=== PATIENT | male | born 1995 | race Caucasian/White ===

== ENCOUNTER 2017-11-04 22:26 | Emergency (ER) | payer SELFPAY ==
[2017-11-04 23:31] LABS: #Basophils 0.1 thou/uL (0.0-0.2); #Eosinphils 0.1 thou/uL (0.0-0.7); #Lymphocytes 2.4 thou/uL (1.20-3.40); #Monocytes 0.6 thou/uL (0.11-0.59); #Neutrophils 6.9 thou/uL (1.40-6.50); %Basophils 0.5 % (0.0-1.0); %Eosinophils 1.1 % (0.0-10.0); %Lymphocytes 23.5 % (21.0-51.0); %Monocytes 6.1 % (0.0-10.0); Hematocrit 39.7 % (42.0-52.0); Mean Platelet Volume 7.7 fL (7.4-10.4); Red Blood Cell (RBC) Count 4.46 mill/uL (4.70-6.10)
[2017-11-04 23:54] LABS: ALT (SGPT) 20 U/L (8-55); AST (SGOT) 38 U/L (5-34); Acetaminophen Less than 6.0 mcg/mL (10.0-30.0); Alkaline Phosphatase 78 U/L (40-150); Anion Gap 13 mmol/L (10-20); BUN (Urea Nitrogen) 16 mg/dL (8.9-20.6); Bilirubin, Total 0.8 mg/dL (0.2-1.2); CK (CPK) 1643 U/L (30-200); Calc. Creatinine Clearance 0 mL/min (70-130); Calcium 10.3 mg/dL (7.8-10.44); Carbon Dioxide 29 mmol/L (22-29); Chloride 105 mmol/L (98-107); Estimated GFR-MDRD 85; Globulin 3.1 g/dL (2.4-3.5); Protein, Total 7.9 g/dL (6.0-8.3); Salicylate Less than 8.0 mg/dL (15.0-30.0)
== END 2017-11-05 02:49 | disposition home or self-care (01) ==
LOC: ERS 22:26
DX: G47.00 Insomnia, unspecified (principal); R79.89 Other specified abnormal findings of blood chemistry; F31.9 Bipolar disorder, unspecified; F17.210 Nicotine dependence, cigarettes, uncomplicated
CPT/HCPCS: 36415; 80053; 80307; 82550; 84443; 85025; 99283

== ENCOUNTER 2017-11-15 15:29 | Emergency (ER) | payer SELFPAY | END 2017-11-15 15:54 | disposition home or self-care (01) | LOC: ERS 15:29 | DX: F12.10 Cannabis abuse, uncomplicated (principal); F10.10 Alcohol abuse, uncomplicated; F17.210 Nicotine dependence, cigarettes, uncomplicated | CPT/HCPCS: 99284 ==

== ENCOUNTER 2018-04-01 19:07 | Emergency (ER) | payer SELFPAY ==
--- NOTE | 2018-04-01 19:51 | RAD ---
CHEST ONE VIEW 04/01/18 HISTORY: Chest pain. COMPARISON: Chest radiograph 2015. FINDINGS: Lungs are clear. No pneumothorax or effusion. The cardiac silhouette and mediastinal contours are wit hin normal limits. IMPRESSION: No acute intrathoracic abnormality. POS: GRICELDAH
[2018-04-01 20:14] LABS: #Basophils 0.1 thou/uL (0.0-0.2); #Eosinphils 0.3 thou/uL (0.0-0.7); #Lymphocytes 3.1 thou/uL (1.20-3.40); #Monocytes 0.5 thou/uL (0.11-0.59); #Neutrophils 7.7 thou/uL (1.40-6.50); %Basophils 0.5 % (0.0-1.0); %Eosinophils 2.6 % (0.0-10.0); %Lymphocytes 26.7 % (21.0-51.0); %Neutrophils 66.1 % (42.0-75.0); Hemoglobin 14.9 g/dL (14.0-18.0); Mean Corpuscular HGB CONC 35.2 g/dL (32.0-36.0); Platelet Count 226 thou/uL (130-400); RBC Distribution Width 11.3 % (11.5-14.5); White Blood Cell (WBC) Count 11.6 thou/uL (4.8-10.8)
[2018-04-01 20:43] LABS: Anion Gap 14 mmol/L (10-20); Carbon Dioxide 22 mmol/L (22-29); Chloride 106 mmol/L (98-107); Potassium 3.5 mmol/L (3.5-5.1); Sodium 138 mmol/L (136-145)
[2018-04-01 20:50] LABS: ALT (SGPT) 17 U/L (8-55); AST (SGOT) 25 U/L (5-34); Albumin 4.4 g/dL (3.5-5.0); Alkaline Phosphatase 64 U/L (40-150); BUN (Urea Nitrogen) 16 mg/dL (8.9-20.6); Bilirubin, Total 1.2 mg/dL (0.2-1.2); CK (CPK) 775 U/L (30-200); Calc. Creatinine Clearance 0 mL/min (70-130); Calcium 8.6 mg/dL (7.8-10.44); Estimated GFR-MDRD Greater than 90; Globulin 2.5 g/dL (2.4-3.5); Glucose 128 mg/dL (70-105); Protein, Total 6.9 g/dL (6.0-8.3)
--- NOTE | 2018-04-04 15:23 | EKG ---
Test Reason : Blood Pressure : / mmHG Vent. Rate : 084 BPM Atrial Rate : 084 BPM P-R Int : 126 ms QRS Dur : 100 ms QT Int : 376 ms P-R-T Axes : 067 021 020 degrees QTc Int : 444 ms Normal sinus rhythm Normal ECG Confirmed by TARIK GRIMES, ASHLYN Jean ([id number]), greeting card editor ROXANA AVELAR ([id number]) on 04/04/2018 3:22:57 PM Referred By: TARIK Confirmed By:ASHLYN MONTANEZ MD
== END 2018-04-01 20:23 | disposition left against medical advice (07) ==
LOC: ERS 19:07
DX: R07.9 Chest pain, unspecified (principal); F17.210 Nicotine dependence, cigarettes, uncomplicated; F31.9 Bipolar disorder, unspecified; Z79.899 Other long term (current) drug therapy
CPT/HCPCS: 36415; 71045; 80053; 82550; 83880; 85025; 93005

== ENCOUNTER 2018-04-23 21:07 | Emergency (ER) | payer SELFPAY ==
[2018-04-23 21:31] LABS: Bilirubin Negative (Negative); Blood, Urine Negative (Negative); Clarity CLEAR (Clear); Glucose, Urine (Dipstick) Negative (Negative); Leukocyte Negative (Negative); Nitrite Negative (Negative); Protein, Urine (Dipstick) Negative (Neg-Trace); Specific Gravity, Urine 1.023 (1.002-1.036)
[2018-04-23 21:41] LABS: Amphetamine Not Detected (NotDetected); Barbiturates Screen Not Detected (NotDetected); Benzodiazepine Screen Not Detected (NotDetected); Cocaine Metabolite Screen Not Detected (NotDetected); Medtox Control Line Valid? VALID (VALID); Medtox Reader # READER 1; Methadone Not Detected (NotDetected); Methamphetamine Not Detected (NotDetected); Opiate Screen Not Detected (NotDetected); Oxycodone Screen Not Detected (NotDetected); Phencyclidine (PCP) Not Detected (NotDetected); THC/Cannabinoid Screen Detected (NotDetected); Tricyclic Screen Not Detected (NotDetected)
[2018-04-23 21:48] LABS: #Basophils 0.1 thou/uL (0.0-0.2); #Eosinphils 0.3 thou/uL (0.0-0.7); #Lymphocytes 2.6 thou/uL (1.20-3.40); #Monocytes 0.6 thou/uL (0.11-0.59); #Neutrophils 7.2 thou/uL (1.40-6.50); %Basophils 0.5 % (0.0-1.0); %Eosinophils 2.4 % (0.0-10.0); %Lymphocytes 24.2 % (21.0-51.0); %Monocytes 5.3 % (0.0-10.0); %Neutrophils 67.6 % (42.0-75.0); Mean Corpuscular HGB CONC 35.6 g/dL (32.0-36.0); Mean Platelet Volume 7.6 fL (7.4-10.4); Platelet Count 202 thou/uL (130-400); RBC Distribution Width 11.7 % (11.5-14.5); Red Blood Cell (RBC) Count 4.84 mill/uL (4.70-6.10); White Blood Cell (WBC) Count 10.6 thou/uL (4.8-10.8)
[2018-04-23 21:56] LABS: INR-International Normal Ratio 0.9; PTT 27.7 SEC (22.9-36.1); Prothrombin Time 12.6 SEC (12.0-14.7)
[2018-04-23 22:07] LABS: ALT (SGPT) 119 U/L (8-55); AST (SGOT) 59 U/L (5-34); Albumin 4.4 g/dL (3.5-5.0); Alkaline Phosphatase 58 U/L (40-150); Anion Gap 15 mmol/L (10-20); BUN (Urea Nitrogen) 18 mg/dL (8.9-20.6); Bilirubin, Total 0.6 mg/dL (0.2-1.2); Calc. Creatinine Clearance 0 mL/min (70-130); Calcium 9.3 mg/dL (7.8-10.44); Carbon Dioxide 25 mmol/L (22-29); Chloride 105 mmol/L (98-107); Estimated GFR-MDRD Greater than 90; Globulin 2.6 g/dL (2.4-3.5); Glucose 91 mg/dL (70-105); Potassium 3.9 mmol/L (3.5-5.1); Sodium 141 mmol/L (136-145)
[2018-04-23 22:08] LABS: Acetaminophen Less than 6.0 mcg/mL (10.0-30.0); Alcohol Less than 10 mg/dL (Less than 10); CK (CPK) 281 U/L (30-200); Salicylate Less than 8.0 mg/dL (15.0-30.0)
[2018-04-24] MEDS ORDERED: diphenhydrAMINE 50 MG/ML VIAL ONE (10:47)
[2018-04-24] MEDS ORDERED: Haloperidol Lactate 5 MG/ML VIAL ONE (10:47)
[2018-04-24] MEDS ORDERED: Lorazepam 2 MG/ML VIAL ONE (10:48)
== END 2018-04-27 17:52 | disposition home or self-care (01) ==
LOC: ERS 21:07
DX: F43.20 Adjustment disorder, unspecified (principal); F17.210 Nicotine dependence, cigarettes, uncomplicated; F31.9 Bipolar disorder, unspecified; Z79.899 Other long term (current) drug therapy
CPT/HCPCS: 36415; 80053; 80306; 80307; 81003; 82550; 84443; 85025; 85610; 85730; 99285; J1200; J1630; J2060

== ENCOUNTER 2018-05-06 18:22 | Emergency (ER) | payer SELFPAY ==
[2018-05-06] MEDS ORDERED: Ziprasidone 20 MG VIAL ONE (18:34)
[2018-05-06 18:39] LABS: #Eosinphils 0.2 thou/uL (0.0-0.7); #Lymphocytes 2.3 thou/uL (1.20-3.40); #Monocytes 0.4 thou/uL (0.11-0.59); #Neutrophils 6.3 thou/uL (1.40-6.50); %Basophils 0.5 % (0.0-1.0); %Eosinophils 2.5 % (0.0-10.0); %Lymphocytes 24.4 % (21.0-51.0); %Monocytes 4.8 % (0.0-10.0); %Neutrophils 67.8 % (42.0-75.0); Hemoglobin 14.3 g/dL (14.0-18.0); Mean Corpuscular HGB CONC 35.9 g/dL (32.0-36.0); Mean Corpuscular Hemoglobin 31.3 pg (27.0-31.0); Mean Corpuscular Volume 87.1 fL (78.0-98.0); Mean Platelet Volume 7.5 fL (7.4-10.4); Platelet Count 229 thou/uL (130-400); RBC Distribution Width 11.7 % (11.5-14.5); Red Blood Cell (RBC) Count 4.58 mill/uL (4.70-6.10); White Blood Cell (WBC) Count 9.3 thou/uL (4.8-10.8)
[2018-05-06 18:47] LABS: Bilirubin Negative (Negative); Blood, Urine Negative (Negative); Clarity CLEAR (Clear); Glucose, Urine (Dipstick) Negative (Negative); Leukocyte Negative (Negative); Nitrite Negative (Negative); Protein, Urine (Dipstick) Negative (Neg-Trace); Specific Gravity, Urine 1.021 (1.002-1.036)
[2018-05-06 18:54] LABS: ALT (SGPT) 35 U/L (8-55); AST (SGOT) 19 U/L (5-34); Albumin 4.8 g/dL (3.5-5.0); Alkaline Phosphatase 69 U/L (40-150); Anion Gap 15 mmol/L (10-20); BUN (Urea Nitrogen) 13 mg/dL (8.9-20.6); Bilirubin, Total 0.7 mg/dL (0.2-1.2); Calc. Creatinine Clearance 0 mL/min (70-130); Calcium 9.6 mg/dL (7.8-10.44); Carbon Dioxide 24 mmol/L (22-29); Chloride 105 mmol/L (98-107); Estimated GFR-MDRD Greater than 90; Globulin 2.5 g/dL (2.4-3.5); Glucose 97 mg/dL (70-105); Protein, Total 7.3 g/dL (6.0-8.3); Sodium 140 mmol/L (136-145)
[2018-05-06 18:56] LABS: Amphetamine Not Detected (NotDetected); Barbiturates Screen Not Detected (NotDetected); Benzodiazepine Screen Not Detected (NotDetected); Cocaine Metabolite Screen Not Detected (NotDetected); Medtox Control Line Valid? VALID (VALID); Medtox Reader # READER 1; Methadone Not Detected (NotDetected); Methamphetamine Not Detected (NotDetected); Opiate Screen Not Detected (NotDetected); Oxycodone Screen Not Detected (NotDetected); Phencyclidine (PCP) Not Detected (NotDetected); THC/Cannabinoid Screen Detected (NotDetected); Tricyclic Screen Not Detected (NotDetected)
[2018-05-06 19:00] LABS: Acetaminophen Less than 6.0 mcg/mL (10.0-30.0); Alcohol Less than 10 mg/dL (Less than 10); CK (CPK) 265 U/L (30-200); Salicylate Less than 8.0 mg/dL (15.0-30.0)
--- NOTE | 2018-05-06 19:09 | CT ---
CT BRAIN 05/06/18 PROVIDED CLINICAL HISTORY: Altered mental status. COMPARISON: 11/08/12 FINDINGS: The ventricular system is unchanged in size and morphology. There is no evidence for intracranial hem orrhage or mass effect. The extracranial soft tissues and osseous structures demonstrate no acute fin dings. IMPRESSION: No evidence for intracranial hemorrhage or mass effect. POS: OFF
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
== END 2018-05-06 23:58 | disposition home or self-care (01) ==
LOC: ERS 18:22
DX: F12.10 Cannabis abuse, uncomplicated (principal); R45.1 Restlessness and agitation; F31.9 Bipolar disorder, unspecified; F17.210 Nicotine dependence, cigarettes, uncomplicated
CPT/HCPCS: 51702; 70450; 72125; 80053; 80306; 80307; 81003; 82550; 84443; 85025; 93005; 96372; J3486

== ENCOUNTER 2018-06-11 07:23 | Emergency (ER) | payer SELFPAY ==
[2018-06-11 07:46] LABS: #Basophils 0.1 thou/uL (0.0-0.2); #Eosinphils 0.2 thou/uL (0.0-0.7); #Lymphocytes 1.5 thou/uL (1.20-3.40); #Monocytes 0.3 thou/uL (0.11-0.59); #Neutrophils 6.4 thou/uL (1.40-6.50); %Basophils 0.7 % (0.0-1.0); %Eosinophils 1.8 % (0.0-10.0); %Lymphocytes 17.3 % (21.0-51.0); %Monocytes 3.8 % (0.0-10.0); %Neutrophils 76.3 % (42.0-75.0); Hemoglobin 14.8 g/dL (14.0-18.0); Mean Corpuscular HGB CONC 35.1 g/dL (32.0-36.0); Mean Corpuscular Hemoglobin 31.3 pg (27.0-31.0); Mean Corpuscular Volume 89.2 fL (78.0-98.0); Mean Platelet Volume 8.1 fL (7.4-10.4); Platelet Count 171 thou/uL (130-400); RBC Distribution Width 11.6 % (11.5-14.5); Red Blood Cell (RBC) Count 4.73 mill/uL (4.70-6.10); White Blood Cell (WBC) Count 8.4 thou/uL (4.8-10.8)
[2018-06-11 07:53] LABS: Bilirubin Negative (Negative); Blood, Urine Negative (Negative); Clarity CLEAR (Clear); Glucose, Urine (Dipstick) Negative (Negative); Leukocyte Negative (Negative); Nitrite Negative (Negative); Protein, Urine (Dipstick) Negative (Neg-Trace); Specific Gravity, Urine 1.009 (1.002-1.036); Urobilinogen 0.2 mg/dL (0.2-1.0); pH, Urine 7.5 (5.0-9.0)
[2018-06-11 08:04] LABS: Amphetamine Not Detected (NotDetected); Barbiturates Screen Not Detected (NotDetected); Benzodiazepine Screen Not Detected (NotDetected); Cocaine Metabolite Screen Not Detected (NotDetected); Medtox Control Line Valid? VALID (VALID); Medtox Reader # READER 4; Methadone Not Detected (NotDetected); Methamphetamine Not Detected (NotDetected); Opiate Screen Not Detected (NotDetected); Oxycodone Screen Not Detected (NotDetected); Phencyclidine (PCP) Not Detected (NotDetected); THC/Cannabinoid Screen Detected (NotDetected); Tricyclic Screen Not Detected (NotDetected)
[2018-06-11] MEDS ORDERED: Ibuprofen 200 MG TAB ONE (08:05)
[2018-06-11 08:08] LABS: ALT (SGPT) 19 U/L (8-55); AST (SGOT) 15 U/L (5-34); Acetaminophen Less than 6.0 mcg/mL (10.0-30.0); Albumin 4.6 g/dL (3.5-5.0); Alcohol Less than 10 mg/dL (Less than 10); Alkaline Phosphatase 60 U/L (40-150); Anion Gap 12 mmol/L (10-20); BUN (Urea Nitrogen) 11 mg/dL (8.9-20.6); Bilirubin, Total 0.7 mg/dL (0.2-1.2); Calc. Creatinine Clearance 0 mL/min (70-130); Calcium 9.2 mg/dL (7.8-10.44); Carbon Dioxide 25 mmol/L (22-29); Chloride 106 mmol/L (98-107); Estimated GFR-MDRD Greater than 90; Globulin 2.5 g/dL (2.4-3.5); Glucose 100 mg/dL (70-105); Protein, Total 7.1 g/dL (6.0-8.3); Salicylate Less than 8.0 mg/dL (15.0-30.0); Sodium 139 mmol/L (136-145)
== END 2018-06-11 12:00 | disposition home or self-care (01) ==
LOC: ERS 07:23
DX: F32.9 Major depressive disorder, single episode, unspecified (principal); F17.210 Nicotine dependence, cigarettes, uncomplicated
CPT/HCPCS: 36415; 80053; 80306; 80307; 81003; 84443; 85025; 93005

== ENCOUNTER 2018-07-06 22:37 | Emergency (ER) | payer SELFPAY ==
[2018-07-06] MEDS ORDERED: Ibuprofen 800 MG TAB ONE (22:49)
[2018-07-06] MEDS ORDERED: diphenhydrAMINE 25 MG CAP ONE (22:49)
[2018-07-06] MEDS ORDERED: Metoclopramide HCl 10 MG TAB PO SCH (23:00)
[2018-07-06 23:09] LABS: #Eosinphils 0.2 thou/uL (0.0-0.7); #Lymphocytes 2.2 thou/uL (1.20-3.40); #Monocytes 0.5 thou/uL (0.11-0.59); #Neutrophils 6.2 thou/uL (1.40-6.50); %Basophils 0.5 % (0.0-1.0); %Lymphocytes 24.1 % (21.0-51.0); %Neutrophils 68.5 % (42.0-75.0); Hemoglobin 15.3 g/dL (14.0-18.0); Mean Corpuscular HGB CONC 35.9 g/dL (32.0-36.0); Mean Corpuscular Hemoglobin 31.7 pg (27.0-31.0); Mean Corpuscular Volume 88.1 fL (78.0-98.0); Mean Platelet Volume 7.7 fL (7.4-10.4); Platelet Count 218 thou/uL (130-400); RBC Distribution Width 11.8 % (11.5-14.5); Red Blood Cell (RBC) Count 4.83 mill/uL (4.70-6.10); White Blood Cell (WBC) Count 9.1 thou/uL (4.8-10.8)
[2018-07-06 23:15] LABS: Bilirubin Small (Negative); Blood, Urine Negative (Negative); Clarity CLEAR (Clear); Glucose, Urine (Dipstick) Negative (Negative); Leukocyte Negative (Negative); Nitrite Negative (Negative); Protein, Urine (Dipstick) 30 mg/dL (Neg-Trace); Specific Gravity, Urine 1.038 (1.002-1.036)
[2018-07-06 23:17] LABS: Bacteria/HPF None Seen HPF (None Seen); Hyaline Casts/LPF 0-3 HYALINE CAST LPF (0-3 Hyaline); RBC/HPF 0-3 HPF (0-3); Squamous Epithelial None Seen HPF (0-3); WBC/HPF 0-3 HPF (0-3)
[2018-07-06 23:23] LABS: Medtox Reader # READER 1
[2018-07-06 23:24] LABS: Amphetamine Not Detected (NotDetected); Barbiturates Screen Not Detected (NotDetected); Benzodiazepine Screen Not Detected (NotDetected); Cocaine Metabolite Screen Not Detected (NotDetected); Medtox Control Line Valid? VALID (VALID); Methadone Not Detected (NotDetected); Methamphetamine Not Detected (NotDetected); Opiate Screen Not Detected (NotDetected); Oxycodone Screen Not Detected (NotDetected); Phencyclidine (PCP) Not Detected (NotDetected); THC/Cannabinoid Screen Detected (NotDetected); Tricyclic Screen Not Detected (NotDetected)
[2018-07-06 23:32] LABS: Acetaminophen Less than 6.0 mcg/mL (10.0-30.0); Alcohol Less than 10 mg/dL (Less than 10); CK (CPK) 154 U/L (30-200); Salicylate Less than 8.0 mg/dL (15.0-30.0)
[2018-07-06 23:33] LABS: ALT (SGPT) 17 U/L (8-55); AST (SGOT) 15 U/L (5-34); Albumin 4.9 g/dL (3.5-5.0); Alkaline Phosphatase 74 U/L (40-150); Anion Gap 14 mmol/L (10-20); BUN (Urea Nitrogen) 16 mg/dL (8.9-20.6); Bilirubin, Total 1.1 mg/dL (0.2-1.2); Calc. Creatinine Clearance 0 mL/min (70-130); Calcium 9.8 mg/dL (7.8-10.44); Carbon Dioxide 26 mmol/L (22-29); Chloride 104 mmol/L (98-107); Estimated GFR-MDRD Greater than 90; Glucose 116 mg/dL (70-105); Lipase 28 U/L (8-78); Potassium 3.9 mmol/L (3.5-5.1); Protein, Total 7.9 g/dL (6.0-8.3); Sodium 140 mmol/L (136-145)
[2018-07-10] MEDS ORDERED: OLANZapine 5 MG TAB PO SCH (01:00)
--- NOTE | 2018-07-11 12:17 | EKG ---
Test Reason : Blood Pressure : / mmHG Vent. Rate : 046 BPM Atrial Rate : 046 BPM P-R Int : 126 ms QRS Dur : 102 ms QT Int : 398 ms P-R-T Axes : 060 018 014 degrees QTc Int : 348 ms Sinus bradycardia Otherwise normal ECG Confirmed by LYN COSTELLO ([id number]), video effects editor YANG PRIDE ([id number]) on 07/11/2018 12:16:51 PM Referred By: Confirmed By:LYN COSTELLO
== END 2018-07-10 13:16 | disposition home or self-care (01) ==
LOC: ERS 22:37
DX: R45.851 Suicidal ideations (principal); F12.10 Cannabis abuse, uncomplicated; F17.210 Nicotine dependence, cigarettes, uncomplicated; F31.9 Bipolar disorder, unspecified
CPT/HCPCS: 36415; 80053; 80306; 80307; 81003; 81015; 82550; 83690; 84443; 85025; 93005

== ENCOUNTER 2018-08-21 14:12 | Emergency (ER) | payer SELFPAY ==
[2018-08-21 15:47] LABS: #Eosinphils 0.2 thou/uL (0.0-0.7); #Lymphocytes 1.9 thou/uL (1.20-3.40); #Monocytes 0.6 thou/uL (0.11-0.59); #Neutrophils 7.2 thou/uL (1.40-6.50); %Basophils 0.3 % (0.0-1.0); %Eosinophils 2.4 % (0.0-10.0); %Lymphocytes 19.5 % (21.0-51.0); %Monocytes 5.6 % (0.0-10.0); %Neutrophils 72.2 % (42.0-75.0); Hemoglobin 14.2 g/dL (14.0-18.0); Mean Corpuscular HGB CONC 34.8 g/dL (32.0-36.0); Mean Corpuscular Hemoglobin 30.9 pg (27.0-31.0); Mean Corpuscular Volume 88.8 fL (78.0-98.0); Mean Platelet Volume 8.6 fL (7.4-10.4); Platelet Count 213 thou/uL (130-400); RBC Distribution Width 11.8 % (11.5-14.5); Red Blood Cell (RBC) Count 4.58 mill/uL (4.70-6.10); White Blood Cell (WBC) Count 9.9 thou/uL (4.8-10.8)
[2018-08-21 16:06] LABS: ALT (SGPT) 19 U/L (8-55); AST (SGOT) 24 U/L (5-34); Acetaminophen Less than 6.0 mcg/mL (10.0-30.0); Albumin 4.3 g/dL (3.5-5.0); Alcohol Less than 10 mg/dL (Less than 10); Alkaline Phosphatase 65 U/L (40-150); Anion Gap 14 mmol/L (10-20); BUN (Urea Nitrogen) 19 mg/dL (8.9-20.6); Bilirubin, Total 0.7 mg/dL (0.2-1.2); Calc. Creatinine Clearance 0 mL/min (70-130); Calcium 9.2 mg/dL (7.8-10.44); Carbon Dioxide 23 mmol/L (22-29); Chloride 106 mmol/L (98-107); Estimated GFR-MDRD Greater than 90; Globulin 2.5 g/dL (2.4-3.5); Glucose 99 mg/dL (70-105); Potassium 3.9 mmol/L (3.5-5.1); Protein, Total 6.8 g/dL (6.0-8.3); Salicylate Less than 8.0 mg/dL (15.0-30.0); Sodium 139 mmol/L (136-145)
[2018-08-21 18:57] LABS: Bilirubin Negative (Negative); Blood, Urine Negative (Negative); Clarity CLEAR (Clear); Glucose, Urine (Dipstick) Negative (Negative); Leukocyte Negative (Negative); Nitrite Negative (Negative); Protein, Urine (Dipstick) Negative (Neg-Trace); Specific Gravity, Urine 1.019 (1.002-1.036)
[2018-08-21 19:06] LABS: Amphetamine Not Detected (NotDetected); Barbiturates Screen Not Detected (NotDetected); Benzodiazepine Screen Not Detected (NotDetected); Cocaine Metabolite Screen Not Detected (NotDetected); Medtox Control Line Valid? VALID (VALID); Medtox Reader # READER 4; Methadone Not Detected (NotDetected); Methamphetamine Not Detected (NotDetected); Opiate Screen Not Detected (NotDetected); Oxycodone Screen Not Detected (NotDetected); Phencyclidine (PCP) Not Detected (NotDetected); THC/Cannabinoid Screen Detected (NotDetected); Tricyclic Screen Not Detected (NotDetected)
== END 2018-08-22 13:15 | disposition home or self-care (01) ==
LOC: ERS 14:12
DX: R45.851 Suicidal ideations (principal); F17.210 Nicotine dependence, cigarettes, uncomplicated; F31.9 Bipolar disorder, unspecified; Z79.899 Other long term (current) drug therapy
CPT/HCPCS: 36415; 80053; 80306; 80307; 81003; 84443; 85025; 99285

== ENCOUNTER 2018-08-27 19:13 | Emergency (ER) | payer SELFPAY ==
[2018-08-27 19:58] LABS: #Basophils 0.1 thou/uL (0.0-0.2); #Eosinphils 0.2 thou/uL (0.0-0.7); #Lymphocytes 2.5 thou/uL (1.20-3.40); #Monocytes 0.6 thou/uL (0.11-0.59); %Basophils 0.6 % (0.0-1.0); %Eosinophils 2.5 % (0.0-10.0); %Monocytes 6.1 % (0.0-10.0); %Neutrophils 63.8 % (42.0-75.0); Hemoglobin 14.8 g/dL (14.0-18.0); Mean Corpuscular HGB CONC 34.7 g/dL (32.0-36.0); Mean Corpuscular Hemoglobin 31.1 pg (27.0-31.0); Mean Corpuscular Volume 89.4 fL (78.0-98.0); Mean Platelet Volume 8.5 fL (7.4-10.4); Platelet Count 215 thou/uL (130-400); Red Blood Cell (RBC) Count 4.77 mill/uL (4.70-6.10); White Blood Cell (WBC) Count 9.4 thou/uL (4.8-10.8)
[2018-08-27 20:07] LABS: Amphetamine Not Detected (NotDetected); Barbiturates Screen Not Detected (NotDetected); Benzodiazepine Screen Not Detected (NotDetected); Cocaine Metabolite Screen Not Detected (NotDetected); Medtox Control Line Valid? VALID (VALID); Medtox Reader # READER 1; Methadone Not Detected (NotDetected); Methamphetamine Not Detected (NotDetected); Opiate Screen Not Detected (NotDetected); Oxycodone Screen Not Detected (NotDetected); Phencyclidine (PCP) Not Detected (NotDetected); THC/Cannabinoid Screen Not Detected (NotDetected); Tricyclic Screen Not Detected (NotDetected)
[2018-08-27 20:17] LABS: ALT (SGPT) 19 U/L (8-55); AST (SGOT) 17 U/L (5-34); Acetaminophen Less than 6.0 mcg/mL (10.0-30.0); Albumin 4.5 g/dL (3.5-5.0); Alcohol Less than 10 mg/dL (Less than 10); Alkaline Phosphatase 70 U/L (40-150); Anion Gap 13 mmol/L (10-20); BUN (Urea Nitrogen) 16 mg/dL (8.9-20.6); Bilirubin, Total 0.5 mg/dL (0.2-1.2); Calc. Creatinine Clearance 0 mL/min (70-130); Calcium 9.8 mg/dL (7.8-10.44); Carbon Dioxide 23 mmol/L (22-29); Chloride 107 mmol/L (98-107); Estimated GFR-MDRD Greater than 90; Globulin 2.9 g/dL (2.4-3.5); Glucose 100 mg/dL (70-105); Potassium 3.9 mmol/L (3.5-5.1); Protein, Total 7.4 g/dL (6.0-8.3); Salicylate Less than 8.0 mg/dL (15.0-30.0); Sodium 139 mmol/L (136-145)
[2018-08-27 21:38] LABS: Bilirubin Negative (Negative); Blood, Urine Negative (Negative); Clarity CLEAR (Clear); Glucose, Urine (Dipstick) Negative (Negative); Leukocyte Negative (Negative); Nitrite Negative (Negative); Protein, Urine (Dipstick) Negative (Neg-Trace); Specific Gravity, Urine 1.019 (1.002-1.036)
== END 2018-09-05 15:38 | disposition home or self-care (01) ==
LOC: ERS 19:13
DX: F32.9 Major depressive disorder, single episode, unspecified (principal); F60.89 Other specific personality disorders; R45.851 Suicidal ideations; Z79.899 Other long term (current) drug therapy
CPT/HCPCS: 36415; 80053; 80306; 80307; 81003; 84443; 85025; 99285

== ENCOUNTER 2018-09-12 01:46 | Emergency (ER) | payer SELFPAY ==
[2018-09-12 02:33] LABS: Bilirubin Negative (Negative); Blood, Urine Negative (Negative); Clarity CLEAR (Clear); Glucose, Urine (Dipstick) Negative (Negative); Leukocyte Negative (Negative); Nitrite Negative (Negative); Protein, Urine (Dipstick) Negative (Neg-Trace); Specific Gravity, Urine 1.014 (1.002-1.036); Urobilinogen 0.2 mg/dL (0.2-1.0)
[2018-09-12 03:03] LABS: #Basophils 0.1 thou/uL (0.0-0.2); #Lymphocytes 2.5 thou/uL (1.20-3.40); #Monocytes 0.7 thou/uL (0.11-0.59); #Neutrophils 11.9 thou/uL (1.40-6.50); %Basophils 0.4 % (0.0-1.0); %Eosinophils 0.3 % (0.0-10.0); %Lymphocytes 16.4 % (21.0-51.0); %Monocytes 4.3 % (0.0-10.0); %Neutrophils 78.6 % (42.0-75.0); Mean Corpuscular HGB CONC 35.9 g/dL (32.0-36.0); Mean Corpuscular Hemoglobin 31.7 pg (27.0-31.0); Mean Corpuscular Volume 88.3 fL (78.0-98.0); Platelet Count 239 thou/uL (130-400); RBC Distribution Width 11.7 % (11.5-14.5); Red Blood Cell (RBC) Count 5.04 mill/uL (4.70-6.10); White Blood Cell (WBC) Count 15.2 thou/uL (4.8-10.8)
[2018-09-12 03:22] LABS: ALT (SGPT) 29 U/L (8-55); AST (SGOT) 26 U/L (5-34); Albumin 4.8 g/dL (3.5-5.0); Alcohol 14 mg/dL (Less than 10); Alkaline Phosphatase 65 U/L (40-150); Anion Gap 15 mmol/L (10-20); BUN (Urea Nitrogen) 14 mg/dL (8.9-20.6); Bilirubin, Total 0.8 mg/dL (0.2-1.2); Calc. Creatinine Clearance 0 mL/min (70-130); Calcium 9.9 mg/dL (7.8-10.44); Carbon Dioxide 23 mmol/L (22-29); Chloride 105 mmol/L (98-107); Estimated GFR-MDRD Greater than 90; Globulin 2.8 g/dL (2.4-3.5); Glucose 103 mg/dL (70-105); Potassium 3.7 mmol/L (3.5-5.1); Protein, Total 7.6 g/dL (6.0-8.3); Sodium 139 mmol/L (136-145)
[2018-09-12 03:26] LABS: Amphetamine Not Detected (NotDetected); Barbiturates Screen Not Detected (NotDetected); Benzodiazepine Screen Not Detected (NotDetected); Cocaine Metabolite Screen Not Detected (NotDetected); Medtox Control Line Valid? VALID (VALID); Medtox Reader # READER 4; Methadone Not Detected (NotDetected); Methamphetamine Not Detected (NotDetected); Opiate Screen Not Detected (NotDetected); Oxycodone Screen Not Detected (NotDetected); Phencyclidine (PCP) Not Detected (NotDetected); THC/Cannabinoid Screen Detected (NotDetected); Tricyclic Screen Not Detected (NotDetected)
[2018-09-12 04:29] LABS: Acetaminophen Less than 6.0 mcg/mL (10.0-30.0); Salicylate Less than 8.0 mg/dL (15.0-30.0)
--- NOTE | 2018-09-12 10:00 | RAD ---
LUMBAR SPINE 3 VIEWS: Date: 09/12/18 HISTORY: Back pain. FINDINGS: Lumbar vertebra maintain normal height and alignment. Disc spaces are normally maintained. S1 is mild ly transitional. IMPRESSION: Unremarkable lumbar spine. POS: DEACON
== END 2018-09-12 14:49 | disposition home or self-care (01) ==
LOC: ERS 01:46
DX: F43.0 Acute stress reaction (principal); F19.10 Other psychoactive substance abuse, uncomplicated; F31.9 Bipolar disorder, unspecified; F32.9 Major depressive disorder, single episode, unspecified; Z79.899 Other long term (current) drug therapy
CPT/HCPCS: 36416; 72100; 80053; 80306; 80307; 81003; 82550; 84443; 85025

== ENCOUNTER 2018-09-16 20:49 | Emergency (ER) | payer SELFPAY ==
[2018-09-16 22:04] LABS: Bilirubin Negative (Negative); Blood, Urine Negative (Negative); Clarity CLEAR (Clear); Glucose, Urine (Dipstick) Negative (Negative); Leukocyte Negative (Negative); Nitrite Negative (Negative); Protein, Urine (Dipstick) Negative (Neg-Trace); Specific Gravity, Urine 1.013 (1.002-1.036); pH, Urine 7.5 (5.0-9.0)
[2018-09-16 22:12] LABS: Amphetamine Not Detected (NotDetected); Benzodiazepine Screen Not Detected (NotDetected); Cocaine Metabolite Screen Not Detected (NotDetected); Medtox Reader # READER 1; Methadone Not Detected (NotDetected); Methamphetamine Not Detected (NotDetected); Opiate Screen Not Detected (NotDetected); Phencyclidine (PCP) Not Detected (NotDetected); THC/Cannabinoid Screen Detected (NotDetected); Tricyclic Screen Not Detected (NotDetected)
[2018-09-16 22:13] LABS: #Basophils 0.1 thou/uL (0.0-0.2); #Eosinphils 0.3 thou/uL (0.0-0.7); #Lymphocytes 2.7 thou/uL (1.20-3.40); #Monocytes 0.4 thou/uL (0.11-0.59); #Neutrophils 6.9 thou/uL (1.40-6.50); %Basophils 0.6 % (0.0-1.0); %Eosinophils 2.9 % (0.0-10.0); %Lymphocytes 25.9 % (21.0-51.0); %Monocytes 3.8 % (0.0-10.0); %Neutrophils 66.9 % (42.0-75.0); Hemoglobin 14.5 g/dL (14.0-18.0); Mean Corpuscular Hemoglobin 31.6 pg (27.0-31.0); Mean Corpuscular Volume 90.1 fL (78.0-98.0); Platelet Count 223 thou/uL (130-400); RBC Distribution Width 11.8 % (11.5-14.5); Red Blood Cell (RBC) Count 4.59 mill/uL (4.70-6.10); White Blood Cell (WBC) Count 10.2 thou/uL (4.8-10.8)
[2018-09-16 22:13] LABS: Barbiturates Screen Not Detected (NotDetected); Medtox Control Line Valid? VALID (VALID); Oxycodone Screen Not Detected (NotDetected)
[2018-09-16 22:33] LABS: Acetaminophen Less than 6.0 mcg/mL (10.0-30.0); Alcohol Less than 10 mg/dL (Less than 10); Salicylate Less than 8.0 mg/dL (15.0-30.0)
[2018-09-16 22:41] LABS: ALT (SGPT) 24 U/L (8-55); AST (SGOT) 19 U/L (5-34); Albumin 4.3 g/dL (3.5-5.0); Alkaline Phosphatase 61 U/L (40-150); Anion Gap 11 mmol/L (10-20); BUN (Urea Nitrogen) 14 mg/dL (8.9-20.6); Bilirubin, Total 0.5 mg/dL (0.2-1.2); Calc. Creatinine Clearance 0 mL/min (70-130); Calcium 9.3 mg/dL (7.8-10.44); Carbon Dioxide 28 mmol/L (22-29); Chloride 106 mmol/L (98-107); Estimated GFR-MDRD Greater than 90; Globulin 2.8 g/dL (2.4-3.5); Glucose 84 mg/dL (70-105); Potassium 3.8 mmol/L (3.5-5.1); Protein, Total 7.1 g/dL (6.0-8.3); Sodium 141 mmol/L (136-145)
[2018-09-18] MEDS ORDERED: Divalproex Sodium 250 MG (DR) TAB PO PRN (00:07)
--- NOTE | 2018-09-28 16:41 | EKG ---
Test Reason : PSYCH Blood Pressure : / mmHG Vent. Rate : 064 BPM Atrial Rate : 064 BPM P-R Int : 134 ms QRS Dur : 102 ms QT Int : 380 ms P-R-T Axes : 038 010 007 degrees QTc Int : 392 ms Sinus rhythm with marked sinus arrhythmia Minimal voltage criteria for LVH, may be normal variant Borderline ECG Confirmed by LULY MCCARTNEY DO ([id number]), newspaper or periodical editor YANG PRIDE ([id number]) on 09/28/2018 4:40:40 PM Referred By: Confirmed By:LULY MCCARTNEY DO
== END 2018-09-18 00:24 | disposition home or self-care (01) ==
LOC: ERS 20:49
DX: M25.512 Pain in left shoulder (principal); R45.851 Suicidal ideations; F31.9 Bipolar disorder, unspecified; Z79.899 Other long term (current) drug therapy
CPT/HCPCS: 36415; 80053; 80306; 80307; 81003; 84443; 85025; 93005

== ENCOUNTER 2018-11-09 06:07 | Emergency (ER) | payer SELFPAY ==
[2018-11-09] MEDS ORDERED: Ketorolac Tromethamine 60 MG/2 ML VIAL ONE (06:35)
== END 2018-11-09 07:14 | disposition home or self-care (01) ==
LOC: ERS 06:07
DX: K08.89 Other specified disorders of teeth and supporting structures (principal); G89.29 Other chronic pain; M54.6 Pain in thoracic spine; F31.9 Bipolar disorder, unspecified
CPT/HCPCS: 96372; J1885

== ENCOUNTER → 2019-07-21 | Emergency (ER) | payer SELFPAY ==
[~2019-07-21] MED LIST: Divalproex Sodium 250 MG (DR) TAB ONE; Divalproex Sodium 250 MG (DR) TAB PO SCH; OLANZapine 5 MG TAB PO SCH; busPIRone HCl 10 MG TAB PO SCH
[2019-07-21 20:54] LABS: Medtox Reader # READER 4
[2019-07-21 20:55] LABS: Amphetamine Not Detected (NotDetected); Barbiturates Screen Not Detected (NotDetected); Benzodiazepine Screen Not Detected (NotDetected); Cocaine Metabolite Screen Not Detected (NotDetected); Medtox Control Line Valid? VALID (VALID); Methadone Not Detected (NotDetected); Methamphetamine Not Detected (NotDetected); Opiate Screen Not Detected (NotDetected); Oxycodone Screen Not Detected (NotDetected); Phencyclidine (PCP) Not Detected (NotDetected); THC/Cannabinoid Screen Not Detected (NotDetected); Tricyclic Screen Not Detected (NotDetected)
[2019-07-21 21:00] LABS: #Basophils 0.1 thou/uL (0.0-0.2); #Eosinphils 0.2 thou/uL (0.0-0.7); #Lymphocytes 2.4 thou/uL (1.20-3.40); #Monocytes 0.5 thou/uL (0.11-0.59); #Neutrophils 4.6 thou/uL (1.40-6.50); %Basophils 0.9 % (0.0-1.0); %Eosinophils 2.9 % (0.0-10.0); %Lymphocytes 30.9 % (21.0-51.0); %Monocytes 6.5 % (0.0-10.0); %Neutrophils 58.9 % (42.0-75.0); Hemoglobin 13.6 g/dL (14.0-18.0); Mean Corpuscular HGB CONC 35.2 g/dL (32.0-36.0); Mean Corpuscular Hemoglobin 31.7 pg (27.0-31.0); Mean Corpuscular Volume 90.1 fL (78.0-98.0); Mean Platelet Volume 8.2 fL (7.4-10.4); Platelet Count 202 thou/uL (130-400); RBC Distribution Width 12.2 % (11.5-14.5); Red Blood Cell (RBC) Count 4.29 mill/uL (4.70-6.10); White Blood Cell (WBC) Count 7.8 thou/uL (4.8-10.8)
[2019-07-21 21:23] LABS: ALT (SGPT) 46 U/L (8-55); AST (SGOT) 19 U/L (5-34); Acetaminophen Less than 6.0 mcg/mL (10.0-30.0); Albumin 4.4 g/dL (3.5-5.0); Alcohol Less than 10 mg/dL (Less than 10); Alkaline Phosphatase 61 U/L (40-150); Anion Gap 14 mmol/L (10-20); BUN (Urea Nitrogen) 14 mg/dL (8.9-20.6); Bilirubin, Total 0.9 mg/dL (0.2-1.2); CK (CPK) 263 U/L (30-200); Calc. Creatinine Clearance 0 mL/min (70-130); Calcium 8.7 mg/dL (7.8-10.44); Carbon Dioxide 24 mmol/L (22-29); Chloride 106 mmol/L (98-107); Estimated GFR-MDRD Greater than 90; Globulin 2.3 g/dL (2.4-3.5); Glucose 103 mg/dL (70-105); Potassium 3.7 mmol/L (3.5-5.1); Protein, Total 6.7 g/dL (6.0-8.3); Salicylate Less than 8.0 mg/dL (15.0-30.0); Sodium 140 mmol/L (136-145)
[2019-07-21 21:44] LABS: Bilirubin Negative (Negative); Blood, Urine Negative (Negative); Clarity Clear (Clear); Glucose, Urine (Dipstick) Normal (Negative); Leukocyte Negative Leu/uL (Negative); Nitrite Negative (Negative); Protein, Urine (Dipstick) 10 mg/dL (Neg-Trace); Urobilinogen Normal mg/dL (Less than 2)
== END ==
LOC: ERS 19:59
DX: R45.851 Suicidal ideations (principal); F31.9 Bipolar disorder, unspecified; F17.210 Nicotine dependence, cigarettes, uncomplicated; Z79.899 Other long term (current) drug therapy
CPT/HCPCS: 36415; 80053; 80306; 80307; 81003; 82550; 84443; 85025; 93005

== ENCOUNTER 2019-07-28 19:35 | Emergency (ER) | payer SELFPAY ==
[2019-07-28 20:13] LABS: #Eosinphils 0.2 thou/uL (0.0-0.7); #Lymphocytes 1.8 thou/uL (1.20-3.40); #Monocytes 0.4 thou/uL (0.11-0.59); #Neutrophils 7.3 thou/uL (1.40-6.50); %Basophils 0.2 % (0.0-1.0); %Eosinophils 2.2 % (0.0-10.0); %Lymphocytes 18.3 % (21.0-51.0); %Monocytes 4.4 % (0.0-10.0); %Neutrophils 74.9 % (42.0-75.0); Hemoglobin 14.8 g/dL (14.0-18.0); Mean Corpuscular HGB CONC 35.4 g/dL (32.0-36.0); Mean Corpuscular Hemoglobin 31.4 pg (27.0-31.0); Mean Corpuscular Volume 88.7 fL (78.0-98.0); Mean Platelet Volume 8.6 fL (7.4-10.4); Platelet Count 219 thou/uL (130-400); RBC Distribution Width 12.4 % (11.5-14.5); White Blood Cell (WBC) Count 9.7 thou/uL (4.8-10.8)
[2019-07-28 20:21] LABS: Bilirubin Negative (Negative); Blood, Urine Negative (Negative); Clarity Clear (Clear); Glucose, Urine (Dipstick) Normal (Negative); Leukocyte Negative Leu/uL (Negative); Nitrite Negative (Negative); Protein, Urine (Dipstick) 10 mg/dL (Neg-Trace); Urobilinogen Normal mg/dL (Less than 2)
[2019-07-28 20:32] LABS: Amphetamine Not Detected (NotDetected); Barbiturates Screen Not Detected (NotDetected); Benzodiazepine Screen Not Detected (NotDetected); Cocaine Metabolite Screen Not Detected (NotDetected); Medtox Control Line Valid? VALID (VALID); Medtox Reader # READER 4; Methadone Not Detected (NotDetected); Methamphetamine Not Detected (NotDetected); Opiate Screen Not Detected (NotDetected); Oxycodone Screen Not Detected (NotDetected); Phencyclidine (PCP) Not Detected (NotDetected); THC/Cannabinoid Screen Not Detected (NotDetected); Tricyclic Screen Not Detected (NotDetected)
[2019-07-28 20:35] LABS: ALT (SGPT) 90 U/L (8-55); AST (SGOT) 47 U/L (5-34); Albumin 4.9 g/dL (3.5-5.0); Alkaline Phosphatase 64 U/L (40-150); Anion Gap 17 mmol/L (10-20); BUN (Urea Nitrogen) 11 mg/dL (8.9-20.6); Bilirubin, Total 0.6 mg/dL (0.2-1.2); CK (CPK) 211 U/L (30-200); Calc. Creatinine Clearance 0 mL/min (70-130); Calcium 9.8 mg/dL (7.8-10.44); Carbon Dioxide 23 mmol/L (22-29); Chloride 102 mmol/L (98-107); Estimated GFR-MDRD Greater than 90; Globulin 2.7 g/dL (2.4-3.5); Glucose 148 mg/dL (70-105); Potassium 3.8 mmol/L (3.5-5.1); Protein, Total 7.6 g/dL (6.0-8.3); Sodium 138 mmol/L (136-145)
[2019-07-28 20:36] LABS: Acetaminophen Less than 6.0 mcg/mL (10.0-30.0); Alcohol 33 mg/dL (Less than 10); Salicylate Less than 8.0 mg/dL (15.0-30.0)
[2019-07-29] MEDS ORDERED: busPIRone HCl 10 MG TAB PO SCH (09:00)
[2019-07-29] MEDS ORDERED: Divalproex Sodium 250 MG (DR) TAB ONE ×2 (10:08→20:57)
[2019-07-29] MEDS ORDERED: OLANZapine 5 MG TAB ONE (20:57)
[2019-07-30] MEDS ORDERED: Divalproex Sodium 250 MG (DR) TAB PO SCH (10:00)
[2019-07-31] MEDS ORDERED: Divalproex Sodium 250 MG (DR) TAB PO SCH (08:30)
[2019-07-31] MEDS ORDERED: busPIRone HCl 10 MG TAB PO SCH ×2 (08:30→21:00)
[2019-08-01] MEDS ORDERED: Divalproex Sodium 250 MG (DR) TAB PO SCH (21:00)
[2019-08-02] MEDS ORDERED: busPIRone HCl 10 MG TAB PO SCH (07:30)
[2019-08-02] MEDS ORDERED: Divalproex Sodium 250 MG (DR) TAB PO SCH (07:30)
== END 2019-08-02 13:40 | disposition home or self-care (01) ==
LOC: ERS 19:35
DX: F32.9 Major depressive disorder, single episode, unspecified (principal); F19.10 Other psychoactive substance abuse, uncomplicated; F17.210 Nicotine dependence, cigarettes, uncomplicated; Z79.899 Other long term (current) drug therapy
CPT/HCPCS: 36415; 80053; 80164; 80306; 80307; 81003; 82550; 84443; 85025; 93005

== ENCOUNTER 2019-08-04 20:41 | Emergency (ER) | payer SELFPAY ==
[~2019-08-04 20:41] MED LIST changes: -Divalproex Sodium 250 MG (DR) TAB PO SCH; -OLANZapine 5 MG TAB PO SCH; -busPIRone HCl 10 MG TAB PO SCH; +hydrOXYzine 25 MG TAB ONE
[2019-08-04 21:32] LABS: #Basophils 0.1 thou/uL (0.0-0.2); #Eosinphils 0.3 thou/uL (0.0-0.7); #Lymphocytes 2.5 thou/uL (1.20-3.40); #Monocytes 0.6 thou/uL (0.11-0.59); #Neutrophils 8.6 thou/uL (1.40-6.50); %Basophils 0.7 % (0.0-1.0); %Eosinophils 2.3 % (0.0-10.0); %Lymphocytes 20.9 % (21.0-51.0); %Monocytes 4.6 % (0.0-10.0); %Neutrophils 71.6 % (42.0-75.0); Hemoglobin 14.2 g/dL (14.0-18.0); Mean Corpuscular HGB CONC 36.1 g/dL (32.0-36.0); Mean Corpuscular Hemoglobin 32.3 pg (27.0-31.0); Mean Corpuscular Volume 89.3 fL (78.0-98.0); Mean Platelet Volume 8.3 fL (7.4-10.4); Platelet Count 202 thou/uL (130-400); RBC Distribution Width 12.2 % (11.5-14.5); Red Blood Cell (RBC) Count 4.39 mill/uL (4.70-6.10)
[2019-08-04 21:54] LABS: Acetaminophen Less than 6.0 mcg/mL (10.0-30.0); Alcohol Less than 10 mg/dL (Less than 10); Salicylate Less than 8.0 mg/dL (15.0-30.0)
[2019-08-04 21:55] LABS: ALT (SGPT) 147 U/L (8-55); AST (SGOT) 61 U/L (5-34); Albumin 4.8 g/dL (3.5-5.0); Alkaline Phosphatase 68 U/L (40-150); Anion Gap 14 mmol/L (10-20); BUN (Urea Nitrogen) 17 mg/dL (8.9-20.6); Bilirubin, Total 0.9 mg/dL (0.2-1.2); CK (CPK) 874 U/L (30-200); Calc. Creatinine Clearance 0 mL/min (70-130); Calcium 9.3 mg/dL (7.8-10.44); Carbon Dioxide 25 mmol/L (22-29); Chloride 103 mmol/L (98-107); Estimated GFR-MDRD Greater than 90; Globulin 2.7 g/dL (2.4-3.5); Glucose 89 mg/dL (70-105); Potassium 3.9 mmol/L (3.5-5.1); Protein, Total 7.5 g/dL (6.0-8.3); Sodium 138 mmol/L (136-145)
[2019-08-04 21:56] LABS: Amphetamine Not Detected (NotDetected); Barbiturates Screen Not Detected (NotDetected); Benzodiazepine Screen Not Detected (NotDetected); Cocaine Metabolite Screen Not Detected (NotDetected); Medtox Control Line Valid? VALID (VALID); Medtox Reader # READER 4; Methadone Not Detected (NotDetected); Methamphetamine Not Detected (NotDetected); Opiate Screen Not Detected (NotDetected); Oxycodone Screen Not Detected (NotDetected); Phencyclidine (PCP) Not Detected (NotDetected); THC/Cannabinoid Screen Detected (NotDetected); Tricyclic Screen Not Detected (NotDetected)
[2019-08-05] MEDS ORDERED: Divalproex Sodium 250 MG (DR) TAB PO SCH (09:00)
[2019-08-05] MEDS ORDERED: busPIRone HCl 10 MG TAB PO SCH ×2 (09:00)
[2019-08-05] MEDS ORDERED: Divalproex Sodium 250 MG (DR) TAB ONE (09:54)
[2019-08-05] MEDS ORDERED: OLANZapine 5 MG TAB PO SCH (21:00)
== END 2019-08-09 11:47 | disposition home or self-care (01) ==
LOC: ERS 20:41
DX: F25.9 Schizoaffective disorder, unspecified (principal); F12.10 Cannabis abuse, uncomplicated; F31.9 Bipolar disorder, unspecified; F17.210 Nicotine dependence, cigarettes, uncomplicated; Z79.899 Other long term (current) drug therapy
CPT/HCPCS: 36415; 80053; 80306; 80307; 82550; 84443; 85025; 99285

== ENCOUNTER 2019-09-27 19:32 | Emergency (ER) | payer SELFPAY ==
[2019-09-27 20:10] LABS: #Eosinphils 0.1 thou/uL (0.0-0.7); #Lymphocytes 2.2 thou/uL (1.20-3.40); #Monocytes 0.4 thou/uL (0.11-0.59); #Neutrophils 9.3 thou/uL (1.40-6.50); %Basophils 0.4 % (0.0-1.0); %Monocytes 3.3 % (0.0-10.0); %Neutrophils 77.4 % (42.0-75.0); Mean Corpuscular HGB CONC 34.4 g/dL (32.0-36.0); Mean Corpuscular Hemoglobin 30.7 pg (27.0-31.0); Mean Corpuscular Volume 89.2 fL (78.0-98.0); Mean Platelet Volume 8.6 fL (7.4-10.4); Platelet Count 194 thou/uL (130-400); RBC Distribution Width 11.4 % (11.5-14.5); Red Blood Cell (RBC) Count 4.88 mill/uL (4.70-6.10)
[2019-09-27 20:19] LABS: Bilirubin Negative (Negative); Blood, Urine Negative (Negative); Clarity Clear (Clear); Glucose, Urine (Dipstick) Normal (Negative); Leukocyte Negative Leu/uL (Negative); Nitrite Negative (Negative); Protein, Urine (Dipstick) Negative (Neg-Trace); Urobilinogen Normal mg/dL (Less than 2)
[2019-09-27 20:31] LABS: Amphetamine Not Detected (NotDetected); Barbiturates Screen Not Detected (NotDetected); Benzodiazepine Screen Not Detected (NotDetected); Cocaine Metabolite Screen Not Detected (NotDetected); Medtox Control Line Valid? VALID (VALID); Medtox Reader # READER 4; Methadone Not Detected (NotDetected); Methamphetamine Not Detected (NotDetected); Opiate Screen Not Detected (NotDetected); Oxycodone Screen Not Detected (NotDetected); Phencyclidine (PCP) Not Detected (NotDetected); THC/Cannabinoid Screen Detected (NotDetected); Tricyclic Screen Not Detected (NotDetected)
[2019-09-27 20:31] LABS: Acetaminophen Less than 6.0 mcg/mL (10.0-30.0); Alcohol Less than 10 mg/dL (Less than 10); Salicylate Less than 8.0 mg/dL (15.0-30.0)
[2019-09-27 20:37] LABS: ALT (SGPT) 17 U/L (8-55); AST (SGOT) 17 U/L (5-34); Alkaline Phosphatase 71 U/L (40-110); Anion Gap 13 mmol/L (10-20); BUN (Urea Nitrogen) 17 mg/dL (8.9-20.6); Bilirubin, Total 0.8 mg/dL (0.2-1.2); Calc. Creatinine Clearance 0 mL/min (70-130); Calcium 9.3 mg/dL (7.8-10.44); Carbon Dioxide 28 mmol/L (22-29); Chloride 103 mmol/L (98-107); Estimated GFR-MDRD Greater than 90; Globulin 2.6 g/dL (2.4-3.5); Glucose 87 mg/dL (70-105); Potassium 3.6 mmol/L (3.5-5.1); Protein, Total 7.6 g/dL (6.0-8.3); Sodium 140 mmol/L (136-145)
[2019-09-27] MEDS ORDERED: OLANZapine 5 MG TAB PO SCH (21:30)
[2019-09-27] MEDS ORDERED: busPIRone HCl 10 MG TAB PO SCH (21:30)
[2019-09-28] MEDS ORDERED: busPIRone HCl 10 MG TAB PO SCH (08:00)
[2019-09-28] MEDS ORDERED: OLANZapine 5 MG TAB PO SCH (21:00)
[2019-09-28] MEDS ORDERED: Ziprasidone 20 MG CAP ONE (21:44)
[2019-09-29] MEDS ORDERED: guaiFENesin ER 600 MG TAB PO SCH (09:45)
[2019-09-29] MEDS ORDERED: traZODone HCl 50 MG TAB PO PRN (21:34)
[2019-09-29] MEDS ORDERED: Nicotine 14 MG PATCH TOP SCH (22:00)
== END 2019-10-01 16:05 | disposition home or self-care (01) ==
LOC: ERS 19:32
DX: F32.9 Major depressive disorder, single episode, unspecified (principal); F17.210 Nicotine dependence, cigarettes, uncomplicated
CPT/HCPCS: 36415; 80053; 80306; 80307; 81003; 84443; 85025; 99285

== ENCOUNTER 2019-10-03 21:27 | Emergency (ER) | payer SELFPAY ==
[2019-10-03 22:10] LABS: #Basophils 0.1 thou/uL (0.0-0.2); #Eosinphils 0.2 thou/uL (0.0-0.7); #Monocytes 0.8 thou/uL (0.11-0.59); %Basophils 0.6 % (0.0-1.0); %Eosinophils 2.2 % (0.0-10.0); %Lymphocytes 26.8 % (21.0-51.0); %Neutrophils 63.4 % (42.0-75.0); Hemoglobin 15.6 g/dL (14.0-18.0); Mean Corpuscular HGB CONC 34.5 g/dL (32.0-36.0); Mean Corpuscular Volume 89.9 fL (78.0-98.0); Mean Platelet Volume 8.8 fL (7.4-10.4); Platelet Count 218 thou/uL (130-400); RBC Distribution Width 11.5 % (11.5-14.5); Red Blood Cell (RBC) Count 5.04 mill/uL (4.70-6.10); White Blood Cell (WBC) Count 11.1 thou/uL (4.8-10.8)
[2019-10-03 22:35] LABS: ALT (SGPT) 18 U/L (8-55); AST (SGOT) 16 U/L (5-34); Alkaline Phosphatase 75 U/L (40-110); Anion Gap 16 mmol/L (10-20); BUN (Urea Nitrogen) 12 mg/dL (8.9-20.6); Bilirubin, Total 0.7 mg/dL (0.2-1.2); CK (CPK) 262 U/L (30-200); Calc. Creatinine Clearance 0 mL/min (70-130); Calcium 9.4 mg/dL (7.8-10.44); Carbon Dioxide 23 mmol/L (22-29); Chloride 104 mmol/L (98-107); Estimated GFR-MDRD Greater than 90; Globulin 2.6 g/dL (2.4-3.5); Glucose 93 mg/dL (70-105); Potassium 3.7 mmol/L (3.5-5.1); Protein, Total 7.6 g/dL (6.0-8.3); Sodium 139 mmol/L (136-145)
[2019-10-03 22:41] LABS: Alcohol Less than 10 mg/dL (Less than 10)
[2019-10-03 22:44] LABS: Acetaminophen Less than 6.0 mcg/mL (10.0-30.0); Salicylate Less than 8.0 mg/dL (15.0-30.0)
[2019-10-03 22:48] LABS: Bilirubin Negative (Negative); Blood, Urine Negative (Negative); Clarity Clear (Clear); Glucose, Urine (Dipstick) Normal (Negative); Leukocyte Negative Leu/uL (Negative); Nitrite Negative (Negative); Protein, Urine (Dipstick) Negative (Neg-Trace); Urobilinogen Normal mg/dL (Less than 2)
[2019-10-03 22:57] LABS: Cocaine Metabolite Screen Not Detected (NotDetected); Medtox Reader # READER 4; Phencyclidine (PCP) Not Detected (NotDetected); THC/Cannabinoid Screen Detected (NotDetected)
[2019-10-03 22:58] LABS: Amphetamine Not Detected (NotDetected); Barbiturates Screen Not Detected (NotDetected); Benzodiazepine Screen Not Detected (NotDetected); Medtox Control Line Valid? VALID (VALID); Methadone Not Detected (NotDetected); Methamphetamine Not Detected (NotDetected); Opiate Screen Not Detected (NotDetected); Oxycodone Screen Not Detected (NotDetected); Tricyclic Screen Not Detected (NotDetected)
[2019-10-04] MEDS ORDERED: busPIRone HCl 10 MG TAB PO SCH (09:00)
[2019-10-04] MEDS ORDERED: Divalproex Sodium 250 MG (DR) TAB ONE ×2 (09:45→20:22)
[2019-10-04] MEDS ORDERED: OLANZapine 5 MG TAB ONE (20:23)
[2019-10-05] MEDS ORDERED: OLANZapine 5 MG TAB PO SCH (20:15)
[2019-10-05] MEDS ORDERED: Divalproex Sodium 250 MG (DR) TAB PO SCH (20:15)
[2019-10-07] MEDS ORDERED: OLANZapine 5 MG TAB PO SCH (20:15)
[2019-10-07] MEDS ORDERED: hydrOXYzine Pamoate 25 mg Capsule PO SCH (20:15)
== END 2019-10-10 14:26 | disposition home or self-care (01) ==
LOC: ERS 21:27
DX: F33.9 Major depressive disorder, recurrent, unspecified (principal); F17.210 Nicotine dependence, cigarettes, uncomplicated; Z79.899 Other long term (current) drug therapy
CPT/HCPCS: 36415; 80053; 80306; 80307; 81003; 82550; 84443; 85025; 99284

== ENCOUNTER 2019-10-12 20:50 | Emergency (ER) | payer SELFPAY ==
[~2019-10-12 20:50] MED LIST changes: +Acetaminophen 325 MG TAB ONE; +Ketamine 50 MG/ML (10ML VIAL) ONE; +Lorazepam 2 MG/ML VIAL ONE; +OLANZapine 5 MG TAB ONE; +Rocuronium Bromide 10 MG/ML (10ML VIAL) ONE; +hydrALAZINE 25 MG TAB ONE; +hydrOXYzine Pamoate 25 mg Capsule ONE
[2019-10-12 21:31] LABS: Bilirubin Negative (Negative); Blood, Urine Negative (Negative); Clarity Clear (Clear); Glucose, Urine (Dipstick) Normal (Negative); Leukocyte Negative Leu/uL (Negative); Nitrite Negative (Negative); Protein, Urine (Dipstick) Negative (Neg-Trace)
[2019-10-12 21:35] LABS: #Eosinphils 0.2 thou/uL (0.0-0.7); #Lymphocytes 2.4 thou/uL (1.20-3.40); #Monocytes 0.4 thou/uL (0.11-0.59); #Neutrophils 7.5 thou/uL (1.40-6.50); %Basophils 0.3 % (0.0-1.0); %Eosinophils 2.1 % (0.0-10.0); %Lymphocytes 22.3 % (21.0-51.0); %Neutrophils 71.3 % (42.0-75.0); Mean Corpuscular HGB CONC 35.3 g/dL (32.0-36.0); Mean Corpuscular Hemoglobin 31.1 pg (27.0-31.0); Mean Corpuscular Volume 88.2 fL (78.0-98.0); Mean Platelet Volume 8.4 fL (7.4-10.4); Platelet Count 191 thou/uL (130-400); RBC Distribution Width 11.2 % (11.5-14.5); Red Blood Cell (RBC) Count 4.81 mill/uL (4.70-6.10); White Blood Cell (WBC) Count 10.5 thou/uL (4.8-10.8)
[2019-10-12 21:50] LABS: Amphetamine Not Detected (NotDetected); Barbiturates Screen Not Detected (NotDetected); Benzodiazepine Screen Not Detected (NotDetected); Cocaine Metabolite Screen Detected (NotDetected); Medtox Control Line Valid? VALID (VALID); Medtox Reader # READER 4; Methadone Not Detected (NotDetected); Methamphetamine Not Detected (NotDetected); Opiate Screen Not Detected (NotDetected); Oxycodone Screen Not Detected (NotDetected); Phencyclidine (PCP) Not Detected (NotDetected); THC/Cannabinoid Screen Detected (NotDetected); Tricyclic Screen Not Detected (NotDetected)
[2019-10-12 21:55] LABS: Acetaminophen Less than 6.0 mcg/mL (10.0-30.0); Alcohol Less than 10 mg/dL (Less than 10); Salicylate Less than 8.0 mg/dL (15.0-30.0)
[2019-10-12 21:56] LABS: ALT (SGPT) 23 U/L (8-55); AST (SGOT) 22 U/L (5-34); Albumin 4.5 g/dL (3.5-5.0); Alkaline Phosphatase 66 U/L (40-110); Anion Gap 14 mmol/L (10-20); BUN (Urea Nitrogen) 15 mg/dL (8.9-20.6); Bilirubin, Total 0.9 mg/dL (0.2-1.2); CK (CPK) 453 U/L (30-200); Calc. Creatinine Clearance 0 mL/min (70-130); Calcium 8.8 mg/dL (7.8-10.44); Carbon Dioxide 23 mmol/L (22-29); Chloride 107 mmol/L (98-107); Estimated GFR-MDRD Greater than 90; Globulin 2.5 g/dL (2.4-3.5); Glucose 111 mg/dL (70-105); Potassium 3.8 mmol/L (3.5-5.1); Sodium 140 mmol/L (136-145)
[2019-10-13] MEDS ORDERED: busPIRone HCl 10 MG TAB PO SCH ×2 (08:30→20:00)
[2019-10-13] MEDS ORDERED: Divalproex Sodium 250 MG (DR) TAB PO SCH ×2 (08:30→20:00)
[2019-10-13] MEDS ORDERED: OLANZapine 5 MG TAB PO SCH (20:00)
[2019-10-14] MEDS ORDERED: busPIRone HCl 10 MG TAB PO SCH ×2 (08:00→22:30)
[2019-10-14] MEDS ORDERED: OLANZapine 5 MG TAB PO SCH (22:30)
[2019-10-15] MEDS ORDERED: busPIRone HCl 10 MG TAB PO SCH ×2 (06:30→20:00)
[2019-10-16] MEDS ORDERED: busPIRone HCl 10 MG TAB PO SCH ×2 (07:45→20:30)
[2019-10-16] MEDS ORDERED: Sulfameth/Trimethoprim DS 800-160mg TAB PO SCH ×2 (15:45→21:00)
[2019-10-16] MEDS ORDERED: OLANZapine 5 MG TAB PO SCH (20:30)
[2019-10-17] MEDS ORDERED: busPIRone HCl 10 MG TAB PO SCH (09:00)
== END 2019-10-17 19:16 | disposition home or self-care (01) ==
LOC: ERS 20:50
DX: F31.9 Bipolar disorder, unspecified (principal); F17.210 Nicotine dependence, cigarettes, uncomplicated; Z79.899 Other long term (current) drug therapy
CPT/HCPCS: 10060; 36415; 80053; 80306; 80307; 81003; 82550; 84443; 85025; J2060; Q0177

== ENCOUNTER 2019-10-18 19:34 | Emergency (ER) | payer SELFPAY ==
[~2019-10-18 19:34] MED LIST changes: -Acetaminophen 325 MG TAB ONE; -Ketamine 50 MG/ML (10ML VIAL) ONE; +Lidocaine 1% (PF) 30 ML VIAL ONE; -Lorazepam 2 MG/ML VIAL ONE; -Rocuronium Bromide 10 MG/ML (10ML VIAL) ONE; -hydrALAZINE 25 MG TAB ONE; -hydrOXYzine 25 MG TAB ONE; -hydrOXYzine Pamoate 25 mg Capsule ONE
[2019-10-18] MEDS ORDERED: OLANZapine 5 MG TAB PO SCH (21:00)
[2019-10-19] MEDS ORDERED: Divalproex Sodium 250 MG (DR) TAB ONE (17:19)
[2019-10-19] MEDS ORDERED: busPIRone HCl 10 MG TAB PO SCH (17:45)
[2019-10-19] MEDS ORDERED: OLANZapine 5 MG TAB ONE (17:58)
[2019-10-19] MEDS ORDERED: diphenhydrAMINE 25 MG CAP ONE (21:42)
== END 2019-10-20 02:37 ==
LOC: ERS 19:34
DX: F31.9 Bipolar disorder, unspecified (principal); F17.210 Nicotine dependence, cigarettes, uncomplicated; Z79.899 Other long term (current) drug therapy
CPT/HCPCS: 99285; J2001; Q0163

== ENCOUNTER 2019-12-10 19:14 | Emergency (ER) | payer SELFPAY ==
[2019-12-10 19:52] LABS: #Basophils 0.1 thou/uL (0.0-0.2); #Eosinphils 0.2 thou/uL (0.0-0.7); #Lymphocytes 2.9 thou/uL (1.20-3.40); #Monocytes 0.5 thou/uL (0.11-0.59); #Neutrophils 6.4 thou/uL (1.40-6.50); %Basophils 0.8 % (0.0-1.0); %Eosinophils 1.5 % (0.0-10.0); %Lymphocytes 28.8 % (21.0-51.0); %Monocytes 5.3 % (0.0-10.0); %Neutrophils 63.6 % (42.0-75.0); Hemoglobin 15.6 g/dL (14.0-18.0); Mean Corpuscular HGB CONC 34.4 g/dL (32.0-36.0); Mean Corpuscular Hemoglobin 30.2 pg (27.0-31.0); Mean Corpuscular Volume 87.9 fL (78.0-98.0); Mean Platelet Volume 8.4 fL (7.4-10.4); Platelet Count 220 thou/uL (130-400); RBC Distribution Width 11.8 % (11.5-14.5); Red Blood Cell (RBC) Count 5.16 mill/uL (4.70-6.10)
[2019-12-10 20:06] LABS: Bacteria/HPF None Seen HPF (None Seen); Bilirubin Negative (Negative); Blood, Urine Negative (Negative); Clarity Clear (Clear); Glucose, Urine (Dipstick) Normal (Negative); Leukocyte Negative Leu/uL (Negative); Nitrite Negative (Negative); Protein, Urine (Dipstick) 30 mg/dL (Neg-Trace); RBC/HPF 0-3 HPF (0-3); Squamous Epithelial None Seen HPF (0-3); Urobilinogen 3 mg/dL (Less than 2); WBC/HPF 0-3 HPF (0-3)
[2019-12-10 20:13] LABS: ALT (SGPT) 15 U/L (8-55); AST (SGOT) 16 U/L (5-34); Albumin 4.7 g/dL (3.5-5.0); Alkaline Phosphatase 65 U/L (40-110); Anion Gap 15 mmol/L (10-20); BUN (Urea Nitrogen) 13 mg/dL (8.9-20.6); Bilirubin, Total 0.9 mg/dL (0.2-1.2); CK (CPK) 372 U/L (30-200); Calc. Creatinine Clearance 0 mL/min (70-130); Calcium 9.3 mg/dL (7.8-10.44); Carbon Dioxide 26 mmol/L (22-29); Chloride 104 mmol/L (98-107); Estimated GFR-MDRD Greater than 90; Globulin 2.5 g/dL (2.4-3.5); Glucose 128 mg/dL (70-105); Potassium 3.8 mmol/L (3.5-5.1); Protein, Total 7.2 g/dL (6.0-8.3); Sodium 141 mmol/L (136-145)
[2019-12-10 20:14] LABS: Acetaminophen Less than 6.0 mcg/mL (10.0-30.0); Alcohol Less than 10 mg/dL (Less than 10); Salicylate Less than 8.0 mg/dL (15.0-30.0)
[2019-12-10 20:15] LABS: Amphetamine Not Detected (NotDetected); Barbiturates Screen Not Detected (NotDetected); Benzodiazepine Screen Not Detected (NotDetected); Cocaine Metabolite Screen Not Detected (NotDetected); Medtox Control Line Valid? VALID (VALID); Medtox Reader # READER 1; Methadone Not Detected (NotDetected); Methamphetamine Not Detected (NotDetected); Opiate Screen Not Detected (NotDetected); Oxycodone Screen Not Detected (NotDetected); Phencyclidine (PCP) Not Detected (NotDetected); THC/Cannabinoid Screen Detected (NotDetected); Tricyclic Screen Not Detected (NotDetected)
[2019-12-11] MEDS ORDERED: Escitalopram Oxalate 10 mg Tablet PO SCH (09:00)
[2019-12-11] MEDS ORDERED: hydrOXYzine 25 MG TAB ONE ×2 (10:00→10:03)
[2019-12-11] MEDS ORDERED: Divalproex Sodium 250 MG (DR) TAB ONE ×2 (10:00→22:09)
[2019-12-12] MEDS ORDERED: hydrOXYzine Pamoate 25 mg Capsule PO SCH (09:00)
[2019-12-12] MEDS ORDERED: Divalproex Sodium 250 MG (DR) TAB ONE (09:11)
[2019-12-13] MEDS ORDERED: Divalproex Sodium 250 MG (DR) TAB ONE ×3 (07:59→21:33)
[2019-12-14] MEDS ORDERED: hydrOXYzine Pamoate 25 mg Capsule ONE (10:01)
[2019-12-14] MEDS ORDERED: Divalproex Sodium 250 MG (DR) TAB ONE ×2 (10:01→19:16)
== END 2019-12-15 08:59 ==
LOC: ERS 19:14
DX: R45.851 Suicidal ideations (principal); F17.210 Nicotine dependence, cigarettes, uncomplicated; F31.9 Bipolar disorder, unspecified; Z79.01 Long term (current) use of anticoagulants; Z79.899 Other long term (current) drug therapy
CPT/HCPCS: 36415; 80053; 80306; 80307; 81003; 81015; 82550; 84443; 85025; 93005

== ENCOUNTER 2019-12-19 18:18 | Emergency (ER) | payer SELFPAY | END 2019-12-19 18:50 | disposition home or self-care (01) | LOC: ERS 18:18 | DX: Z76.5 Malingerer [conscious simulation] (principal); F31.9 Bipolar disorder, unspecified; F17.210 Nicotine dependence, cigarettes, uncomplicated; Z79.01 Long term (current) use of anticoagulants; Z79.899 Other long term (current) drug therapy | CPT/HCPCS: 99281 ==

== ENCOUNTER 2019-12-28 00:46 | Emergency (ER) | payer SELFPAY | END 2019-12-28 03:34 | disposition home or self-care (01) | LOC: ERS 00:46 | DX: F31.9 Bipolar disorder, unspecified (principal); F17.210 Nicotine dependence, cigarettes, uncomplicated; Z76.0 Encounter for issue of repeat prescription; Z79.899 Other long term (current) drug therapy | CPT/HCPCS: 99281 ==

== ENCOUNTER 2019-12-28 20:18 | Emergency (ER) | payer SELFPAY ==
[2019-12-28] MEDS ORDERED: Promethazine HCl 25 MG/ML VIAL ONE (20:56)
[2019-12-28] MEDS ORDERED: Ketorolac Tromethamine 30 MG/ML VIAL ONE (20:56)
[2019-12-28 20:57] LABS: #Eosinphils 0.1 thou/uL (0.0-0.7); #Lymphocytes 1.8 thou/uL (1.20-3.40); #Monocytes 0.4 thou/uL (0.11-0.59); #Neutrophils 11.9 thou/uL (1.40-6.50); %Basophils 0.3 % (0.0-1.0); %Eosinophils 0.6 % (0.0-10.0); %Lymphocytes 12.4 % (21.0-51.0); %Neutrophils 83.7 % (42.0-75.0); Hemoglobin 15.6 g/dL (14.0-18.0); Mean Corpuscular HGB CONC 34.3 g/dL (32.0-36.0); Mean Corpuscular Hemoglobin 30.4 pg (27.0-31.0); Mean Corpuscular Volume 88.7 fL (78.0-98.0); Mean Platelet Volume 8.4 fL (7.4-10.4); Platelet Count 227 thou/uL (130-400); Red Blood Cell (RBC) Count 5.13 mill/uL (4.70-6.10); White Blood Cell (WBC) Count 14.2 thou/uL (4.8-10.8)
[2019-12-28 21:22] LABS: ALT (SGPT) 23 U/L (8-55); AST (SGOT) 21 U/L (5-34); Acetaminophen Less than 6.0 mcg/mL (10.0-30.0); Albumin 5.1 g/dL (3.5-5.0); Alcohol Less than 10 mg/dL (Less than 10); Alkaline Phosphatase 69 U/L (40-110); Anion Gap 16 mmol/L (10-20); BUN (Urea Nitrogen) 16 mg/dL (8.9-20.6); Bilirubin, Total 1.4 mg/dL (0.2-1.2); Calc. Creatinine Clearance 0 mL/min (70-130); Calcium 10.2 mg/dL (7.8-10.44); Carbon Dioxide 27 mmol/L (22-29); Chloride 103 mmol/L (98-107); Estimated GFR-MDRD Greater than 90; Globulin 2.8 g/dL (2.4-3.5); Glucose 120 mg/dL (70-105); Protein, Total 7.9 g/dL (6.0-8.3); Salicylate Less than 8.0 mg/dL (15.0-30.0); Sodium 142 mmol/L (136-145)
[2019-12-28 21:26] LABS: Bacteria/HPF None Seen HPF (None Seen); Bilirubin Negative (Negative); Blood, Urine Negative (Negative); Clarity Clear (Clear); Glucose, Urine (Dipstick) Normal (Negative); Leukocyte Negative Leu/uL (Negative); Mucous/LPF 1+ LPF (<2+); Nitrite Negative (Negative); Protein, Urine (Dipstick) 100 mg/dL (Neg-Trace); RBC/HPF 0-3 HPF (0-3); Squamous Epithelial 0-3 HPF (0-3); Urobilinogen 3 mg/dL (Less than 2); WBC/HPF 0-3 HPF (0-3)
[2019-12-28 21:34] LABS: Amphetamine Not Detected (NotDetected); Barbiturates Screen Not Detected (NotDetected); Benzodiazepine Screen Detected (NotDetected); Cocaine Metabolite Screen Not Detected (NotDetected); Medtox Control Line Valid? VALID (VALID); Medtox Reader # READER 4; Methadone Not Detected (NotDetected); Methamphetamine Not Detected (NotDetected); Opiate Screen Not Detected (NotDetected); Oxycodone Screen Not Detected (NotDetected); Phencyclidine (PCP) Not Detected (NotDetected); THC/Cannabinoid Screen Not Detected (NotDetected); Tricyclic Screen Not Detected (NotDetected)
[2019-12-28] MEDS ORDERED: hydrOXYzine Pamoate 25 mg Capsule PO PRN (22:28)
[2019-12-28] MEDS ORDERED: hydrOXYzine Pamoate 25 mg Capsule PO SCH (22:30)
[2019-12-28] MEDS ORDERED: Escitalopram Oxalate 10 mg Tablet PO SCH (22:30)
[2019-12-29] MEDS ORDERED: Escitalopram Oxalate 10 mg Tablet PO SCH (09:00)
== END 2019-12-31 08:25 ==
LOC: ERS 20:18
DX: R45.851 Suicidal ideations (principal); F13.10 Sedative, hypnotic or anxiolytic abuse, uncomplicated; R11.2 Nausea with vomiting, unspecified; R10.9 Unspecified abdominal pain; F17.210 Nicotine dependence, cigarettes, uncomplicated; Z79.899 Other long term (current) drug therapy
CPT/HCPCS: 36416; 80053; 80306; 80307; 81003; 81015; 85025; 96372; 99285; J1885; J2550

== ENCOUNTER 2020-01-06 15:57 | Emergency (ER) | payer SELFPAY ==
[2020-01-06 17:25] LABS: #Basophils 0.1 thou/uL (0.0-0.2); #Eosinphils 0.2 thou/uL (0.0-0.7); #Lymphocytes 3.5 thou/uL (1.20-3.40); #Monocytes 0.6 thou/uL (0.11-0.59); #Neutrophils 6.6 thou/uL (1.40-6.50); %Basophils 0.8 % (0.0-1.0); %Eosinophils 1.7 % (0.0-10.0); %Lymphocytes 31.9 % (21.0-51.0); %Monocytes 5.7 % (0.0-10.0); Hemoglobin 15.8 g/dL (14.0-18.0); Mean Corpuscular HGB CONC 34.7 g/dL (32.0-36.0); Mean Corpuscular Hemoglobin 30.4 pg (27.0-31.0); Mean Corpuscular Volume 87.7 fL (78.0-98.0); Mean Platelet Volume 8.7 fL (7.4-10.4); Platelet Count 256 thou/uL (130-400); RBC Distribution Width 11.7 % (11.5-14.5); Red Blood Cell (RBC) Count 5.18 mill/uL (4.70-6.10)
[2020-01-06 17:36] LABS: Bilirubin Negative (Negative); Blood, Urine Negative (Negative); Clarity Clear (Clear); Glucose, Urine (Dipstick) Normal (Negative); Leukocyte Negative Leu/uL (Negative); Nitrite Negative (Negative); Protein, Urine (Dipstick) Negative (Neg-Trace)
[2020-01-06 17:46] LABS: ALT (SGPT) 20 U/L (8-55); AST (SGOT) 28 U/L (5-34); Albumin 5.1 g/dL (3.5-5.0); Alkaline Phosphatase 66 U/L (40-110); Anion Gap 14 mmol/L (10-20); BUN (Urea Nitrogen) 13 mg/dL (8.9-20.6); Bilirubin, Total 2.1 mg/dL (0.2-1.2); CK (CPK) 671 U/L (30-200); Calc. Creatinine Clearance 0 mL/min (70-130); Calcium 9.9 mg/dL (7.8-10.44); Carbon Dioxide 26 mmol/L (22-29); Chloride 103 mmol/L (98-107); Estimated GFR-MDRD Greater than 90; Globulin 2.9 g/dL (2.4-3.5); Glucose 84 mg/dL (70-105); Potassium 3.8 mmol/L (3.5-5.1); Sodium 139 mmol/L (136-145)
[2020-01-06 17:46] LABS: Medtox Reader # READER 1; THC/Cannabinoid Screen Detected (NotDetected)
[2020-01-06 17:47] LABS: Amphetamine Detected (NotDetected); Barbiturates Screen Not Detected (NotDetected); Benzodiazepine Screen Not Detected (NotDetected); Cocaine Metabolite Screen Not Detected (NotDetected); Medtox Control Line Valid? VALID (VALID); Methadone Not Detected (NotDetected); Methamphetamine Detected (NotDetected); Opiate Screen Not Detected (NotDetected); Oxycodone Screen Not Detected (NotDetected); Phencyclidine (PCP) Not Detected (NotDetected); Tricyclic Screen Not Detected (NotDetected)
[2020-01-06 17:59] LABS: Acetaminophen Less than 6.0 mcg/mL (10.0-30.0); Alcohol Less than 10 mg/dL (Less than 10); Salicylate Less than 8.0 mg/dL (15.0-30.0)
[2020-01-06] MEDS ORDERED: Divalproex Sodium 250 MG (DR) TAB ONE (19:49)
[2020-01-07] MEDS ORDERED: Escitalopram Oxalate 10 mg Tablet PO SCH (09:00)
[2020-01-07] MEDS ORDERED: Divalproex Sodium 250 MG (DR) TAB ONE (20:26)
[2020-01-08] MEDS ORDERED: hydrOXYzine Pamoate 25 mg Capsule PO PRN (21:48)
[2020-01-08] MEDS ORDERED: Acetaminophen 325 MG TAB PO PRN (21:50)
== END 2020-01-11 10:38 | disposition home or self-care (01) ==
LOC: ERS 15:57
DX: F31.9 Bipolar disorder, unspecified (principal); F15.10 Other stimulant abuse, uncomplicated; F17.210 Nicotine dependence, cigarettes, uncomplicated; Z79.01 Long term (current) use of anticoagulants; Z79.899 Other long term (current) drug therapy
CPT/HCPCS: 36415; 80053; 80306; 80307; 81003; 82550; 84443; 85025; 99285; Q0177

== ENCOUNTER 2020-02-04 03:02 | Emergency (ER) | payer SELFPAY | END 2020-02-04 03:18 | disposition home or self-care (01) | LOC: ERS 03:02 | DX: J06.9 Acute upper respiratory infection, unspecified (principal); F31.9 Bipolar disorder, unspecified; F17.210 Nicotine dependence, cigarettes, uncomplicated; Z79.899 Other long term (current) drug therapy | CPT/HCPCS: 99281 ==

== ENCOUNTER 2020-02-07 06:54 | Emergency (ER) | payer SELFPAY ==
[2020-02-07] MEDS ORDERED: Ibuprofen 200 MG TAB ONE (07:27)
--- NOTE | 2020-02-07 07:57 | RAD ---
XR Chest Pa Lat STANDARD HISTORY: Chest pain COMPARISON: 04/01/2018 FINDINGS: The heart size is normal. The lungs are well expanded without focal areas of consolidation, pneumothorax or pleural effusions. IMPRESSION: No radiographic evidence of acute cardiopulmonary process.
== END 2020-02-07 08:11 | disposition home or self-care (01) ==
LOC: ERS 06:54
DX: R07.89 Other chest pain (principal); F31.9 Bipolar disorder, unspecified; F17.210 Nicotine dependence, cigarettes, uncomplicated
CPT/HCPCS: 71046

== ENCOUNTER 2020-02-13 03:55 | Emergency (ER) | payer SELFPAY ==
[2020-02-13 04:30] LABS: #Basophils 0.1 thou/uL (0.0-0.2); #Eosinphils 0.3 thou/uL (0.0-0.7); #Monocytes 0.4 thou/uL (0.11-0.59); #Neutrophils 5.2 thou/uL (1.40-6.50); %Basophils 0.7 % (0.0-1.0); %Eosinophils 3.3 % (0.0-10.0); %Lymphocytes 33.8 % (21.0-51.0); %Monocytes 4.5 % (0.0-10.0); %Neutrophils 57.8 % (42.0-75.0); Hemoglobin 15.9 g/dL (14.0-18.0); Mean Corpuscular HGB CONC 34.7 g/dL (32.0-36.0); Mean Corpuscular Hemoglobin 30.6 pg (27.0-31.0); Mean Corpuscular Volume 88.2 fL (78.0-98.0); Mean Platelet Volume 8.8 fL (7.4-10.4); Platelet Count 247 thou/uL (130-400); RBC Distribution Width 11.9 % (11.5-14.5); Red Blood Cell (RBC) Count 5.18 mill/uL (4.70-6.10); White Blood Cell (WBC) Count 8.9 thou/uL (4.8-10.8)
[2020-02-13 04:48] LABS: ALT (SGPT) 16 U/L (8-55); AST (SGOT) 19 U/L (5-34); Albumin 5.1 g/dL (3.5-5.0); Alkaline Phosphatase 65 U/L (40-110); Anion Gap 16 mmol/L (10-20); BUN (Urea Nitrogen) 6 mg/dL (8.9-20.6); Bilirubin, Total 0.9 mg/dL (0.2-1.2); CK (CPK) 372 U/L (30-200); Calc. Creatinine Clearance 0 mL/min (70-130); Calcium 9.7 mg/dL (7.8-10.44); Carbon Dioxide 26 mmol/L (22-29); Chloride 107 mmol/L (98-107); Estimated GFR-MDRD Greater than 90; Globulin 2.7 g/dL (2.4-3.5); Glucose 86 mg/dL (70-105); Potassium 3.9 mmol/L (3.5-5.1); Protein, Total 7.8 g/dL (6.0-8.3); Sodium 145 mmol/L (136-145)
[2020-02-13 04:49] LABS: Acetaminophen Less than 6.0 mcg/mL (10.0-30.0); Alcohol 53 mg/dL (Less than 10); Salicylate Less than 8.0 mg/dL (15.0-30.0)
[2020-02-13 04:57] LABS: Bilirubin Negative (Negative); Blood, Urine Negative (Negative); Clarity Clear (Clear); Glucose, Urine (Dipstick) Normal (Negative); Leukocyte Negative Leu/uL (Negative); Nitrite Negative (Negative); Protein, Urine (Dipstick) 10 mg/dL (Neg-Trace)
[2020-02-13 05:13] LABS: Amphetamine Not Detected (NotDetected); Barbiturates Screen Not Detected (NotDetected); Benzodiazepine Screen Not Detected (NotDetected); Cocaine Metabolite Screen Not Detected (NotDetected); Medtox Control Line Valid? VALID (VALID); Medtox Reader # READER 4; Methadone Not Detected (NotDetected); Methamphetamine Not Detected (NotDetected); Opiate Screen Not Detected (NotDetected); Oxycodone Screen Not Detected (NotDetected); Phencyclidine (PCP) Not Detected (NotDetected); THC/Cannabinoid Screen Not Detected (NotDetected); Tricyclic Screen Not Detected (NotDetected)
== END 2020-02-13 17:22 | disposition home or self-care (01) ==
LOC: ERS 03:55
DX: F15.10 Other stimulant abuse, uncomplicated (principal); Z59.0 Homelessness; Z76.5 Malingerer [conscious simulation]; F31.9 Bipolar disorder, unspecified; F17.210 Nicotine dependence, cigarettes, uncomplicated; Z79.899 Other long term (current) drug therapy
CPT/HCPCS: 36415; 80053; 80306; 80307; 81003; 82550; 84443; 85025; 99285

== ENCOUNTER 2020-03-05 21:18 | Emergency (ER) | payer SELFPAY ==
[2020-03-05 22:06] LABS: Amphetamine Not Detected (NotDetected); Barbiturates Screen Not Detected (NotDetected); Benzodiazepine Screen Not Detected (NotDetected); Cocaine Metabolite Screen Not Detected (NotDetected); Medtox Control Line Valid? VALID (VALID); Medtox Reader # READER 4; Methadone Not Detected (NotDetected); Methamphetamine Not Detected (NotDetected); Opiate Screen Not Detected (NotDetected); Oxycodone Screen Not Detected (NotDetected); Phencyclidine (PCP) Not Detected (NotDetected); THC/Cannabinoid Screen Not Detected (NotDetected); Tricyclic Screen Not Detected (NotDetected)
[2020-03-05 22:10] LABS: #Basophils 0.1 thou/uL (0.0-0.2); #Eosinphils 0.3 thou/uL (0.0-0.7); #Lymphocytes 3.3 thou/uL (1.20-3.40); #Monocytes 0.6 thou/uL (0.11-0.59); #Neutrophils 7.5 thou/uL (1.40-6.50); %Basophils 0.6 % (0.0-1.0); %Eosinophils 2.6 % (0.0-10.0); %Lymphocytes 27.8 % (21.0-51.0); %Monocytes 4.8 % (0.0-10.0); %Neutrophils 64.2 % (42.0-75.0); Hemoglobin 15.2 g/dL (14.0-18.0); Mean Corpuscular HGB CONC 33.9 g/dL (32.0-36.0); Mean Corpuscular Hemoglobin 30.5 pg (27.0-31.0); Mean Platelet Volume 8.6 fL (7.4-10.4); Platelet Count 228 thou/uL (130-400); RBC Distribution Width 11.8 % (11.5-14.5); Red Blood Cell (RBC) Count 4.97 mill/uL (4.70-6.10); White Blood Cell (WBC) Count 11.7 thou/uL (4.8-10.8)
[2020-03-05 22:19] LABS: Acetaminophen Less than 6.0 mcg/mL (10.0-30.0); Alcohol Less than 10 mg/dL (Less than 10); CK (CPK) 242 U/L (30-200); Salicylate Less than 8.0 mg/dL (15.0-30.0)
[2020-03-05 22:21] LABS: ALT (SGPT) 23 U/L (8-55); AST (SGOT) 20 U/L (5-34); Albumin 4.6 g/dL (3.5-5.0); Alkaline Phosphatase 58 U/L (40-110); Anion Gap 15 mmol/L (10-20); BUN (Urea Nitrogen) 18 mg/dL (8.9-20.6); Bilirubin, Total 0.6 mg/dL (0.2-1.2); Calc. Creatinine Clearance 0 mL/min (70-130); Calcium 9.7 mg/dL (7.8-10.44); Carbon Dioxide 26 mmol/L (22-29); Chloride 104 mmol/L (98-107); Estimated GFR-MDRD Greater than 90; Globulin 2.7 g/dL (2.4-3.5); Glucose 78 mg/dL (70-105); Potassium 3.6 mmol/L (3.5-5.1); Protein, Total 7.3 g/dL (6.0-8.3); Sodium 141 mmol/L (136-145)
== END 2020-03-06 01:09 | disposition home or self-care (01) ==
LOC: ERS 21:18
DX: Z76.5 Malingerer [conscious simulation] (principal); F31.9 Bipolar disorder, unspecified; F17.210 Nicotine dependence, cigarettes, uncomplicated; Z79.899 Other long term (current) drug therapy
CPT/HCPCS: 36415; 80053; 80306; 80307; 82550; 84443; 85025; 93005

== ENCOUNTER 2020-03-14 21:16 | Emergency (ER) | payer SELFPAY ==
[2020-03-14 22:10] LABS: #Basophils 0.1 thou/uL (0.0-0.2); #Eosinphils 0.3 thou/uL (0.0-0.7); #Lymphocytes 3.1 thou/uL (1.20-3.40); #Monocytes 0.5 thou/uL (0.11-0.59); #Neutrophils 5.3 thou/uL (1.40-6.50); %Basophils 0.7 % (0.0-1.0); %Eosinophils 3.1 % (0.0-10.0); %Lymphocytes 33.4 % (21.0-51.0); %Monocytes 4.9 % (0.0-10.0); %Neutrophils 57.9 % (42.0-75.0); Hemoglobin 13.7 g/dL (14.0-18.0); Mean Corpuscular HGB CONC 34.3 g/dL (32.0-36.0); Mean Corpuscular Hemoglobin 31.1 pg (27.0-31.0); Mean Corpuscular Volume 90.7 fL (78.0-98.0); Mean Platelet Volume 8.6 fL (7.4-10.4); Platelet Count 208 thou/uL (130-400); RBC Distribution Width 11.7 % (11.5-14.5); Red Blood Cell (RBC) Count 4.39 mill/uL (4.70-6.10); White Blood Cell (WBC) Count 9.2 thou/uL (4.8-10.8)
[2020-03-14 22:13] LABS: Bilirubin Negative (Negative); Blood, Urine Negative (Negative); Clarity Clear (Clear); Glucose, Urine (Dipstick) Normal (Negative); Leukocyte Negative Leu/uL (Negative); Nitrite Negative (Negative); Protein, Urine (Dipstick) Negative (Neg-Trace)
[2020-03-14 22:29] LABS: Amphetamine Not Detected (NotDetected); Barbiturates Screen Not Detected (NotDetected); Benzodiazepine Screen Not Detected (NotDetected); Cocaine Metabolite Screen Detected (NotDetected); Medtox Reader # READER 1; Methadone Not Detected (NotDetected); Methamphetamine Not Detected (NotDetected); Opiate Screen Not Detected (NotDetected); Oxycodone Screen Not Detected (NotDetected); Phencyclidine (PCP) Not Detected (NotDetected); THC/Cannabinoid Screen Detected (NotDetected); Tricyclic Screen Not Detected (NotDetected)
[2020-03-14 22:29] LABS: ALT (SGPT) 16 U/L (8-55); AST (SGOT) 13 U/L (5-34); Acetaminophen Less than 6.0 mcg/mL (10.0-30.0); Albumin 4.3 g/dL (3.5-5.0); Alcohol Less than 10 mg/dL (Less than 10); Alkaline Phosphatase 66 U/L (40-110); Anion Gap 15 mmol/L (10-20); BUN (Urea Nitrogen) 18 mg/dL (8.9-20.6); Bilirubin, Total 0.7 mg/dL (0.2-1.2); CK (CPK) 208 U/L (30-200); Calc. Creatinine Clearance 0 mL/min (70-130); Calcium 9.2 mg/dL (7.8-10.44); Carbon Dioxide 23 mmol/L (22-29); Chloride 108 mmol/L (98-107); Estimated GFR-MDRD Greater than 90; Globulin 2.2 g/dL (2.4-3.5); Glucose 98 mg/dL (70-105); Potassium 3.9 mmol/L (3.5-5.1); Protein, Total 6.5 g/dL (6.0-8.3); Salicylate Less than 8.0 mg/dL (15.0-30.0); Sodium 142 mmol/L (136-145)
[2020-03-14 22:30] LABS: Medtox Control Line Valid? VALID (VALID)
--- NOTE | 2020-03-15 15:05 | EKG ---
Test Reason : Blood Pressure : / mmHG Vent. Rate : 061 BPM Atrial Rate : 061 BPM P-R Int : 126 ms QRS Dur : 098 ms QT Int : 390 ms P-R-T Axes : 067 022 010 degrees QTc Int : 392 ms Normal sinus rhythm Normal ECG Confirmed by STEVE WOOD DO ([id number]), script editor YANG PRIDE ([id number]) on 03/15/2020 3:04:31 PM Referred By: Confirmed By:STEVE WOOD DO
== END 2020-03-14 23:55 | disposition home or self-care (01) ==
LOC: ERS 21:16
DX: Z76.5 Malingerer [conscious simulation] (principal); F31.9 Bipolar disorder, unspecified; F17.210 Nicotine dependence, cigarettes, uncomplicated; Z79.899 Other long term (current) drug therapy
CPT/HCPCS: 36415; 80053; 80306; 80307; 81003; 82550; 85025; 93005

== ENCOUNTER 2020-04-07 03:53 | Emergency (ER) | payer SELFPAY | END 2020-04-07 04:17 | disposition home or self-care (01) | LOC: ERS 03:53 | DX: R11.10 Vomiting, unspecified (principal); F31.9 Bipolar disorder, unspecified; F17.210 Nicotine dependence, cigarettes, uncomplicated; Z79.899 Other long term (current) drug therapy | CPT/HCPCS: 99281 ==

== ENCOUNTER 2020-04-16 23:23 | Emergency (ER) | payer SELFPAY ==
[2020-04-17 00:13] LABS: Bacteria/HPF None Seen HPF (None Seen); Bilirubin Negative (Negative); Blood, Urine Negative (Negative); Clarity Clear (Clear); Glucose, Urine (Dipstick) Normal (Negative); Leukocyte Negative Leu/uL (Negative); Nitrite Negative (Negative); Protein, Urine (Dipstick) 50 mg/dL (Neg-Trace); Squamous Epithelial 0-3 HPF (0-3); Urobilinogen Greater than 12 mg/dL (Less than 2); WBC/HPF 0-3 HPF (0-3)
[2020-04-17 01:15] LABS: #Basophils 0.1 thou/uL (0.0-0.2); #Eosinphils 0.4 thou/uL (0.0-0.7); #Lymphocytes 3.4 thou/uL (1.20-3.40); #Monocytes 0.7 thou/uL (0.11-0.59); #Neutrophils 6.7 thou/uL (1.40-6.50); %Basophils 0.6 % (0.0-1.0); %Eosinophils 3.6 % (0.0-10.0); %Lymphocytes 30.3 % (21.0-51.0); %Monocytes 5.9 % (0.0-10.0); %Neutrophils 59.5 % (42.0-75.0); Mean Corpuscular HGB CONC 34.3 g/dL (32.0-36.0); Mean Corpuscular Hemoglobin 31.4 pg (27.0-31.0); Mean Corpuscular Volume 91.7 fL (78.0-98.0); Mean Platelet Volume 8.7 fL (7.4-10.4); Platelet Count 231 thou/uL (130-400); RBC Distribution Width 11.9 % (11.5-14.5); Red Blood Cell (RBC) Count 4.76 mill/uL (4.70-6.10); White Blood Cell (WBC) Count 11.2 thou/uL (4.8-10.8)
[2020-04-17 01:36] LABS: Acetaminophen Less than 6.0 mcg/mL (10.0-30.0); Alcohol Less than 10 mg/dL (Less than 10); Anion Gap 13 mmol/L (10-20); BUN (Urea Nitrogen) 14 mg/dL (8.9-20.6); CK (CPK) 247 U/L (30-200); Calc. Creatinine Clearance 0 mL/min (70-130); Calcium 8.8 mg/dL (7.8-10.44); Carbon Dioxide 25 mmol/L (22-29); Chloride 105 mmol/L (98-107); Estimated GFR-MDRD Greater than 90; Glucose 104 mg/dL (70-105); Potassium 3.6 mmol/L (3.5-5.1); Salicylate Less than 8.0 mg/dL (15.0-30.0); Sodium 139 mmol/L (136-145)
[2020-04-17 02:16] LABS: Amphetamine Not Detected (NotDetected); Barbiturates Screen Not Detected (NotDetected); Benzodiazepine Screen Not Detected (NotDetected); Cocaine Metabolite Screen Not Detected (NotDetected); Medtox Control Line Valid? VALID (VALID); Medtox Reader # READER 1; Methadone Not Detected (NotDetected); Methamphetamine Not Detected (NotDetected); Opiate Screen Not Detected (NotDetected); Oxycodone Screen Not Detected (NotDetected); Phencyclidine (PCP) Not Detected (NotDetected); THC/Cannabinoid Screen Detected (NotDetected); Tricyclic Screen Not Detected (NotDetected)
== END 2020-04-17 03:11 | disposition home or self-care (01) ==
LOC: ERS 23:23
DX: Z76.5 Malingerer [conscious simulation] (principal); F31.9 Bipolar disorder, unspecified; F17.210 Nicotine dependence, cigarettes, uncomplicated
CPT/HCPCS: 36415; 80048; 80306; 80307; 81003; 81015; 82550; 84443; 85025; 93005

== ENCOUNTER 2020-06-14 15:05 | Emergency (ER) | payer SELFPAY ==
[2020-06-14 16:11] LABS: #Eosinphils 0.2 thou/uL (0.0-0.7); #Lymphocytes 1.9 thou/uL (1.20-3.40); #Monocytes 0.7 thou/uL (0.11-0.59); #Neutrophils 5.8 thou/uL (1.40-6.50); %Basophils 0.4 % (0.0-1.0); %Eosinophils 2.3 % (0.0-10.0); %Lymphocytes 21.5 % (21.0-51.0); %Monocytes 8.6 % (0.0-10.0); %Neutrophils 67.3 % (42.0-75.0); Hemoglobin 13.5 g/dL (14.0-18.0); Mean Corpuscular HGB CONC 34.9 g/dL (32.0-36.0); Mean Corpuscular Hemoglobin 30.9 pg (27.0-31.0); Mean Corpuscular Volume 88.6 fL (78.0-98.0); Mean Platelet Volume 8.8 fL (7.4-10.4); Platelet Count 202 thou/uL (130-400); RBC Distribution Width 11.3 % (11.5-14.5); Red Blood Cell (RBC) Count 4.36 mill/uL (4.70-6.10); White Blood Cell (WBC) Count 8.6 thou/uL (4.8-10.8)
[2020-06-14 16:13] LABS: Bacteria/HPF None Seen HPF (None Seen); Bilirubin Negative (Negative); Blood, Urine Negative (Negative); Clarity Clear (Clear); Glucose, Urine (Dipstick) Normal (Negative); Ketone, Urine Trace mg/dL (Negative); Leukocyte Negative Leu/uL (Negative); Mucous/LPF 2+ LPF (<2+); Nitrite Negative (Negative); Protein, Urine (Dipstick) 50 mg/dL (Neg-Trace); RBC/HPF 0-3 HPF (0-3); Specific Gravity, Urine 1.032 (1.002-1.036); Squamous Epithelial 0-3 HPF (0-3); Urobilinogen 3 mg/dL (Less than 2); WBC/HPF 0-3 HPF (0-3); pH, Urine 5.5 (5.0-9.0)
[2020-06-14 16:15] LABS: Acetaminophen Less than 6.0 mcg/mL (10.0-30.0); Alcohol Less than 10 mg/dL (Less than 10); Salicylate Less than 8.0 mg/dL (15.0-30.0)
[2020-06-14 16:16] LABS: ALT (SGPT) 17 U/L (8-55); AST (SGOT) 16 U/L (5-34); Albumin 4.5 g/dL (3.5-5.0); Alkaline Phosphatase 62 U/L (40-110); Anion Gap 16 mmol/L (10-20); BUN (Urea Nitrogen) 12 mg/dL (8.9-20.6); Bilirubin, Total 0.6 mg/dL (0.2-1.2); CK (CPK) 382 U/L (30-200); Calc. Creatinine Clearance 0 mL/min (70-130); Calcium 9.4 mg/dL (7.8-10.44); Carbon Dioxide 22 mmol/L (22-29); Chloride 107 mmol/L (98-107); Estimated GFR-MDRD Greater than 90; Globulin 2.4 g/dL (2.4-3.5); Glucose 120 mg/dL (70-105); Potassium 3.5 mmol/L (3.5-5.1); Protein, Total 6.9 g/dL (6.0-8.3); Sodium 141 mmol/L (136-145)
[2020-06-14 16:20] LABS: Amphetamine Not Detected (NotDetected); Barbiturates Screen Not Detected (NotDetected); Benzodiazepine Screen Not Detected (NotDetected); Cocaine Metabolite Screen Not Detected (NotDetected); Medtox Reader # READER 4; Methadone Not Detected (NotDetected); Methamphetamine Not Detected (NotDetected); Opiate Screen Not Detected (NotDetected); Phencyclidine (PCP) Not Detected (NotDetected); THC/Cannabinoid Screen Not Detected (NotDetected); Tricyclic Screen Not Detected (NotDetected)
[2020-06-14 16:21] LABS: Medtox Control Line Valid? VALID (VALID); Oxycodone Screen Not Detected (NotDetected)
== END 2020-06-14 18:53 | disposition home or self-care (01) ==
LOC: ERS 15:05
DX: F32.9 Major depressive disorder, single episode, unspecified (principal); F41.9 Anxiety disorder, unspecified; F17.210 Nicotine dependence, cigarettes, uncomplicated
CPT/HCPCS: 36415; 80053; 80306; 80307; 81003; 81015; 82550; 84443; 85025; 93005

== ENCOUNTER 2020-06-19 20:54 | Emergency (ER) | payer SELFPAY ==
[2020-06-19] MEDS ORDERED: Lidocaine 1% w/Epinephrine 1:100K 20 ML VIAL ONE (20:57)
== END 2020-06-19 21:13 ==
LOC: ERS 20:54
DX: S06.0X9A Concussion with loss of consciousness of unspecified duration, initial encounter (principal); S01.111A Laceration without foreign body of right eyelid and periocular area, initial encounter; F10.129 Alcohol abuse with intoxication, unspecified; F31.9 Bipolar disorder, unspecified; F17.210 Nicotine dependence, cigarettes, uncomplicated; Y04.0XXA Assault by unarmed brawl or fight, initial encounter
CPT/HCPCS: 12013

== ENCOUNTER 2020-06-20 19:49 | Emergency (ER) | payer SELFPAY ==
[2020-06-20] MEDS ORDERED: Acetaminophen 500 MG TAB ONE (19:58)
== END 2020-06-20 20:05 | disposition home or self-care (01) ==
LOC: ERS 19:49
DX: R51 Headache (principal); F17.210 Nicotine dependence, cigarettes, uncomplicated; F31.9 Bipolar disorder, unspecified
CPT/HCPCS: 99284

== ENCOUNTER 2020-07-27 22:15 | Emergency (ER) | payer SELFPAY ==
[2020-07-27 23:24] LABS: #Basophils 0.1 thou/uL (0.0-0.2); #Eosinphils 0.2 thou/uL (0.0-0.7); #Lymphocytes 2.9 thou/uL (1.20-3.40); #Monocytes 0.6 thou/uL (0.11-0.59); #Neutrophils 7.6 thou/uL (1.40-6.50); %Basophils 0.6 % (0.0-1.0); %Eosinophils 1.4 % (0.0-10.0); %Lymphocytes 25.2 % (21.0-51.0); %Monocytes 5.6 % (0.0-10.0); %Neutrophils 67.2 % (42.0-75.0); Mean Corpuscular Hemoglobin 31.5 pg (27.0-31.0); Mean Corpuscular Volume 90.1 fL (78.0-98.0); Mean Platelet Volume 8.1 fL (7.4-10.4); Platelet Count 235 thou/uL (130-400); RBC Distribution Width 11.8 % (11.5-14.5); Red Blood Cell (RBC) Count 4.76 mill/uL (4.70-6.10); White Blood Cell (WBC) Count 11.3 thou/uL (4.8-10.8)
[2020-07-27 23:38] LABS: ALT (SGPT) 17 U/L (8-55); AST (SGOT) 19 U/L (5-34); Acetaminophen Less than 6.0 mcg/mL (10.0-30.0); Albumin 4.5 g/dL (3.5-5.0); Alcohol Less than 10 mg/dL (Less than 10); Alkaline Phosphatase 65 U/L (40-110); Anion Gap 15 mmol/L (10-20); BUN (Urea Nitrogen) 22 mg/dL (8.9-20.6); Bilirubin, Total 1.2 mg/dL (0.2-1.2); CK (CPK) 454 U/L (30-200); Calc. Creatinine Clearance 0 mL/min (70-130); Carbon Dioxide 23 mmol/L (22-29); Chloride 104 mmol/L (98-107); Estimated GFR-MDRD Greater than 90; Globulin 2.6 g/dL (2.4-3.5); Glucose 93 mg/dL (70-105); Potassium 3.6 mmol/L (3.5-5.1); Protein, Total 7.1 g/dL (6.0-8.3); Salicylate Less than 8.0 mg/dL (15.0-30.0); Sodium 138 mmol/L (136-145)
[2020-07-27 23:57] LABS: Bacteria/HPF None Seen HPF (None Seen); Bilirubin Negative (Negative); Blood, Urine Trace (Negative); Clarity Clear (Clear); Glucose, Urine (Dipstick) Normal (Negative); Ketone, Urine 20 mg/dL (Negative); Leukocyte Negative Leu/uL (Negative); Nitrite Negative (Negative); Protein, Urine (Dipstick) 20 mg/dL (Neg-Trace); RBC/HPF 0-3 HPF (0-3); Specific Gravity, Urine 1.038 (1.002-1.036); Squamous Epithelial 0-3 HPF (0-3); Urobilinogen 3 mg/dL (Less than 2); WBC/HPF 0-3 HPF (0-3); pH, Urine 5.5 (5.0-9.0)
[2020-07-28 00:06] LABS: Amphetamine Detected (NotDetected); Barbiturates Screen Not Detected (NotDetected); Benzodiazepine Screen Not Detected (NotDetected); Cocaine Metabolite Screen Not Detected (NotDetected); Medtox Control Line Valid? VALID (VALID); Medtox Reader # READER 4; Methadone Not Detected (NotDetected); Methamphetamine Detected (NotDetected); Opiate Screen Not Detected (NotDetected); Oxycodone Screen Not Detected (NotDetected); Phencyclidine (PCP) Not Detected (NotDetected); THC/Cannabinoid Screen Detected (NotDetected); Tricyclic Screen Not Detected (NotDetected)
== END 2020-07-28 02:12 | disposition home or self-care (01) ==
LOC: ERS 22:15
DX: F41.9 Anxiety disorder, unspecified (principal); F32.9 Major depressive disorder, single episode, unspecified; F12.90 Cannabis use, unspecified, uncomplicated; F15.90 Other stimulant use, unspecified, uncomplicated; F17.210 Nicotine dependence, cigarettes, uncomplicated
CPT/HCPCS: 36415; 80053; 80306; 80307; 81003; 81015; 82550; 84443; 85025; 99285

== ENCOUNTER 2020-08-15 04:59 | Emergency (ER) | payer SELFPAY | END 2020-08-15 05:25 | disposition home or self-care (01) | LOC: ERS 04:59 | DX: T73.0XXA Starvation, initial encounter (principal); R63.8 Other symptoms and signs concerning food and fluid intake; F31.9 Bipolar disorder, unspecified; F17.210 Nicotine dependence, cigarettes, uncomplicated | CPT/HCPCS: 99284 ==

== ENCOUNTER 2020-08-15 20:16 | Emergency (ER) | payer SELFPAY | END 2020-08-15 21:30 | disposition home or self-care (01) | LOC: ERS 20:16 | DX: T73.0XXA Starvation, initial encounter (principal); Z59.0 Homelessness; F31.9 Bipolar disorder, unspecified; Z79.899 Other long term (current) drug therapy | CPT/HCPCS: 99282 ==

== ENCOUNTER 2020-08-16 21:59 | Emergency (ER) | payer SELFPAY ==
[2020-08-16 22:58] LABS: Amphetamine Not Detected (NotDetected); Barbiturates Screen Not Detected (NotDetected); Benzodiazepine Screen Not Detected (NotDetected); Cocaine Metabolite Screen Not Detected (NotDetected); Medtox Control Line Valid? VALID (VALID); Medtox Reader # READER 4; Methadone Not Detected (NotDetected); Methamphetamine Not Detected (NotDetected); Opiate Screen Not Detected (NotDetected); Oxycodone Screen Not Detected (NotDetected); Phencyclidine (PCP) Not Detected (NotDetected); THC/Cannabinoid Screen Detected (NotDetected); Tricyclic Screen Not Detected (NotDetected)
== END 2020-08-16 23:05 | disposition home or self-care (01) ==
LOC: ERS 21:59
DX: Z76.5 Malingerer [conscious simulation] (principal); F31.9 Bipolar disorder, unspecified; F17.210 Nicotine dependence, cigarettes, uncomplicated; Z79.899 Other long term (current) drug therapy
CPT/HCPCS: 80306; 99281

== ENCOUNTER 2020-08-17 06:13 | Emergency (ER) | payer SELFPAY | END 2020-08-17 06:23 | disposition home or self-care (01) | LOC: ERS 06:13 | DX: Z76.5 Malingerer [conscious simulation] (principal); F31.9 Bipolar disorder, unspecified; F17.210 Nicotine dependence, cigarettes, uncomplicated; Z79.899 Other long term (current) drug therapy | CPT/HCPCS: 99281 ==

== ENCOUNTER 2020-08-17 17:46 | Emergency (ER) | payer SELFPAY ==
[2020-08-17 19:28] LABS: #Basophils 0.1 thou/uL (0.0-0.2); #Eosinphils 0.2 thou/uL (0.0-0.7); #Lymphocytes 3.1 thou/uL (1.20-3.40); #Monocytes 0.5 thou/uL (0.11-0.59); #Neutrophils 5.6 thou/uL (1.40-6.50); %Basophils 0.9 % (0.0-1.0); %Eosinophils 2.3 % (0.0-10.0); %Lymphocytes 32.9 % (21.0-51.0); %Monocytes 5.1 % (0.0-10.0); %Neutrophils 58.8 % (42.0-75.0); Hemoglobin 15.1 g/dL (14.0-18.0); Mean Corpuscular HGB CONC 34.7 g/dL (32.0-36.0); Mean Corpuscular Hemoglobin 31.5 pg (27.0-31.0); Mean Corpuscular Volume 90.9 fL (78.0-98.0); Mean Platelet Volume 8.9 fL (7.4-10.4); Platelet Count 217 thou/uL (130-400); RBC Distribution Width 11.5 % (11.5-14.5); Red Blood Cell (RBC) Count 4.79 mill/uL (4.70-6.10); White Blood Cell (WBC) Count 9.5 thou/uL (4.8-10.8)
[2020-08-17 19:49] LABS: Acetaminophen Less than 6.0 mcg/mL (10.0-30.0); Alcohol Less than 10 mg/dL (Less than 10); Salicylate Less than 8.0 mg/dL (15.0-30.0)
[2020-08-17 19:51] LABS: ALT (SGPT) 15 U/L (8-55); AST (SGOT) 15 U/L (5-34); Albumin 4.7 g/dL (3.5-5.0); Alkaline Phosphatase 63 U/L (40-110); Anion Gap 13 mmol/L (10-20); BUN (Urea Nitrogen) 16 mg/dL (8.9-20.6); Bilirubin, Total 0.5 mg/dL (0.2-1.2); CK (CPK) 197 U/L (30-200); Calc. Creatinine Clearance 0 mL/min (70-130); Calcium 9.2 mg/dL (7.8-10.44); Carbon Dioxide 26 mmol/L (22-29); Chloride 105 mmol/L (98-107); Estimated GFR-MDRD Greater than 90; Globulin 2.5 g/dL (2.4-3.5); Glucose 97 mg/dL (70-105); Potassium 4.1 mmol/L (3.5-5.1); Protein, Total 7.2 g/dL (6.0-8.3); Sodium 140 mmol/L (136-145)
[2020-08-17 20:11] LABS: Amphetamine Not Detected (NotDetected); Barbiturates Screen Not Detected (NotDetected); Benzodiazepine Screen Not Detected (NotDetected); Cocaine Metabolite Screen Not Detected (NotDetected); Medtox Control Line Valid? VALID (VALID); Medtox Reader # READER 4; Methadone Not Detected (NotDetected); Methamphetamine Not Detected (NotDetected); Opiate Screen Not Detected (NotDetected); Oxycodone Screen Not Detected (NotDetected); Phencyclidine (PCP) Not Detected (NotDetected); THC/Cannabinoid Screen Detected (NotDetected); Tricyclic Screen Not Detected (NotDetected)
== END 2020-08-17 21:49 | disposition home or self-care (01) ==
LOC: ERS 17:46
DX: F41.9 Anxiety disorder, unspecified (principal); R45.851 Suicidal ideations; F31.9 Bipolar disorder, unspecified; F17.210 Nicotine dependence, cigarettes, uncomplicated
CPT/HCPCS: 36415; 80053; 80306; 80307; 82550; 84443; 85025; 99285

== ENCOUNTER 2020-08-20 13:31 | Emergency (ER) | payer SELFPAY ==
[2020-08-20 14:00] LABS: #Basophils 0.1 thou/uL (0.0-0.2); #Eosinphils 0.1 thou/uL (0.0-0.7); #Lymphocytes 1.8 thou/uL (1.20-3.40); #Monocytes 0.5 thou/uL (0.11-0.59); #Neutrophils 8.4 thou/uL (1.40-6.50); %Basophils 0.5 % (0.0-1.0); %Eosinophils 1.2 % (0.0-10.0); %Lymphocytes 16.6 % (21.0-51.0); %Monocytes 4.9 % (0.0-10.0); %Neutrophils 76.8 % (42.0-75.0); Hemoglobin 15.4 g/dL (14.0-18.0); Mean Corpuscular HGB CONC 34.6 g/dL (32.0-36.0); Mean Corpuscular Hemoglobin 31.3 pg (27.0-31.0); Mean Corpuscular Volume 90.5 fL (78.0-98.0); Mean Platelet Volume 8.7 fL (7.4-10.4); Platelet Count 215 thou/uL (130-400); RBC Distribution Width 11.6 % (11.5-14.5); Red Blood Cell (RBC) Count 4.91 mill/uL (4.70-6.10); White Blood Cell (WBC) Count 10.9 thou/uL (4.8-10.8)
[2020-08-20 14:13] LABS: Bilirubin Negative (Negative); Blood, Urine Negative (Negative); Clarity Clear (Clear); Glucose, Urine (Dipstick) Normal (Negative); Ketone, Urine Negative (Negative); Leukocyte Negative Leu/uL (Negative); Nitrite Negative (Negative); Protein, Urine (Dipstick) 20 mg/dL (Neg-Trace); Urobilinogen 3 mg/dL (Less than 2); pH, Urine 7.5 (5.0-9.0)
[2020-08-20 14:19] LABS: ALT (SGPT) 14 U/L (8-55); AST (SGOT) 17 U/L (5-34); Acetaminophen Less than 6.0 mcg/mL (10.0-30.0); Albumin 4.5 g/dL (3.5-5.0); Alcohol Less than 10 mg/dL (Less than 10); Alkaline Phosphatase 61 U/L (40-110); Anion Gap 13 mmol/L (10-20); BUN (Urea Nitrogen) 20 mg/dL (8.9-20.6); Bilirubin, Total 1.2 mg/dL (0.2-1.2); Calc. Creatinine Clearance 0 mL/min (70-130); Carbon Dioxide 24 mmol/L (22-29); Chloride 103 mmol/L (98-107); Estimated GFR-MDRD Greater than 90; Globulin 2.3 g/dL (2.4-3.5); Glucose 92 mg/dL (70-105); Potassium 3.9 mmol/L (3.5-5.1); Protein, Total 6.8 g/dL (6.0-8.3); Salicylate Less than 8.0 mg/dL (15.0-30.0); Sodium 136 mmol/L (136-145)
[2020-08-20 14:23] LABS: Amphetamine Not Detected (NotDetected); Barbiturates Screen Not Detected (NotDetected); Benzodiazepine Screen Not Detected (NotDetected); Cocaine Metabolite Screen Not Detected (NotDetected); Medtox Control Line Valid? VALID (VALID); Medtox Reader # READER 4; Methadone Not Detected (NotDetected); Methamphetamine Not Detected (NotDetected); Opiate Screen Not Detected (NotDetected); Oxycodone Screen Not Detected (NotDetected); Phencyclidine (PCP) Not Detected (NotDetected); THC/Cannabinoid Screen Detected (NotDetected); Tricyclic Screen Not Detected (NotDetected)
[2020-08-21] MEDS ORDERED: risperiDONE 1 MG TAB PO SCH (17:30)
[2020-08-21] MEDS ORDERED: risperiDONE 1 MG TAB ONE (18:16)
== END 2020-08-21 18:21 | disposition home or self-care (01) ==
LOC: ERS 13:31
DX: S60.811A Abrasion of right wrist, initial encounter (principal); F43.10 Post-traumatic stress disorder, unspecified; F31.9 Bipolar disorder, unspecified; F17.210 Nicotine dependence, cigarettes, uncomplicated; F12.90 Cannabis use, unspecified, uncomplicated; W26.9XXA Contact with unspecified sharp object(s), initial encounter
CPT/HCPCS: 36415; 80053; 80306; 80307; 81003; 85025; 99285

== ENCOUNTER 2020-08-24 06:56 | Inpatient (IN) | payer OTHER, SELFPAY ==
[2020-08-24] MEDS ORDERED: Fentanyl 100 MCG/2 ML VIAL ONE ×3 (07:09→10:42)
[2020-08-24] MEDS ORDERED: Boostrix 0.5 ML (Tdap) VIAL ONE ×2 (07:09→07:51)
[2020-08-24 07:29] LABS: Mean Corpuscular HGB CONC 34.2 g/dL (32.0-36.0); Mean Corpuscular Hemoglobin 31.4 pg (27.0-31.0); Mean Corpuscular Volume 91.7 fL (78.0-98.0); Mean Platelet Volume 9.4 fL (7.4-10.4); Platelet Count 209 thou/uL (130-400); RBC Distribution Width 11.5 % (11.5-14.5); Red Blood Cell (RBC) Count 4.78 mill/uL (4.70-6.10); White Blood Cell (WBC) Count 26.9 thou/uL (4.8-10.8)
[2020-08-24 07:52] LABS: ALT (SGPT) 182 U/L (8-55); AST (SGOT) 190 U/L (5-34); Albumin 4.3 g/dL (3.5-5.0); Alkaline Phosphatase 73 U/L (40-110); Anion Gap 19 mmol/L (10-20); BUN (Urea Nitrogen) 22 mg/dL (8.9-20.6); Bilirubin, Total 1.5 mg/dL (0.2-1.2); Calc. Creatinine Clearance 0 mL/min (70-130); Calcium 8.4 mg/dL (7.8-10.44); Carbon Dioxide 22 mmol/L (22-29); Chloride 101 mmol/L (98-107); Estimated GFR-MDRD 67; Globulin 2.7 g/dL (2.4-3.5); Glucose 168 mg/dL (70-105); Potassium 4.3 mmol/L (3.5-5.1); Sodium 138 mmol/L (136-145)
[2020-08-24] MEDS ORDERED: Dextrose 50% Abboject 50 ML SYRINGE SLOW IVP PRN (07:52)
[2020-08-24] MEDS ORDERED: Morphine 4 MG/ML VIAL SLOW IVP PRN (07:52)
[2020-08-24] MEDS ORDERED: Dextrose 5% in Water 1,000 ML IV PRN (07:52)
[2020-08-24 07:55] LABS: Band 16 % (5-11); Lymphocytes 10 % (21-51); MDiff Complete? YES; Metamyelocyte 1 % (0-0); Monocytes 4 % (0-10); Neutrophil 69 % (42-75); Platelet Morphology Comment Appears Adequate; RBC Morphology Normal
[2020-08-24] MEDS ORDERED: Sodium Chloride 0.9% 1,000 ML IV SCH (08:00)
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
[2020-08-24 08:18] LABS: Bilirubin Negative (Negative); Blood, Urine 3+ (Negative); Clarity Turbid (Clear); Glucose, Urine (Dipstick) 30 mg/dL (Negative); Ketone, Urine 10 mg/dL (Negative); Leukocyte Negative Leu/uL (Negative); Nitrite Negative (Negative); Protein, Urine (Dipstick) 200 mg/dL (Neg-Trace); Specific Gravity, Urine 1.031 (1.002-1.036); Urobilinogen Normal mg/dL (Less than 2)
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
--- NOTE | 2020-08-24 08:18 | RAD ---
XR Wrist 3 Rt View STANDARD: 08/24/2020 7:11 AM CLINICAL INDICATION: Wrist deformity COMPARISON: Prior right wrist radiograph dated October 15, 2010. FINDINGS: Bones: No acute osseous abnormality. Joints: There is widening of the scapholunate interval suspicious for scapholunate ligamentous insuff iciency.. Soft Tissue: Normal.. IMPRESSION: Widening of the scapholunate interval suspicious for scapholunate ligamentous insufficiency.
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
[2020-08-24 08:26] LABS: Amphetamine Not Detected (NotDetected); Barbiturates Screen Not Detected (NotDetected); Benzodiazepine Screen Not Detected (NotDetected); Cocaine Metabolite Screen Not Detected (NotDetected); Medtox Control Line Valid? VALID (VALID); Medtox Reader # READER 4; Methadone Not Detected (NotDetected); Methamphetamine Not Detected (NotDetected); Opiate Screen Not Detected (NotDetected); Oxycodone Screen Not Detected (NotDetected); Phencyclidine (PCP) Not Detected (NotDetected); THC/Cannabinoid Screen Not Detected (NotDetected); Tricyclic Screen Not Detected (NotDetected)
[2020-08-24 08:29] LABS: Bacteria/HPF Rare-Few HPF (None Seen)
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
--- NOTE | 2020-08-24 08:31 | RAD ---
RIGHT FEMUR 2 VIEWS: Date: 08/24/2020 HISTORY: Injury. FINDINGS: Extensively comminuted predominantly oblique fracture of the mid femoral shaft is present with comple te shaft width posterior displacement of the major distal fragment and apex anterior angulation. Inte rnal rotation estimated at 90 degrees. Adjacent soft tissue gas. Catheter and contrast material apparent within the urinary bladder. IMPRESSION: Comminuted right femoral fracture with soft tissue gas. POS: BST
--- NOTE | 2020-08-24 08:32 | RAD ---
LEFT HAND 3 VIEWS: Date: 08/24/2020 HISTORY: Injury. FINDINGS: Joint spaces are preserved. No acute fracture, dislocation, or aggressive osseous erosions apparent. No radiopaque foreign body is visible. Ulna minus variant noted. IMPRESSION: No acute osseous abnormalities are demonstrated. POS: BST
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
[2020-08-24 08:34] LABS: Phosphorus 4.9 mg/dL (2.3-4.7)
[2020-08-24] MEDS ORDERED: Iopamidol 370 76% 50 ML VIAL FS ONE (08:34)
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
[2020-08-24] MEDS ORDERED: Lidocaine 1% (PF) 30 ML VIAL ONE (08:43)
[2020-08-24] MEDS ORDERED: Famotidine 20 MG TAB PO SCH (09:00)
[2020-08-24] MEDS ORDERED: Midazolam HCl 2 mg/2 ml Vial ONE ×2 (09:16→15:03)
[2020-08-24 09:18] LABS: INR-International Normal Ratio 1.3; PTT 31.9 sec (22.9-36.1); Prothrombin Time 16.6 sec (12.0-14.7)
[2020-08-24] MEDS ORDERED: Ondansetron PF 4 MG/2 ML Vial ONE (09:28)
[2020-08-24] MEDS ORDERED: Dexamethasone 10 MG in Sodium Chloride 0.9% 50 ML IVPB SCH (09:45)
[2020-08-24] MEDS ORDERED: Magnesium 2 GM/50 ML 2 GM in Premix Bag 1 BAG IVPB SCH (10:00)
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
[2020-08-24] MEDS ORDERED: EPHEDRINE 25 MG/5 ML SYRINGE ONE (10:28)
[2020-08-24] MEDS ORDERED: PROPOFOL 200 MG/20 ML VIAL ONE (10:28)
[2020-08-24] MEDS ORDERED: Rocuronium Bromide 10 MG/ML (10ML VIAL) ONE (10:28)
[2020-08-24] MEDS ORDERED: Lidocaine 1% PF 5 ML VIAL ONE (10:28)
[2020-08-24] MEDS ORDERED: PHENYLEPHRINE-NS 100 MCG/ML 10 ML SYRINGE ONE (10:28)
[2020-08-24] MEDS ORDERED: Vecuronium 10 MG VIAL ONE (10:28)
[2020-08-24] MEDS ORDERED: Succinylcholine Chloride 20 MG/ML 10 ml SYRINGE FS ONE (10:28)
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
--- NOTE | 2020-08-24 11:12 | RAD ---
XR Wrist 3 Lt View STANDARD: 08/24/2020 7:11 AM CLINICAL INDICATION: Wrist deformity COMPARISON: Prior right wrist radiograph dated October 15, 2010. FINDINGS: Bones: No acute osseous abnormality. Joints: There is widening of the scapholunate interval suspicious for scapholunate ligamentous insuff iciency.. Soft Tissue: Normal.. IMPRESSION: Widening of the scapholunate interval suspicious for scapholunate ligamentous insufficiency. POS: GRICELDA
[2020-08-24 11:30] VITALS: BMI 25.9
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
[2020-08-24] MEDS: Sodium Chloride 0.9% 1,000 ML IV SCH ×2 (11:55→14:45)
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
[2020-08-24 12:29] LABS: Hemoglobin 11.4 g/dL (14.0-18.0); Mean Corpuscular HGB CONC 34.4 g/dL (32.0-36.0); Mean Corpuscular Volume 90.3 fL (78.0-98.0); Mean Platelet Volume 8.6 fL (7.4-10.4); Platelet Count 163 thou/uL (130-400); RBC Distribution Width 11.7 % (11.5-14.5); Red Blood Cell (RBC) Count 3.68 mill/uL (4.70-6.10); White Blood Cell (WBC) Count 15.6 thou/uL (4.8-10.8)
[2020-08-24 12:32] LABS: Lactic Acid 2.4 mmol/L (0.5-2.2)
[2020-08-24 12:34] LABS: Anion Gap 14 mmol/L (10-20); BUN (Urea Nitrogen) 22 mg/dL (8.9-20.6); Calc. Creatinine Clearance 118 mL/min (70-130); Calcium 7.3 mg/dL (7.8-10.44); Carbon Dioxide 19 mmol/L (22-29); Chloride 107 mmol/L (98-107); Estimated GFR-MDRD 86; Glucose 160 mg/dL (70-105); Potassium 4.5 mmol/L (3.5-5.1); Sodium 135 mmol/L (136-145)
[2020-08-24 12:46] LABS: Band 46 % (5-11); Lymphocytes 2 % (21-51); MDiff Complete? YES; Monocytes 5 % (0-10); Neutrophil 44 % (42-75); Platelet Morphology Comment Appears Adequate; Polychromasia SLIGHT = 2-3 cells (100X) (0-2/hpf); Reactive Lymphocytes 3 % (0-10)
[2020-08-24] MEDS ORDERED: Iopamidol-370 76% 500 ML 1 ML ONE (12:50)
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
[2020-08-24] MEDS ORDERED: Thrombin 5000 UNITS/5 ML VIAL ONE (14:42)
[2020-08-24] MEDS ORDERED: Bupivacaine HCl 0.5%/Epinephrine 1:200,000/PF 30 ml Vial ONE (14:42)
[2020-08-24] MEDS ORDERED: Sodium Chloride 0.9% 10 ML ONE ×2 (14:42→22:31)
[2020-08-24] MEDS ORDERED: Dexamethasone 4 MG in Sodium Chloride 0.9% 50 ML IVPB SCH (15:00)
[2020-08-24] MEDS ORDERED: CEFAZOLIN 1 GM VIAL SLOW IVP ONE (15:00)
[2020-08-24] MEDS ORDERED: Fentanyl 250 MCG/5 ML VIAL ONE (15:03)
[2020-08-24] MEDS ORDERED: Albumin 5% 500 ML ONE (15:03)
[2020-08-24] MEDS ORDERED: Phenylephrine 10 MG/ML VIAL ONE (15:03)
[2020-08-24] MEDS ORDERED: Ketamine 50 MG/ML (10ML VIAL) ONE (15:09)
[2020-08-24] MEDS ORDERED: CEFAZOLIN 2 GM in Premix Bag 1 BAG IVPB SCH (15:15)
[2020-08-24 16:34] LABS: SARS-CoV-2 NAA Rapid Test DETECTED (NotDetected)
[2020-08-24] MEDS ORDERED: Sodium Chloride 0.9% 20 ML ONE (16:42)
--- NOTE | 2020-08-24 20:29 | RAD ---
Exam:Intraoperative fluoroscopy HISTORY: ORIF left femur COMPARISON: None FINDINGS: 6 views demonstrate internal fixation of a right femur fracture. Intramedullary heron. Proxim al and distal interlocking screws Exposure: 92.3 seconds, 9.3 mg IMPRESSION: Fracture as above
[2020-08-24] MEDS ORDERED: Bacitracin Zinc Ointment 30 gm TUBE ONE (22:31)
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
[2020-08-25] MEDS ORDERED: Propofol 1,000 MG/100 ML VIAL IV ONE (00:32)
[2020-08-25 01:05] LABS: Actual Bicarbonate (HCO3a) 18.1 mEq/L (22-28); CO2 Tension 39.4 mmHg (35.0-45.0); Calcium, Ionized (arterial) 0.94 mmol/L (1.12-1.30); Carboxyhemoglobin (COHb) 0.1 gm% (0.0-3.0); Hemoglobin (Hb) 8.1 g/dL (14.0-18.0); O2 Tension (PaO2), arterial 296.3 mmHg (80.0-100.0); Potassium - ABG Lab 6.05 mmol/L (3.70-5.30); pH, Arterial 7.28 (7.35-7.45)
[2020-08-25] MEDS ORDERED: Ventilator Sedation Protocol 1 EACH FS SCH (01:05)
[2020-08-25 01:07] LABS: Puncture Site LINE
[2020-08-25] MEDS: Dexamethasone 4 MG in Sodium Chloride 0.9% 50 ML IVPB SCH ×5 (01:09→17:48)
[2020-08-25] MEDS: Sodium Chloride 0.9% 1,000 ML IV SCH ×5 (01:09→17:48)
[2020-08-25] MEDS ORDERED: Fentanyl BOLUS 250 ML IVPB PRN (01:15)
[2020-08-25] MEDS ORDERED: fentaNYL Citrate/PF 2,000 MCG in Sodium Chloride 0.9% 60 ML IV SCH (01:15)
[2020-08-25] MEDS ORDERED: Propofol BOLUS 1,000 MG/100 ML VIAL IV PRN (01:15)
[2020-08-25] MEDS ORDERED: Lorazepam 2 MG/ML VIAL SLOW IVP PRN (01:15)
[2020-08-25] MEDS ORDERED: DISCONTINUE PREVIOUS NARCOTIC PAIN MEDICATIONS AND BENZODIAZEPINES FS SCH (01:15)
[2020-08-25] MEDS ORDERED: Morphine 2 MG/ML VIAL SLOW IVP PRN (01:15)
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
[2020-08-25] MEDS ORDERED: CALCIUM CHLORIDE IVPB SCH (02:00)
[2020-08-25] MEDS ORDERED: SODIUM CHLORIDE 0.9% IVPB SCH (02:00)
[2020-08-25] MEDS: CEFAZOLIN 2 GM in Premix Bag 1 BAG IVPB SCH ×3 (05:14→21:55)
[2020-08-25 05:33] LABS: Lactic Acid 4.1 mmol/L (0.5-2.2)
[2020-08-25 05:42] LABS: Anion Gap 11 mmol/L (10-20); BUN (Urea Nitrogen) 26 mg/dL (8.9-20.6); Calc. Creatinine Clearance 95 mL/min (70-130); Calcium 9.9 mg/dL (7.8-10.44); Carbon Dioxide 22 mmol/L (22-29); Chloride 110 mmol/L (98-107); Estimated GFR-MDRD 68; Glucose 133 mg/dL (70-105); Magnesium 2.4 mg/dL (1.6-2.6); Phosphorus 4.9 mg/dL (2.3-4.7); Potassium 4.7 mmol/L (3.5-5.1); Sodium 138 mmol/L (136-145)
[2020-08-25 05:56] LABS: CK (CPK) 9902 U/L (30-200)
[2020-08-25 06:08] LABS: Band 37 % (5-11); Hemoglobin 10.1 g/dL (14.0-18.0); Lymphocytes 8 % (21-51); MDiff Complete? YES; Mean Corpuscular HGB CONC 34.2 g/dL (32.0-36.0); Mean Corpuscular Hemoglobin 31.1 pg (27.0-31.0); Mean Corpuscular Volume 90.9 fL (78.0-98.0); Mean Platelet Volume 9.1 fL (7.4-10.4); Metamyelocyte 1 % (0-0); Monocytes 11 % (0-10); Neutrophil 43 % (42-75); Platelet Count 80 thou/uL (130-400); Platelet Morphology Comment Appears Decreased; RBC Distribution Width 12.1 % (11.5-14.5); Red Blood Cell (RBC) Count 3.25 mill/uL (4.70-6.10); White Blood Cell (WBC) Count 9.8 thou/uL (4.8-10.8)
[2020-08-25] MEDS: Propofol 1,000 MG/100 ML VIAL IV PRN ×2 (06:16→08:55)
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
--- NOTE | 2020-08-25 07:04 | PRG ---
DATE OF SERVICE: I stopped by the room of Mr. Younger. He is on full COVID precautions now as his test came back positive and just before surgery. He underwent rodding of his femur fracture yesterday as well as pedicle screw and heron instrumentation for his burst fracture. We chose 2 levels above and 2 levels below because he is insensate from the area of the fracture down and this poses a slightly higher risk for an unknown loosening of hardware without the pain that is normally generated from that. No complications involved in surgery. A drain has been left in place. His hemoglobin is down from his admission. Hemoglobins as high as 15.4 were noted and as low as 8.4 during the operation. Transfusion has been administered. I do not expect any regain of neurological function. The drain can be removed when it is output is less than 5 cc an hour on an average over at least 6 to 8 hours. He should remain on antibiotic therapy at least until that drain is out if not longer for other reasons. Inpatient rehabilitation, to get used to wheelchair life is a necessity in new paraplegic patients. Our Neurosurgery Team will follow up with him in the office at the completion of rehabilitation. We will get AP and lateral x-rays of the thoracolumbar junction at that time. Job ID: [id number]
--- NOTE | 2020-08-25 07:06 | PRG ---
DATE OF SERVICE: 08/25/2020 SUBJECTIVE: The patient was seen in the critical care unit after returning from the OR this evening. The patient is currently intubated and sedated. The patient had an extensive OR time of approximately 5 hours repairing his thoracic and lumbar spine fractures. The patient also had repair of his right femur. The humerus was not repaired due to the extended time for the other procedures. The patient remains stable on the operating room. The patient did test positive for COVID-19. The patient's urinary output is adequate for patient's age and weight. The patient was given 1 unit packed red blood cells by Dr. Mas with Neurosurgery for hemoglobin of 8.1. OBJECTIVE: VITAL SIGNS: The patient is vital signs are stable and he remains afebrile. GENERAL: Young male, on full mechanical ventilatory support. RESPIRATORY: Good inspiratory and expiratory effort. Bilateral breath sounds clear. Blood gas, metabolic acidosis and low ionized calcium. PLAN: Continue full ventilatory support. Repeat ABG in the morning. Chest x-ray and full labs in the morning. We will continue to resuscitate. Continue to monitor blood pressure and urinary output. We will replace calcium with 3 g of calcium chloride. Orthopedic Surgery plans to take the patient to the OR today for repair of his left humerus. Job ID: [id number]
[2020-08-25] MEDS ORDERED: Sodium Chloride 0.9% 1,000 ML IV SCH (07:30)
[2020-08-25 08:07] LABS: Actual Bicarbonate (HCO3a) 19.4 mEq/L (22-28); Base Excess (BEa) -4.5 mEq/L (-2.0 to +3.0); CO2 Tension 31.6 mmHg (35.0-45.0); Carboxyhemoglobin (COHb) 0.3 gm% (0.0-3.0); Hemoglobin (Hb) 10.7 g/dL (14.0-18.0); O2 Tension (PaO2), arterial 238.4 mmHg (80.0-100.0); pH, Arterial 7.41 (7.35-7.45)
[2020-08-25 08:11] LABS: Puncture Site ART LINE
--- NOTE | 2020-08-25 08:18 | RAD ---
EXAM: XR Chest 1 View Portable PROVIDED CLINICAL HISTORY: Trauma COMPARISON: 08/24/2020 FINDINGS: Interval intubation, with tip of ET tube projecting in the region of the thoracic inlet. Interval catarina cement of right subclavian central line, tip of which projects over expected location of right atrium. Interval postoperative changes involving the spine. No focal consolidation, pleural fluid or pneumothorax apparent. IMPRESSION: Interval support apparatus as above.
[2020-08-25] MEDS: Acetaminophen 500 MG TAB PO SCH ×3 (08:55→19:42)
[2020-08-25] MEDS: Gabapentin 300 MG CAP PO SCH ×3 (08:56→20:29)
[2020-08-25] MEDS: Pantoprazole 40 MG VIAL IVP SCH (08:56)
[2020-08-25] MEDS ORDERED: FLU VACC QS2020-21(6MOS UP)/PF 60 MCG/0.5 ML SYRINGE IM ONE (09:00)
--- NOTE | 2020-08-25 10:22 | RAD ---
CHEST 1 VIEW: Date: 08/25/2020 HISTORY: 24-year-old male with history of right-sided pneumothorax. COMPARISON: Prior study dated 08/25/2020 at 0110 hours. FINDINGS: There is instrumentation involving the thoracolumbar spine. There is a gastric catheter projecting in the region of the fundus. ET tube tip is seen at the thoracic inlet. Right subclavian central venous catheter is stable. The lungs are clear. The heart size is normal. No pleural effusion or pneumothor ax is evident. IMPRESSION: 1. Stable tubes and lines. No pneumothorax identified. 2. No acute cardiopulmonary abnormality. 3. Postoperative change of thoracolumbar spine. POS: [facility]
[2020-08-25] MEDS: traMADol HCl 50 MG TAB PO SCH ×2 (12:09→17:46)
--- NOTE | 2020-08-25 12:10 | RAD ---
Radiograph abdomen one view: 08/25/2020 12:02 PM HISTORY: 24-year-old male status post Dobbhoff feeding tube placement FINDINGS: Dobbhoff feeding tube distal tip is at the medial aspect of the left upper quadrant. Pedicle screws and vertical interlocking rods at lower thoracic spine down to mid lumbar spine. Adama edian vertically oriented array of skin ashley overlying abdomen. Nonobstructive bowel gas pattern. Drainage catheter overlies lumbar spine. IMPRESSION: Dobbhoff feeding tube in proximal stomach.
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
[2020-08-25] MEDS ORDERED: RISPERIDONE MICROSPHERES 25 MG/2 ML IM SCH (17:00)
[2020-08-25] MEDS: Senokot S 8.6-50 MG TAB PO SCH (20:29)
--- NOTE | 2020-08-25 21:01 | RAD ---
XR Abdomen 1 View/KUB History: Dobbhoff tube placement Comparison: Radiograph same day Findings: A weighted feeding tube tip projects over the gastric antrum. Patient is rotated to the lef t. Impression: Radiopaque feeding tube tip projects over the gastric antrum.
[2020-08-25] MEDS: Ondansetron PF 4 MG/2 ML Vial IVP PRN (22:20)
[2020-08-26] MEDS: traMADol HCl 50 MG TAB PO SCH ×5 (00:02→23:21)
[2020-08-26] MEDS: Sodium Chloride 0.9% 1,000 ML IV SCH ×5 (00:04→20:14)
[2020-08-26] MEDS: Dexamethasone 4 MG in Sodium Chloride 0.9% 50 ML IVPB SCH ×5 (00:04→23:29)
[2020-08-26] MEDS: Acetaminophen 500 MG TAB PO SCH ×4 (01:30→20:11)
--- NOTE | 2020-08-26 02:49 | PRG ---
DATE OF SERVICE: 08/25/2020 SUBJECTIVE: The patient was seen during evening rounds, awake, alert, in no distress. The patient yelling out that he wants his Dobhoff removed as he is having pain, and he states that he is not going to stop yelling until it is removed. The patient also repeatedly states that he needs to have a bowel movement, but his legs are together, although they are not. The patient does not move lower extremities. Patient unable to feel lower extremities. The patient does state he can feel but there is no movement noted. Patient was extubated earlier today with no issues. Patient's Praveen Coma scale is 14, -1 for confusion. Urinary output is adequate for patient's age and weight. Vital signs are stable. He remains afebrile. Patient's posterior back LOLLY drain put out 110 mL per dayshift. PLAN: Continue to monitor urinary output. Physical and occupational therapy. If patient remains stable, he will go to the OR tomorrow for repair of his humerus fracture. We will repeat labs in the morning. Job ID: [id number]
[2020-08-26 05:38] LABS: #Lymphocytes 0.8 thou/uL (1.20-3.40); #Monocytes 0.6 thou/uL (0.11-0.59); #Neutrophils 9.1 thou/uL (1.40-6.50); %Basophils 0.1 % (0.0-1.0); %Eosinophils 0.1 % (0.0-10.0); %Lymphocytes 7.5 % (21.0-51.0); %Monocytes 5.3 % (0.0-10.0); Hemoglobin 7.6 g/dL (14.0-18.0); Mean Corpuscular HGB CONC 34.2 g/dL (32.0-36.0); Mean Corpuscular Hemoglobin 30.7 pg (27.0-31.0); Mean Corpuscular Volume 89.8 fL (78.0-98.0); Mean Platelet Volume 9.6 fL (7.4-10.4); Platelet Count 81 thou/uL (130-400); RBC Distribution Width 12.4 % (11.5-14.5); Red Blood Cell (RBC) Count 2.49 mill/uL (4.70-6.10); White Blood Cell (WBC) Count 10.5 thou/uL (4.8-10.8)
[2020-08-26 05:45] LABS: Lactic Acid 0.9 mmol/L (0.5-2.2)
[2020-08-26] MEDS: CEFAZOLIN 2 GM in Premix Bag 1 BAG IVPB SCH ×3 (05:49→22:18)
[2020-08-26 05:56] LABS: Anion Gap 12 mmol/L (10-20); BUN (Urea Nitrogen) 17 mg/dL (8.9-20.6); Calc. Creatinine Clearance 188 mL/min (70-130); Calcium 7.7 mg/dL (7.8-10.44); Carbon Dioxide 22 mmol/L (22-29); Chloride 109 mmol/L (98-107); Estimated GFR-MDRD Greater than 90; Glucose 133 mg/dL (70-105); Phosphorus 1.8 mg/dL (2.3-4.7); Potassium 4.2 mmol/L (3.5-5.1); Sodium 139 mmol/L (136-145)
[2020-08-26] MEDS ORDERED: Sodium Phosphate 30 MMOL in Sodium Chloride 0.9% 250 ML 250 ML IVPB SCH (06:15)
[2020-08-26 06:18] LABS: CK (CPK) 9878 U/L (30-200)
[2020-08-26] MEDS ORDERED: Fentanyl 100 MCG/2 ML VIAL ONE ×3 (07:27→11:26)
[2020-08-26] MEDS ORDERED: Midazolam HCl 2 mg/2 ml Vial ONE (07:27)
[2020-08-26] MEDS: Gabapentin 300 MG CAP PO SCH ×3 (07:54→20:10)
[2020-08-26] MEDS: Senokot S 8.6-50 MG TAB PO SCH ×2 (07:54→20:11)
[2020-08-26] MEDS: Polyethylene Glycol 3350 17 GM Packet PO SCH (07:54)
[2020-08-26] MEDS ORDERED: Lidocaine 1% PF 5 ML VIAL ONE (09:49)
[2020-08-26] MEDS ORDERED: PROPOFOL 200 MG/20 ML VIAL ONE (09:49)
[2020-08-26] MEDS ORDERED: Rocuronium Bromide 10 MG/ML (10ML VIAL) ONE (09:49)
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
[2020-08-26] MEDS: Pantoprazole 40 MG VIAL IVP SCH (11:13)
[2020-08-26] MEDS ORDERED: PROPOFOL 20 ML ONE (11:20)
[2020-08-26] MEDS: Morphine 4 MG/ML VIAL SLOW IVP PRN ×3 (12:09→18:39)
--- NOTE | 2020-08-26 12:24 | OP ---
DATE OF PROCEDURE: 08/26/2020 PROCEDURE PERFORMED: Open reduction and internal fixation of left distal humerus intra-articular fracture. PREOPERATIVE DIAGNOSIS: Left distal humerus intra-articular fracture. POSTOPERATIVE DIAGNOSIS: Left distal humerus intra-articular fracture. COMPLICATIONS: None. ESTIMATED BLOOD LOSS: Minimal. CLOTH SPREADER: Jason Linares MD IMPLANTS: Synthes medial and posterior lateral distal humeral plates were utilized with multiple locking and nonlocking screws. DESCRIPTION OF PROCEDURE: Mr. Younger was identified in the preoperative holding area. His correct extremity was marked. He was carried to the operating room. He was positioned supine. General anesthesia was induced. He was converted to lateral decubitus position. All bony prominences were well padded. At this point, we proceeded to prep and drape the left upper extremity. We then made a posterior approach to the distal humerus. We dissected down through subcutaneous tissues to the triceps fascia. We incised the fascia and exposed the medial and lateral border of the triceps. We developed a plane over the lateral triceps working down to the bony level. We then developed a plane over the medial triceps working down to the ulnar nerve. The ulnar nerve was isolated, and a vessel loop was placed around it. It was protected and fully released. At this point, we worked more deeply down to the bony level on the medial aspect. The joint surface was highly comminuted in multiple fragments. At this point, we decided to perform an olecranon osteotomy. We proceeded with this performing a chevron osteotomy after we placed our guidewire and tapped for a 7.3 mm screw. At this point, we reflected the triceps proximally. We then had good exposure of the distal humerus. We began piecing back together the distal humerus. We started with a medial fragment and held this with reduction forceps and a K-wire. We then placed an interfragmentary screw. We then followed this by reducing our joint surface. The 2 medial and lateral fragments were connected with K-wires and reduction clamps. We used screws as well. We then built this block back onto the distal humerus. We reduced the bone and placed a medial plate followed by a posterior lateral plate. Multiple screws were placed proximally and distally locking the plates to the bone and holding our reduction well. There were several small fragments, which were morselized and placed in the cavity near the olecranon fossa. We checked x-ray images throughout the procedure, confirming that we had an adequate reduction, and there was no articular displacement. The hardware was appropriate. At this point, we completed our instrumentation of the distal humerus. We thoroughly irrigated with copious lavage. We then brought our triceps tendon and osteotomy back down to the olecranon. This was held with a reduction clamp. We then placed our guidewire followed by 7.3 mm screw. The screw was seated appropriately. At this point, we used intraoperative x-ray to evaluate our osteotomy as well as distal humerus, all was acceptable. We thoroughly irrigated once more and closed in layers. The ulnar nerve was transposed to the anterior aspect of the distal humerus. Once we had closure, we provided a well-padded posterior splint and a sling. The patient was taken to the recovery room in good condition. The professional nursing assistant surgeon was responsible for positioning the patient, preparing the injured extremity, applying the tourniquet, and assisting in preparation for surgery. The professional nursing assistant was instrumental in reducing the injured limb by applying traction and reduction maneuvers as well as holding retractors and reduction tools. The professional nursing assistant also was instrumental in assisting in exposure throughout the operation using appropriate retractors. The professional nursing assistant participated in closure of the operative site as well as dressing application and splint application. Job ID: [id number]
[2020-08-26] MEDS: Cyclobenzaprine 10 MG TAB PO PRN (13:16)
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
--- NOTE | 2020-08-27 00:08 | PRG ---
DATE OF SERVICE: 08/26/2020 SUBJECTIVE: Patient was seen in the critical care unit, awake, alert, in no distress. Patient was much more pleasant this evening than he was last night. Patient is postop day zero, status post open reduction internal fixation of the left humerus fracture. Patient voices no complaints or concerns at this time. Patient is tolerating a regular diet. Patient's GCS is 15. Urinary output is adequate for patient's age and weight. OBJECTIVE: VITAL SIGNS: Stable, afebrile. GENERAL: Well-appearing young male, sitting up in bed, in no acute distress. PULMONARY: Equal chest rise and fall, bilateral breath sounds clear, no respiratory distress. CARDIAC: Regular rate regular rhythm. GI: Abdomen is soft, nontender, and nondistended. EXTREMITIES: 2+ pulses in all extremities. Gross motor and sensation intact in bilateral upper extremities. Patient has a splint that is clean, dry, and intact to the right upper extremity. There is no motor or sensation to bilateral lower extremities. PLAN: Unchanged. Continue regular diet as tolerated. Continue normal saline 150 mL an hour for rhabdomyolysis. If patient's chloride continues to increase, we will change patient's IV fluids to lactated Ringer's. We will repeat labs in the morning. Plan was discussed with the patient, who agrees. Job ID: [id number]
[2020-08-27] MEDS: Acetaminophen 500 MG TAB PO SCH ×4 (01:24→21:33)
[2020-08-27] MEDS: Insulin Regular 300 UNITS/3 ML VIAL SC PRN ×2 (01:45→21:33)
[2020-08-27] MEDS: Sodium Chloride 0.9% 1,000 ML IV SCH ×4 (03:11→17:42)
[2020-08-27] MEDS: traMADol HCl 50 MG TAB PO SCH ×3 (04:56→17:41)
[2020-08-27 05:18] LABS: #Lymphocytes 0.6 thou/uL (1.20-3.40); #Monocytes 0.5 thou/uL (0.11-0.59); #Neutrophils 6.8 thou/uL (1.40-6.50); %Eosinophils 0.1 % (0.0-10.0); %Lymphocytes 7.6 % (21.0-51.0); %Monocytes 6.5 % (0.0-10.0); %Neutrophils 85.8 % (42.0-75.0); Hemoglobin 7.1 g/dL (14.0-18.0); Mean Corpuscular HGB CONC 34.7 g/dL (32.0-36.0); Mean Corpuscular Hemoglobin 31.4 pg (27.0-31.0); Mean Corpuscular Volume 90.5 fL (78.0-98.0); Mean Platelet Volume 8.7 fL (7.4-10.4); Platelet Count 69 thou/uL (130-400); Red Blood Cell (RBC) Count 2.25 mill/uL (4.70-6.10)
[2020-08-27 05:37] LABS: Anion Gap 10 mmol/L (10-20); BUN (Urea Nitrogen) 14 mg/dL (8.9-20.6); Calc. Creatinine Clearance 200 mL/min (70-130); Calcium 7.2 mg/dL (7.8-10.44); Carbon Dioxide 25 mmol/L (22-29); Chloride 107 mmol/L (98-107); Estimated GFR-MDRD Greater than 90; Glucose 127 mg/dL (70-105); Magnesium 2.1 mg/dL (1.6-2.6); Potassium 4.1 mmol/L (3.5-5.1); Sodium 138 mmol/L (136-145)
[2020-08-27 05:50] LABS: Phosphorus 1.6 mg/dL (2.3-4.7)
[2020-08-27] MEDS: Dexamethasone 4 MG in Sodium Chloride 0.9% 50 ML IVPB SCH ×3 (05:50→17:40)
[2020-08-27 06:02] LABS: CK (CPK) 10129 U/L (30-200)
[2020-08-27] MEDS: Morphine 4 MG/ML VIAL SLOW IVP PRN ×2 (06:41→10:29)
[2020-08-27] MEDS ORDERED: Sodium Phosphate 30 MMOL in Sodium Chloride 0.9% 250 ML 250 ML IVPB SCH (07:00)
[2020-08-27] MEDS: Ferrous Sulfate 325 MG TAB PO SCH ×2 (07:55→17:40)
[2020-08-27] MEDS: Ascorbic Acid 500 mg Chewable Tablet PO SCH ×2 (08:42→21:33)
[2020-08-27] MEDS: Senokot S 8.6-50 MG TAB PO SCH ×2 (08:42→21:33)
[2020-08-27] MEDS: Gabapentin 300 MG CAP PO SCH ×3 (08:42→21:33)
[2020-08-27] MEDS: Pantoprazole 40 MG VIAL IVP SCH (08:43)
[2020-08-27] MEDS: Polyethylene Glycol 3350 17 GM Packet PO SCH (08:43)
[2020-08-27] MEDS: Cyclobenzaprine 10 MG TAB PO PRN ×2 (08:46→21:33)
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
[2020-08-27] MEDS: Enoxaparin Sodium 30 MG/0.3 ML SYRINGE SC SCH (21:33)
[2020-08-28] MEDS: Sodium Chloride 0.9% 1,000 ML IV SCH ×6 (00:15→21:03)
[2020-08-28] MEDS: Dexamethasone 4 MG in Sodium Chloride 0.9% 50 ML IVPB SCH ×2 (00:16→06:39)
[2020-08-28] MEDS: traMADol HCl 50 MG TAB PO SCH ×5 (00:18→22:53)
--- NOTE | 2020-08-28 02:06 | PRG ---
DATE OF SERVICE: 08/27/2020 SUBJECTIVE: The patient was seen during evening rounds, awake, alert, sitting up in bed, in no acute distress. The patient reports discomfort to his left arm IV site. The patient requesting it be removed as he has a right central line. The patient also reports he feels the need to have a bowel movement, but feels like he may need something more to help him as he feels constipated. The patient's hemoglobin today was 7.1, but he is hemodynamically stable. The patient denies any dizziness or feeling lightheaded. PLAN: Continue current diet and pain regimen. Continue physical and occupational therapy. Continue maintenance IV fluids at 175 an hour as his CK was elevated even more today. We will discontinue left peripheral IV. We will place the patient on lactulose until he has a bowel movement. We will also place the patient on iron and vitamin C for postop anemia. We will repeat labs in the morning. Job ID: [id number]
[2020-08-28] MEDS: Acetaminophen 500 MG TAB PO SCH ×5 (05:46→22:53)
[2020-08-28 05:54] LABS: Anion Gap 13 mmol/L (10-20); BUN (Urea Nitrogen) 15 mg/dL (8.9-20.6); Calc. Creatinine Clearance 204 mL/min (70-130); Calcium 7.8 mg/dL (7.8-10.44); Carbon Dioxide 24 mmol/L (22-29); Chloride 108 mmol/L (98-107); Estimated GFR-MDRD Greater than 90; Glucose 120 mg/dL (70-105); Magnesium 2.1 mg/dL (1.6-2.6); Sodium 141 mmol/L (136-145)
[2020-08-28 06:05] LABS: Phosphorus 1.8 mg/dL (2.3-4.7)
[2020-08-28 06:06] LABS: CK (CPK) 7686 U/L (30-200)
[2020-08-28 06:25] LABS: Band 17 % (5-11); Eosinophils 1 % (0-10); Hemoglobin 7.2 g/dL (14.0-18.0); Lymphocytes 13 % (21-51); MDiff Complete? YES; Mean Corpuscular HGB CONC 33.8 g/dL (32.0-36.0); Mean Corpuscular Hemoglobin 30.6 pg (27.0-31.0); Mean Corpuscular Volume 90.7 fL (78.0-98.0); Mean Platelet Volume 9.1 fL (7.4-10.4); Monocytes 6 % (0-10); Neutrophil 63 % (42-75); Platelet Count 106 thou/uL (130-400); Platelet Morphology Comment Appears Decreased; Red Blood Cell (RBC) Count 2.36 mill/uL (4.70-6.10); White Blood Cell (WBC) Count 10.4 thou/uL (4.8-10.8)
[2020-08-28] MEDS ORDERED: Sodium Phosphate 30 MMOL in Sodium Chloride 0.9% 250 ML 250 ML IVPB SCH (06:45)
[2020-08-28] MEDS ORDERED: Albuterol 200 PUFF (6.7GM INHALER) INH PRN (07:31)
[2020-08-28] MEDS ORDERED: Bisacodyl 10 MG SUPP PR SCH (09:00)
--- NOTE | 2020-08-28 09:23 | RAD ---
PORTABLE CHEST: HISTORY: Shortness of breath. COMPARISON: 08/25/2020. FINDINGS: There is hazy opacification of the left lung base more pronounced than on the prior study. Findings suggest left effusion and left basilar infiltrate and atelectasis. Right lung appears clear. The ET tube and NG Tube have been removed. IMPRESSION: Opacification of the left lung base more pronounced on the current study, some of which may be techni ora. POS: OFF
[2020-08-28] MEDS: Gabapentin 300 MG CAP PO SCH ×3 (09:37→21:01)
[2020-08-28] MEDS: Ascorbic Acid 500 mg Chewable Tablet PO SCH ×2 (09:37→21:01)
[2020-08-28] MEDS: Ferrous Sulfate 325 MG TAB PO SCH ×2 (09:37→18:19)
[2020-08-28] MEDS: Enoxaparin Sodium 30 MG/0.3 ML SYRINGE SC SCH ×2 (09:38→21:01)
[2020-08-28] MEDS: Pantoprazole 40 MG VIAL IVP SCH (09:39)
[2020-08-28] MEDS: Polyethylene Glycol 3350 17 GM Packet PO SCH (11:14)
[2020-08-28] MEDS: Senokot S 8.6-50 MG TAB PO SCH ×2 (11:14→21:01)
[2020-08-28] MEDS: Albuterol 200 PUFF (6.7GM INHALER) INH SCH ×2 (15:04→18:39)
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
[2020-08-28] MEDS: Cyclobenzaprine 10 MG TAB PO PRN (21:07)
[2020-08-28] MEDS ORDERED: Furosemide 20 MG/2 ML VIAL SLOW IVP SCH (21:15)
--- NOTE | 2020-08-28 22:58 | PRG ---
DATE OF SERVICE: 08/28/2020 SUBJECTIVE: The patient was seen during evening rounds, resting comfortably, in no acute distress. The patient arouses easily. The patient does continue to complain of increased testicular swelling and bruising, and also increased swelling to bilateral lower extremities. The patient is currently coughing and using suction to be on to clear mouth. The patient instructed to use his incentive spirometer, but does not cooperate fully with the instructions. The patient is currently requiring oxygen at this time. The patient's blood pressure is a little on the high side. Vital signs are stable and he remains afebrile. Urinary output is adequate for age and weight. The patient had a chest x-ray this morning showing atelectasis and a left pleural effusion. PLAN: Continue to taper Decadron. We will obtain a BNP with morning labs. We will give the patient a dose of Lasix 20 mg x1 IV. Repeat labs in the morning. Continue aggressive pulmonary toilet and pain control. Continue to elevate testicles. Regular diet as tolerated. We will continue maintenance IV fluids. If the patient's CK is decreased tomorrow, we will discontinue maintenance IV fluids. Job ID: [id number]
[2020-08-29] MEDS: Sodium Chloride 0.9% 1,000 ML IV SCH (04:49)
[2020-08-29 05:34] LABS: Band 11 % (5-11); Hemoglobin 7.2 g/dL (14.0-18.0); Lymphocytes 11 % (21-51); MDiff Complete? YES; Mean Corpuscular HGB CONC 33.4 g/dL (32.0-36.0); Mean Corpuscular Hemoglobin 30.1 pg (27.0-31.0); Mean Platelet Volume 8.8 fL (7.4-10.4); Metamyelocyte 2 % (0-0); Monocytes 6 % (0-10); Myelocyte 2 % (0-0); Neutrophil 68 % (42-75); Nucleated RBC 2 % (0); Platelet Count 144 thou/uL (130-400); Polychromasia SLIGHT = 2-3 cells (100X) (0-2/hpf); RBC Distribution Width 12.2 % (11.5-14.5); Red Blood Cell (RBC) Count 2.38 mill/uL (4.70-6.10); White Blood Cell (WBC) Count 14.1 thou/uL (4.8-10.8)
[2020-08-29 05:39] LABS: CK (CPK) 5066 U/L (30-200)
[2020-08-29 05:49] LABS: Anion Gap 10 mmol/L (10-20); BUN (Urea Nitrogen) 22 mg/dL (8.9-20.6); Calc. Creatinine Clearance 207 mL/min (70-130); Calcium 7.8 mg/dL (7.8-10.44); Carbon Dioxide 26 mmol/L (22-29); Chloride 106 mmol/L (98-107); Estimated GFR-MDRD Greater than 90; Glucose 102 mg/dL (70-105); Potassium 3.6 mmol/L (3.5-5.1); Sodium 138 mmol/L (136-145)
[2020-08-29] MEDS: traMADol HCl 50 MG TAB PO SCH ×3 (06:39→18:06)
[2020-08-29] MEDS: Acetaminophen 500 MG TAB PO SCH ×3 (06:39→18:06)
[2020-08-29] MEDS ORDERED: Furosemide 20 MG/2 ML VIAL SLOW IVP SCH (07:00)
[2020-08-29] MEDS ORDERED: Potassium Phosphate 15 MMOL in Sodium Chloride 0.9% 250 ML 250 ML IVPB SCH (09:00)
[2020-08-29] MEDS: Enoxaparin Sodium 30 MG/0.3 ML SYRINGE SC SCH ×2 (09:37→21:25)
[2020-08-29] MEDS: Polyethylene Glycol 3350 17 GM Packet PO SCH (09:37)
[2020-08-29] MEDS: Ferrous Sulfate 325 MG TAB PO SCH ×3 (09:38→21:25)
[2020-08-29] MEDS: Senokot S 8.6-50 MG TAB PO SCH ×2 (09:39→21:25)
[2020-08-29] MEDS: Gabapentin 300 MG CAP PO SCH ×3 (09:39→21:25)
[2020-08-29] MEDS: Cyclobenzaprine 10 MG TAB PO PRN ×2 (09:39→21:25)
[2020-08-29] MEDS: Ascorbic Acid 500 mg Chewable Tablet PO SCH ×2 (09:39→21:25)
[2020-08-29] MEDS: Dexamethasone 4 MG TAB PO SCH (15:58)
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
[2020-08-29] MEDS: Albuterol 200 PUFF (6.7GM INHALER) INH SCH (23:45)
[2020-08-30] MEDS: Acetaminophen 500 MG TAB PO SCH ×4 (00:28→18:43)
[2020-08-30] MEDS: traMADol HCl 50 MG TAB PO SCH ×4 (00:29→18:43)
[2020-08-30] MEDS: Albuterol 200 PUFF (6.7GM INHALER) INH SCH ×4 (01:39→20:59)
[2020-08-30 06:49] LABS: Anion Gap 13 mmol/L (10-20); BUN (Urea Nitrogen) 17 mg/dL (8.9-20.6); CK (CPK) 3629 U/L (30-200); Calc. Creatinine Clearance 204 mL/min (70-130); Calcium 8.8 mg/dL (7.8-10.44); Carbon Dioxide 27 mmol/L (22-29); Chloride 101 mmol/L (98-107); Estimated GFR-MDRD Greater than 90; Glucose 102 mg/dL (70-105); Magnesium 1.8 mg/dL (1.6-2.6); Phosphorus 4.9 mg/dL (2.3-4.7); Potassium 4.2 mmol/L (3.5-5.1); Sodium 137 mmol/L (136-145)
[2020-08-30 08:57] LABS: Hemoglobin 9.4 g/dL (14.0-18.0); Mean Corpuscular Hemoglobin 31.1 pg (27.0-31.0); Mean Corpuscular Volume 91.3 fL (78.0-98.0); Mean Platelet Volume 8.2 fL (7.4-10.4); Platelet Count 213 thou/uL (130-400); RBC Distribution Width 12.8 % (11.5-14.5); Red Blood Cell (RBC) Count 3.02 mill/uL (4.70-6.10); White Blood Cell (WBC) Count 24.5 thou/uL (4.8-10.8)
[2020-08-30 09:25] LABS: Band 7 % (5-11); Eosinophils 1 % (0-10); Lymphocytes 12 % (21-51); MDiff Complete? YES; Metamyelocyte 12 % (0-0); Monocytes 4 % (0-10); Myelocyte 7 % (0-0); Neutrophil 57 % (42-75); Nucleated RBC 2 % (0); Platelet Morphology Comment Appears Adequate; RBC Morphology Normal
[2020-08-30] MEDS: Enoxaparin Sodium 30 MG/0.3 ML SYRINGE SC SCH ×2 (09:57→21:00)
[2020-08-30] MEDS: Polyethylene Glycol 3350 17 GM Packet PO SCH (09:57)
[2020-08-30] MEDS: Gabapentin 300 MG CAP PO SCH ×3 (09:57→21:00)
[2020-08-30] MEDS: Dexamethasone 4 MG TAB PO SCH ×2 (09:58→15:34)
[2020-08-30] MEDS: Ascorbic Acid 500 mg Chewable Tablet PO SCH ×2 (09:58→21:00)
[2020-08-30] MEDS: Senokot S 8.6-50 MG TAB PO SCH ×2 (09:58→21:00)
[2020-08-30] MEDS: Ferrous Sulfate 325 MG TAB PO SCH ×2 (09:58→21:00)
--- NOTE | 2020-08-30 13:49 | RAD ---
Frontal radiograph chest: 08/30/2020 COMPARISON: 08/28/2020 HISTORY: Elevated white blood cell count FINDINGS: No pneumothorax is evident. There is a right-sided vascular catheter with distal tip overly ing the region of the right atrium. Incompletely imaged thoracolumbar spine hardware present. There is dense opacity in the left base obscured the left hemidiaphragm suggesting left lower lobe consolid ation/collapse. This could be on the basis of left basilar infectious pneumonitis or aspiration. IMPRESSION: Dense opacity in the left lung base.
[2020-08-30 14:46] LABS: Bacteria/HPF None Seen HPF (None Seen); Bilirubin Negative (Negative); Blood, Urine Negative (Negative); Clarity Clear (Clear); Glucose, Urine (Dipstick) Normal (Negative); Ketone, Urine Negative (Negative); Leukocyte Negative Leu/uL (Negative); Nitrite Negative (Negative); Protein, Urine (Dipstick) Negative (Neg-Trace); RBC/HPF 0-3 HPF (0-3); Squamous Epithelial None Seen HPF (0-3); Urobilinogen Normal mg/dL (Less than 2); WBC/HPF 0-3 HPF (0-3); pH, Urine 7.5 (5.0-9.0)
[2020-08-30 14:48] LABS: Urine Culture Reflex No No
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
[2020-08-31] MEDS: Acetaminophen 500 MG TAB PO SCH ×4 (00:03→17:59)
[2020-08-31] MEDS: traMADol HCl 50 MG TAB PO SCH ×4 (00:03→17:59)
[2020-08-31] MEDS: Albuterol 200 PUFF (6.7GM INHALER) INH SCH ×4 (02:51→20:00)
[2020-08-31 06:20] LABS: Hemoglobin 10.3 g/dL (14.0-18.0); Mean Corpuscular HGB CONC 34.2 g/dL (32.0-36.0); Mean Corpuscular Hemoglobin 30.9 pg (27.0-31.0); Mean Corpuscular Volume 90.4 fL (78.0-98.0); Platelet Count 290 thou/uL (130-400); RBC Distribution Width 13.6 % (11.5-14.5); Red Blood Cell (RBC) Count 3.34 mill/uL (4.70-6.10)
[2020-08-31 06:40] LABS: Anion Gap 13 mmol/L (10-20); BUN (Urea Nitrogen) 19 mg/dL (8.9-20.6); Band 12 % (5-11); Calc. Creatinine Clearance 211 mL/min (70-130); Calcium 8.6 mg/dL (7.8-10.44); Carbon Dioxide 27 mmol/L (22-29); Chloride 99 mmol/L (98-107); Eosinophils 1 % (0-10); Estimated GFR-MDRD Greater than 90; Glucose 106 mg/dL (70-105); Lymphocytes 15 % (21-51); MDiff Complete? YES; Magnesium 2.1 mg/dL (1.6-2.6); Metamyelocyte 3 % (0-0); Myelocyte 9 % (0-0); Neutrophil 60 % (42-75); Phosphorus 4.1 mg/dL (2.3-4.7); Polychromasia SLIGHT = 2-3 cells (100X) (0-2/hpf); Potassium 4.7 mmol/L (3.5-5.1); Sodium 134 mmol/L (136-145); White Blood Cell (WBC) Count 25.4 thou/uL (4.8-10.8)
[2020-08-31] MEDS: Senokot S 8.6-50 MG TAB PO SCH ×2 (09:24→21:37)
[2020-08-31] MEDS: Bisacodyl 10 MG SUPP PR SCH (09:24)
[2020-08-31] MEDS: Gabapentin 300 MG CAP PO SCH ×3 (09:24→21:37)
[2020-08-31] MEDS: Ascorbic Acid 500 mg Chewable Tablet PO SCH ×2 (09:24→21:37)
[2020-08-31] MEDS: Dexamethasone 4 MG TAB PO SCH ×2 (09:24→17:59)
[2020-08-31] MEDS: Polyethylene Glycol 3350 17 GM Packet PO SCH (09:24)
[2020-08-31] MEDS: Ferrous Sulfate 325 MG TAB PO SCH ×2 (09:24→21:37)
[2020-08-31] MEDS: Enoxaparin Sodium 30 MG/0.3 ML SYRINGE SC SCH ×2 (09:24→21:37)
[2020-08-31] MEDS ORDERED: FLU VACC QS2020-21(6MOS UP)/PF 60 MCG/0.5 ML SYRINGE IM ONE (10:00)
--- NOTE | 2020-08-31 10:19 | RAD ---
PORTABLE CHEST: Date: 08/31/2020 HISTORY: Follow-up. COMPARISON: 08/30/2020. FINDINGS: There continues to be opacification of the left lung base obscuring the hemidiaphragm consistent with left basilar atelectasis and/or consolidation. Lungs otherwise aerated and clear. Central line unchanged. No interval change apparent. IMPRESSION: Continued left basilar opacification which appears stable. POS: AH
[2020-08-31] MEDS: CEFAZOLIN 2 GM in Premix Bag 1 BAG IVPB SCH ×2 (12:40→19:29)
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
[2020-09-01] MEDS: traMADol HCl 50 MG TAB PO SCH ×5 (00:05→23:57)
[2020-09-01] MEDS: CEFAZOLIN 2 GM in Premix Bag 1 BAG IVPB SCH ×3 (00:05→17:06)
[2020-09-01] MEDS: Acetaminophen 500 MG TAB PO SCH ×5 (00:05→23:57)
[2020-09-01] MEDS: Albuterol 200 PUFF (6.7GM INHALER) INH SCH ×4 (04:13→18:26)
[2020-09-01] MEDS ORDERED: Dexamethasone 1 MG TAB PO SCH (08:00)
[2020-09-01] MEDS: Polyethylene Glycol 3350 17 GM Packet PO SCH ×2 (09:26→10:12)
[2020-09-01] MEDS: Ferrous Sulfate 325 MG TAB PO SCH ×3 (09:26→21:35)
[2020-09-01] MEDS: Ascorbic Acid 500 mg Chewable Tablet PO SCH ×3 (09:26→21:35)
[2020-09-01] MEDS: Bisacodyl 10 MG SUPP PR SCH (09:26)
[2020-09-01] MEDS: Senokot S 8.6-50 MG TAB PO SCH ×3 (09:26→21:34)
[2020-09-01] MEDS: Enoxaparin Sodium 30 MG/0.3 ML SYRINGE SC SCH ×2 (09:26→21:34)
[2020-09-01] MEDS: Gabapentin 300 MG CAP PO SCH ×4 (09:27→21:35)
[2020-09-01] MEDS ORDERED: Prevnar 13-Val Conj/PF 0.5 ML SYRINGE IM ONE (10:00)
[2020-09-01] MEDS: Cyclobenzaprine 10 MG TAB PO PRN (18:00)
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
[2020-09-02] MEDS: Albuterol 200 PUFF (6.7GM INHALER) INH SCH ×4 (02:26→19:57)
[2020-09-02] MEDS: Cyclobenzaprine 10 MG TAB PO PRN ×2 (02:55→19:57)
[2020-09-02] MEDS: traMADol HCl 50 MG TAB PO SCH ×5 (05:37→23:06)
[2020-09-02] MEDS: Acetaminophen 500 MG TAB PO SCH ×4 (05:37→23:06)
[2020-09-02 06:34] LABS: Anion Gap 11 mmol/L (10-20); BUN (Urea Nitrogen) 28 mg/dL (8.9-20.6); Band 8 % (5-11); CK (CPK) 515 U/L (30-200); Calc. Creatinine Clearance 182 mL/min (70-130); Calcium 8.6 mg/dL (7.8-10.44); Carbon Dioxide 26 mmol/L (22-29); Chloride 97 mmol/L (98-107); Estimated GFR-MDRD Greater than 90; Glucose 96 mg/dL (70-105); Hemoglobin 11.5 g/dL (14.0-18.0); Hypochromia SLIGHT = 6-15 cells (100X) (0-5/hpf); Lymphocytes 10 % (21-51); MDiff Complete? YES; Magnesium 2.1 mg/dL (1.6-2.6); Mean Corpuscular HGB CONC 33.4 g/dL (32.0-36.0); Mean Corpuscular Hemoglobin 30.8 pg (27.0-31.0); Mean Corpuscular Volume 92.5 fL (78.0-98.0); Mean Platelet Volume 7.2 fL (7.4-10.4); Monocytes 12 % (0-10); Neutrophil 70 % (42-75); Platelet Count 250 thou/uL (130-400); Platelet Morphology Comment Appears Adequate; Potassium 4.4 mmol/L (3.5-5.1); RBC Distribution Width 14.2 % (11.5-14.5); Red Blood Cell (RBC) Count 3.73 mill/uL (4.70-6.10); Sodium 130 mmol/L (136-145); White Blood Cell (WBC) Count 25.1 thou/uL (4.8-10.8)
--- NOTE | 2020-09-02 09:06 | RAD ---
PORTABLE CHEST: HISTORY: Followup infiltrate. COMPARISON: 08/31/2020. FINDINGS: Streaky infiltrate and/or atelectasis in the left lung base is again seen. Right lung remains clear. IMPRESSION: Persistent left basilar infiltrate and atelectasis. POS: AGW
[2020-09-02] MEDS: Ascorbic Acid 500 mg Chewable Tablet PO SCH ×2 (09:20→19:57)
[2020-09-02] MEDS: Enoxaparin Sodium 30 MG/0.3 ML SYRINGE SC SCH ×2 (09:20→19:58)
[2020-09-02] MEDS: Ferrous Sulfate 325 MG TAB PO SCH ×2 (09:21→19:57)
[2020-09-02] MEDS: Gabapentin 300 MG CAP PO SCH ×3 (09:21→19:56)
[2020-09-02] MEDS: Polyethylene Glycol 3350 17 GM Packet PO SCH (09:23)
[2020-09-02] MEDS: Senokot S 8.6-50 MG TAB PO SCH ×2 (09:26→19:56)
[2020-09-02] MEDS ORDERED: Meningococcal Vaccine 0.5ML VIAL (MENACTRA) IM ONE (10:00)
[2020-09-02] MEDS ORDERED: Iopamidol-370 76% 500 ML 1 ML ONE (10:03)
[2020-09-02] MEDS: Bisacodyl 10 MG SUPP PR SCH (14:20)
[2020-09-02] MEDS ORDERED: Calcium Carbonate 500 MG ChewTAB PO PRN (14:51)
[2020-09-02] MEDS: oxyCODONE 5 MG TAB PO PRN ×2 (14:53→23:06)
[2020-09-02] MEDS ORDERED: Diazepam 5 MG TAB PO SCH (15:00)
--- NOTE | 2020-09-02 15:31 | RAD ---
PORTABLE CHEST: 09/02/20 HISTORY: Chest pain. COMPARISON: 09/02/20 film at 7:39 a.m. There are linear atelectasis and/or infiltrate in the left lung base is stable. The central line is u nchanged with tip overlying the right atrium. No pneumothorax or other acute lung process. IMPRESSION: Stable chest. POS: AGW
[2020-09-02 16:56] LABS: Hemoglobin 12.2 g/dL (14.0-18.0); Mean Corpuscular HGB CONC 34.6 g/dL (32.0-36.0); Mean Corpuscular Hemoglobin 31.5 pg (27.0-31.0); Mean Corpuscular Volume 90.9 fL (78.0-98.0); Mean Platelet Volume 7.6 fL (7.4-10.4); Platelet Count 275 thou/uL (130-400); RBC Distribution Width 13.9 % (11.5-14.5); Red Blood Cell (RBC) Count 3.88 mill/uL (4.70-6.10); White Blood Cell (WBC) Count 24.3 thou/uL (4.8-10.8)
[2020-09-02 17:06] LABS: Lactic Acid 2.4 mmol/L (0.5-2.2)
[2020-09-02 17:13] LABS: Anion Gap 16 mmol/L (10-20); BUN (Urea Nitrogen) 27 mg/dL (8.9-20.6); Calc. Creatinine Clearance 175 mL/min (70-130); Calcium 8.8 mg/dL (7.8-10.44); Carbon Dioxide 24 mmol/L (22-29); Chloride 95 mmol/L (98-107); Estimated GFR-MDRD Greater than 90; Glucose 118 mg/dL (70-105); Magnesium 2.2 mg/dL (1.6-2.6); Phosphorus 3.6 mg/dL (2.3-4.7); Potassium 4.6 mmol/L (3.5-5.1); Sodium 130 mmol/L (136-145)
[2020-09-02 17:16] LABS: Band 9 % (5-11); Eosinophils 1 % (0-10); Lymphocytes 3 % (21-51); MDiff Complete? YES; Metamyelocyte 4 % (0-0); Monocytes 6 % (0-10); Myelocyte 4 % (0-0); Neutrophil 73 % (42-75); Platelet Morphology Comment Appears Adequate; Polychromasia SLIGHT = 2-3 cells (100X) (0-2/hpf); Toxic Granulation SLIGHT
[2020-09-02] MEDS: Mag-Al 1200 mg/1200 mg/30 ML UDCUP PO SCH ×2 (17:20→19:57)
--- NOTE | 2020-09-02 17:24 | CT ---
CT angiogram of the chest: 09/02/2020 HISTORY: Evaluate for pulmonary arterial embolism, Covid positive patient TECHNIQUE: Axial CT imaging obtained at 2.5 mm intervals through the chest with IV contrast using CT angiogram protocol. Coronal and sagittal 3-D reformatted imaging obtained. FINDINGS: No axillary, mediastinal, or hilar lymphadenopathy is noted. A right upper extremity vascular catheter extends into the region of the right atrium. There is no pneumothorax evident on either side. No significant pleural, pericardial, or mediastinal fluid is seen. There is nonspecific patchy areas of pulmonary parenchymal opacity/partial consolidation involving th e inferior posterior aspect of both lower lobes, left greater than right. The upper abdomen is only partially imaged on this examination and better assessed on dedicated CT of the abdomen/pelvis also performed 09/02/2020. There is mild wall prominence of the distal esophagus, a nonspecific finding. Review of the pulmonary arterial vasculature demonstrates no evidence for a filling defect within the pulmonary arterial trunk or either main pulmonary artery. Motion artifact slightly limits detailed assessment of the distal pulmonary arterial branches supplying both lower lobes. There is a filling d efect involving a segmental pulmonary arterial range supplying the right lower lobe, best seen on axial image 61 consistent with pulmonary arterial embolism. Inferior and medial to this is thrombus w ithin multiple subsegmental pulmonary arterial branches supplying the right lower lobe. There is a segmental pulmonary arterial embolism within the left perihilar region on axial image 50 and a probab le subtle filling defect within the lobar pulmonary artery supplying the left lower lobe on axial image 52. Heterogeneity of a partially imaged spleen suggests areas of laceration and/or infarction. Metallic c lips are seen near the pancreatic body, only partially imaged. Review of the osseous structures demonstrates nondisplaced multifocal sternal fracture with a superior and inferior sternal fracture. Anterior wedge compression fracture of the T7 and T8 vertebral bodies noted. There is a medial left first rib fracture noted. Impression: Findings suggesting bilateral distal pulmonary arterial emboli, right more prominent than left. Nonspecific multifocal posterior/inferior bilateral lower lobe consolidation. Multiple fracture deformities as detailed above. Results sent to Nino Saini via [employer] at 5:20 PM 09/02/2020
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
[2020-09-02 18:04] LABS: Actual Bicarbonate (HCO3a) 23.3 mEq/L (22-28); Base Excess (BEa) -0.1 mEq/L (-2.0 to +3.0); CO2 Tension 34.1 mmHg (35.0-45.0); Calcium, Ionized (arterial) 1.09 mmol/L (1.12-1.30); Hemoglobin (Hb) 11.8 g/dL (14.0-18.0); O2 Tension (PaO2), arterial 67.6 mmHg (80.0-100.0); Potassium - ABG Lab 4.24 mmol/L (3.70-5.30); pH, Arterial 7.45 (7.35-7.45)
--- NOTE | 2020-09-02 18:04 | CT ---
CT ABDOMEN AND PELVIS WITH IV CONTRAST: 09/02/20 INDICATIONS: COVID positive. Paraplegic. Abdominal pain. Post trauma. COMPARISON: Comparison made to recent CT abdomen and pelvis 08/24/20 which described splenic hematomas, numerous c omminuted pelvic fractures and sacral fractures with a burst fracture at L1. FINDINGS: The intraparenchymal hematomas involving the spleen are again seen. These are more numerous today. Th e largest is again seen extending to the posterior margin and measuring 3.5 cm. No significant subcap sular blood and no free blood around the spleen seen. The liver remains intact and unremarkable. The gallbladder is distended. Stomach and duodenum unremarkable. Pancreas unremarkable. Kidneys unremarkable. Small bowel loops normal caliber. Colon unremarkable. Abdominal aorta unremarka ble. Images through the pelvis again show pelvic hematomas involving the musculature of the pelvis. There is a persistent hematoma in the right lower pelvis which involves the right piriformis. The comminute d sacral and pelvic fractures again noted. Review of the spine reveals postoperative changes. Pedicle screws are now seen at the T11-T12 level a nd at the L2 and L3 level transfixing the L1 burst fracture. The retropulsion at L1 is again noted. T here are postop laminectomy changes now present. Soft tissues show subcutaneous density in the subcutaneous adipose tissue of the left lower quadrant just above the iliac wing which suggests contusion. IMPRESSION: 1. Numerous intraparenchymal splenic hematomas are now seen. 2. No evidence of free fluid or blood in the abdomen or pelvis. 3. Pelvic hematoma associated with the pelvic fractures are again seen with a hematoma involving the right piriformis and hematoma in the floor of the pelvis on the right. 4. No acute intra-abdominal process. 5. Fractures in the pelvis and postoperative changes in the spine are noted as described above. POS: AGW
[2020-09-02 18:24] LABS: ALV-art Gradient 39.505 mmHg (0-20); Puncture Site R RADIAL
[2020-09-02] MEDS ORDERED: Lactated Ringer's 1,000 ML IV SCH (19:00)
[2020-09-02] MEDS ORDERED: Enoxaparin Sodium 80 MG/0.8 ML SYRINGE SC SCH (19:00)
[2020-09-02] MEDS: Vancomycin HCl 1.25 GM in Sodium Chloride 0.9% 250 ML 300 ML IVPB SCH (19:54)
[2020-09-02] MEDS ORDERED: Oxazepam 10 MG CAP PO SCH (21:00)
[2020-09-03] MEDS: Albuterol 200 PUFF (6.7GM INHALER) INH SCH ×4 (01:25→21:25)
[2020-09-03] MEDS: oxyCODONE 5 MG TAB PO PRN (03:00)
[2020-09-03] MEDS: Acetaminophen 500 MG TAB PO SCH ×3 (05:06→17:51)
[2020-09-03] MEDS: traMADol HCl 50 MG TAB PO SCH ×3 (05:06→17:52)
[2020-09-03 06:24] LABS: Band 9 % (5-11); Hemoglobin 10.8 g/dL (14.0-18.0); Lymphocytes 10 % (21-51); MDiff Complete? YES; Mean Corpuscular Hemoglobin 31.3 pg (27.0-31.0); Mean Corpuscular Volume 92.2 fL (78.0-98.0); Mean Platelet Volume 7.3 fL (7.4-10.4); Metamyelocyte 1 % (0-0); Monocytes 4 % (0-10); Neutrophil 75 % (42-75); Platelet Count 216 thou/uL (130-400); Platelet Morphology Comment Appears Adequate; RBC Distribution Width 13.9 % (11.5-14.5); RBC Morphology Normal; Reactive Lymphocytes 1 % (0-10); Red Blood Cell (RBC) Count 3.45 mill/uL (4.70-6.10); White Blood Cell (WBC) Count 17.7 thou/uL (4.8-10.8)
[2020-09-03 06:27] LABS: Anion Gap 11 mmol/L (10-20); BUN (Urea Nitrogen) 25 mg/dL (8.9-20.6); Calc. Creatinine Clearance 191 mL/min (70-130); Calcium 8.5 mg/dL (7.8-10.44); Carbon Dioxide 28 mmol/L (22-29); Chloride 95 mmol/L (98-107); Estimated GFR-MDRD Greater than 90; Glucose 95 mg/dL (70-105); Magnesium 2.3 mg/dL (1.6-2.6); Phosphorus 3.1 mg/dL (2.3-4.7); Potassium 4.6 mmol/L (3.5-5.1); Sodium 129 mmol/L (136-145)
[2020-09-03] MEDS: Ondansetron PF 4 MG/2 ML Vial IVP PRN (06:27)
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
[2020-09-03] MEDS ORDERED: Dexamethasone 1 MG TAB PO SCH (08:00)
[2020-09-03] MEDS: Mag-Al 1200 mg/1200 mg/30 ML UDCUP PO SCH ×5 (09:18→21:09)
[2020-09-03] MEDS: Enoxaparin Sodium 80 MG/0.8 ML SYRINGE SC SCH ×2 (09:18→21:09)
[2020-09-03] MEDS: Polyethylene Glycol 3350 17 GM Packet PO SCH ×2 (09:19→09:20)
[2020-09-03] MEDS: Ferrous Sulfate 325 MG TAB PO SCH ×2 (09:19→21:09)
[2020-09-03] MEDS: Bisacodyl 10 MG SUPP PR SCH ×2 (09:19→09:20)
[2020-09-03] MEDS: Ascorbic Acid 500 mg Chewable Tablet PO SCH ×2 (09:19→21:10)
[2020-09-03] MEDS: Vancomycin HCl 1.25 GM in Sodium Chloride 0.9% 250 ML 300 ML IVPB SCH ×3 (09:20→21:25)
[2020-09-03] MEDS: Gabapentin 300 MG CAP PO SCH ×3 (09:20→21:10)
[2020-09-03] MEDS: Senokot S 8.6-50 MG TAB PO SCH ×2 (09:20→21:09)
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
[2020-09-03] MEDS: Cyclobenzaprine 10 MG TAB PO PRN (21:12)
[2020-09-03] MEDS: Vancomycin HCl 1.25 GM in Sodium Chloride 0.9% 250 ML 250 ML IVPB SCH (21:25)
[2020-09-04] MEDS: Acetaminophen 500 MG TAB PO SCH ×4 (00:22→17:13)
[2020-09-04] MEDS: traMADol HCl 50 MG TAB PO SCH ×4 (00:22→17:13)
[2020-09-04] MEDS: Albuterol 200 PUFF (6.7GM INHALER) INH SCH ×4 (00:23→21:18)
[2020-09-04 06:20] LABS: #Eosinphils 0.1 thou/uL (0.0-0.7); #Lymphocytes 1.5 thou/uL (1.20-3.40); #Monocytes 0.8 thou/uL (0.11-0.59); #Neutrophils 12.9 thou/uL (1.40-6.50); %Basophils 0.1 % (0.0-1.0); %Eosinophils 0.5 % (0.0-10.0); %Lymphocytes 9.7 % (21.0-51.0); %Monocytes 5.4 % (0.0-10.0); %Neutrophils 84.3 % (42.0-75.0); Mean Corpuscular HGB CONC 34.3 g/dL (32.0-36.0); Mean Corpuscular Hemoglobin 31.6 pg (27.0-31.0); Mean Corpuscular Volume 92.2 fL (78.0-98.0); Mean Platelet Volume 7.4 fL (7.4-10.4); Platelet Count 223 thou/uL (130-400); RBC Distribution Width 13.7 % (11.5-14.5); Red Blood Cell (RBC) Count 3.17 mill/uL (4.70-6.10); White Blood Cell (WBC) Count 15.3 thou/uL (4.8-10.8)
[2020-09-04 06:38] LABS: Anion Gap 11 mmol/L (10-20); BUN (Urea Nitrogen) 17 mg/dL (8.9-20.6); Calc. Creatinine Clearance 214 mL/min (70-130); Calcium 8.4 mg/dL (7.8-10.44); Carbon Dioxide 27 mmol/L (22-29); Chloride 95 mmol/L (98-107); Estimated GFR-MDRD Greater than 90; Glucose 96 mg/dL (70-105); Phosphorus 3.2 mg/dL (2.3-4.7); Sodium 129 mmol/L (136-145)
[2020-09-04] MEDS: Vancomycin HCl 1.25 GM in Sodium Chloride 0.9% 250 ML 250 ML IVPB SCH ×2 (09:20→21:19)
[2020-09-04] MEDS: Senokot S 8.6-50 MG TAB PO SCH ×2 (09:20→21:17)
[2020-09-04] MEDS: Enoxaparin Sodium 80 MG/0.8 ML SYRINGE SC SCH ×2 (09:20→21:18)
[2020-09-04] MEDS: Ferrous Sulfate 325 MG TAB PO SCH ×2 (09:21→21:17)
[2020-09-04] MEDS: Gabapentin 300 MG CAP PO SCH ×3 (09:21→21:17)
[2020-09-04] MEDS: Mag-Al 1200 mg/1200 mg/30 ML UDCUP PO SCH ×4 (09:21→21:17)
[2020-09-04] MEDS: Ascorbic Acid 500 mg Chewable Tablet PO SCH ×2 (09:21→21:17)
[2020-09-04] MEDS: Polyethylene Glycol 3350 17 GM Packet PO SCH (09:44)
[2020-09-04] MEDS: Bisacodyl 10 MG SUPP PR SCH (09:45)
[2020-09-04] MEDS ORDERED: Acthib 0.5 ML VIAL IM ONE (12:00)
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
[2020-09-04] MEDS: guaiFENesin ER 600 MG TAB PO SCH (21:17)
[2020-09-04] MEDS: Cyclobenzaprine 10 MG TAB PO PRN (21:17)
[2020-09-05] MEDS: Acetaminophen 500 MG TAB PO SCH ×5 (00:46→23:17)
[2020-09-05] MEDS: traMADol HCl 50 MG TAB PO SCH ×5 (00:46→23:17)
[2020-09-05] MEDS: Albuterol 200 PUFF (6.7GM INHALER) INH SCH ×4 (00:46→22:12)
[2020-09-05] MEDS: Vancomycin HCl 1.25 GM in Sodium Chloride 0.9% 250 ML 250 ML IVPB SCH ×2 (08:15→21:15)
[2020-09-05] MEDS: Polyethylene Glycol 3350 17 GM Packet PO SCH (08:15)
[2020-09-05] MEDS: Mag-Al 1200 mg/1200 mg/30 ML UDCUP PO SCH ×4 (08:15→21:16)
[2020-09-05] MEDS: Ascorbic Acid 500 mg Chewable Tablet PO SCH ×2 (08:16→21:15)
[2020-09-05] MEDS: guaiFENesin ER 600 MG TAB PO SCH ×2 (08:16→21:15)
[2020-09-05] MEDS: Ferrous Sulfate 325 MG TAB PO SCH ×2 (08:17→21:15)
[2020-09-05] MEDS: Gabapentin 300 MG CAP PO SCH ×3 (08:17→21:15)
[2020-09-05] MEDS: Senokot S 8.6-50 MG TAB PO SCH ×2 (08:17→21:15)
[2020-09-05] MEDS: Bisacodyl 10 MG SUPP PR SCH (08:18)
[2020-09-05] MEDS: Enoxaparin Sodium 80 MG/0.8 ML SYRINGE SC SCH ×2 (08:22→21:15)
[2020-09-05] MEDS: oxyCODONE 5 MG TAB PO PRN (08:37)
[2020-09-05] MEDS: Sodium Chloride 1 GM TAB PO SCH ×2 (09:36→21:15)
[2020-09-05 11:59] LABS: Anion Gap 10 mmol/L (10-20); BUN (Urea Nitrogen) 15 mg/dL (8.9-20.6); Calc. Creatinine Clearance 231 mL/min (70-130); Calcium 8.1 mg/dL (7.8-10.44); Carbon Dioxide 27 mmol/L (22-29); Chloride 95 mmol/L (98-107); Estimated GFR-MDRD Greater than 90; Glucose 123 mg/dL (70-105); Magnesium 1.9 mg/dL (1.6-2.6); Phosphorus 2.5 mg/dL (2.3-4.7); Sodium 128 mmol/L (136-145)
[2020-09-05 20:44] LABS: Vancomycin, Trough 3.2 ug/mL
[2020-09-05] MEDS: Cyclobenzaprine 10 MG TAB PO PRN (21:15)
[2020-09-06] MEDS: Vancomycin HCl 1.25 GM in Sodium Chloride 0.9% 250 ML 250 ML IVPB SCH ×3 (05:19→21:14)
[2020-09-06] MEDS: Acetaminophen 500 MG TAB PO SCH ×4 (05:20→23:54)
[2020-09-06] MEDS: traMADol HCl 50 MG TAB PO SCH ×4 (05:20→23:54)
[2020-09-06] MEDS: Albuterol 200 PUFF (6.7GM INHALER) INH SCH ×4 (07:47→18:31)
[2020-09-06] MEDS: Bisacodyl 10 MG SUPP PR SCH (09:22)
[2020-09-06] MEDS: Polyethylene Glycol 3350 17 GM Packet PO SCH (09:22)
[2020-09-06] MEDS: guaiFENesin ER 600 MG TAB PO SCH ×2 (09:22→21:14)
[2020-09-06] MEDS: Senokot S 8.6-50 MG TAB PO SCH ×2 (09:22→21:14)
[2020-09-06] MEDS: Enoxaparin Sodium 80 MG/0.8 ML SYRINGE SC SCH ×2 (09:22→21:13)
[2020-09-06] MEDS: Gabapentin 300 MG CAP PO SCH ×3 (09:22→21:14)
[2020-09-06] MEDS: Mag-Al 1200 mg/1200 mg/30 ML UDCUP PO SCH ×4 (09:22→21:14)
[2020-09-06] MEDS: Sodium Chloride 1 GM TAB PO SCH ×2 (09:22→21:14)
[2020-09-06] MEDS: Ferrous Sulfate 325 MG TAB PO SCH ×2 (09:23→21:14)
[2020-09-06] MEDS: Ascorbic Acid 500 mg Chewable Tablet PO SCH ×2 (09:23→21:14)
[2020-09-06 09:40] LABS: #Eosinphils 0.2 thou/uL (0.0-0.7); #Lymphocytes 1.3 thou/uL (1.20-3.40); #Monocytes 0.8 thou/uL (0.11-0.59); #Neutrophils 7.6 thou/uL (1.40-6.50); %Basophils 0.1 % (0.0-1.0); %Eosinophils 1.9 % (0.0-10.0); %Lymphocytes 13.3 % (21.0-51.0); %Monocytes 7.9 % (0.0-10.0); %Neutrophils 76.9 % (42.0-75.0); Hemoglobin 8.7 g/dL (14.0-18.0); Mean Corpuscular HGB CONC 32.8 g/dL (32.0-36.0); Mean Corpuscular Hemoglobin 30.9 pg (27.0-31.0); Mean Corpuscular Volume 94.3 fL (78.0-98.0); Mean Platelet Volume 6.5 fL (7.4-10.4); Platelet Count 269 thou/uL (130-400); RBC Distribution Width 13.4 % (11.5-14.5); Red Blood Cell (RBC) Count 2.82 mill/uL (4.70-6.10)
[2020-09-06 09:59] LABS: Anion Gap 12 mmol/L (10-20); BUN (Urea Nitrogen) 15 mg/dL (8.9-20.6); Calc. Creatinine Clearance 235 mL/min (70-130); Carbon Dioxide 24 mmol/L (22-29); Chloride 98 mmol/L (98-107); Estimated GFR-MDRD Greater than 90; Glucose 97 mg/dL (70-105); Magnesium 1.9 mg/dL (1.6-2.6); Phosphorus 2.9 mg/dL (2.3-4.7); Potassium 3.8 mmol/L (3.5-5.1); Sodium 130 mmol/L (136-145)
--- NOTE | 2020-09-06 10:26 | ULT ---
EXAM: Bilateral lower extremity venous ultrasound HISTORY: Pulmonary emboli. New paraplegic. COMPARISON: None TECHNIQUE: Multiplanar grayscale and color Doppler images were obtained in a bilateral lower extremit y venous ultrasound. Spectral analysis of the Doppler waveforms were performed. FINDINGS: The bilateral common femoral vein, profunda femoral veins, superficial femoral veins, and p opliteal veins are normal in appearance without visible thrombus. These vessels demonstrate normal compression, flow, and augmentation. The bilateral posterior tibial veins and greater saphenous veins are patent without evidence of throm bus. IMPRESSION: No evidence of DVT.
[2020-09-06] MEDS: Ibuprofen 800 MG TAB PO PRN (13:04)
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
--- NOTE | 2020-09-06 17:23 | EKG ---
Test Reason : Blood Pressure : / mmHG Vent. Rate : 103 BPM Atrial Rate : 103 BPM P-R Int : 116 ms QRS Dur : 088 ms QT Int : 332 ms P-R-T Axes : 071 022 043 degrees QTc Int : 434 ms Sinus tachycardia Otherwise normal ECG When compared with ECG of 02-SEP-2020 15:07, (Unconfirmed) No significant change was found Confirmed by FITO BOCANEGRA ([id number]) on 09/06/2020 5:23:08 PM Referred By: JEREMY SOSA Confirmed By:FITO BOCANEGRA
[2020-09-06] MEDS: Cyclobenzaprine 10 MG TAB PO PRN (21:14)
[2020-09-07] MEDS: Albuterol 200 PUFF (6.7GM INHALER) INH SCH ×4 (03:36→18:18)
[2020-09-07] MEDS: Acetaminophen 500 MG TAB PO SCH ×3 (05:50→17:20)
[2020-09-07] MEDS: Vancomycin HCl 1.25 GM in Sodium Chloride 0.9% 250 ML 250 ML IVPB SCH (05:50)
[2020-09-07] MEDS: traMADol HCl 50 MG TAB PO SCH ×3 (05:50→17:21)
[2020-09-07] MEDS: Ibuprofen 800 MG TAB PO PRN (08:30)
[2020-09-07] MEDS: Mag-Al 1200 mg/1200 mg/30 ML UDCUP PO SCH ×4 (08:30→21:15)
[2020-09-07] MEDS: Senokot S 8.6-50 MG TAB PO SCH ×2 (08:30→21:14)
[2020-09-07] MEDS: Sodium Chloride 1 GM TAB PO SCH ×2 (08:30→21:14)
[2020-09-07] MEDS: Cyclobenzaprine 10 MG TAB PO PRN ×2 (08:30→17:21)
[2020-09-07] MEDS: Bisacodyl 10 MG SUPP PR SCH (08:30)
[2020-09-07] MEDS: Ferrous Sulfate 325 MG TAB PO SCH ×2 (08:31→21:15)
[2020-09-07] MEDS: Polyethylene Glycol 3350 17 GM Packet PO SCH (08:31)
[2020-09-07] MEDS: Enoxaparin Sodium 80 MG/0.8 ML SYRINGE SC SCH ×2 (08:31→21:15)
[2020-09-07] MEDS: Gabapentin 300 MG CAP PO SCH ×3 (08:31→21:15)
[2020-09-07] MEDS: guaiFENesin ER 600 MG TAB PO SCH ×2 (08:31→21:15)
[2020-09-07] MEDS: Ascorbic Acid 500 mg Chewable Tablet PO SCH ×2 (08:31→21:15)
[2020-09-07] MEDS: Saccharomyces boulardii 250 MG CAP PO SCH ×2 (10:18→21:15)
[2020-09-07] MEDS ORDERED: Acthib 0.5 ML VIAL IM ONE (15:00)
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
[2020-09-07] MEDS: risperiDONE 1 MG TAB PO SCH (21:15)
[2020-09-08] MEDS: Acetaminophen 500 MG TAB PO SCH ×5 (00:11→23:41)
[2020-09-08] MEDS: traMADol HCl 50 MG TAB PO SCH ×5 (00:11→23:41)
--- NOTE | 2020-09-08 01:42 | PRG ---
DATE OF SERVICE: 09/07/2020 SUBJECTIVE: The patient was seen during evening rounds, awake, alert, in no distress, watching TV. The patient had his Urena catheter removed earlier today. The patient was bladder scanned approximately 6 hours after removal, showing about 350 mL. The patient was unable to void. The patient was in and out cathed with output of 400. Nursing staff plans to do another void trial in 6 hours and bladder scan again. OBJECTIVE: VITAL SIGNS: Stable, afebrile. PLAN: 1. Continue supportive care. 2. Continue physical and occupational therapy. 3. Continue bladder training. 4. The patient is pending placement to [facility], pending COVID results. Job ID: [id number]
[2020-09-08 06:04] LABS: #Eosinphils 0.1 thou/uL (0.0-0.7); #Lymphocytes 1.3 thou/uL (1.20-3.40); #Monocytes 0.5 thou/uL (0.11-0.59); #Neutrophils 7.3 thou/uL (1.40-6.50); %Basophils 0.4 % (0.0-1.0); %Eosinophils 1.3 % (0.0-10.0); %Lymphocytes 13.8 % (21.0-51.0); %Monocytes 5.1 % (0.0-10.0); %Neutrophils 79.4 % (42.0-75.0); Hemoglobin 9.1 g/dL (14.0-18.0); Mean Corpuscular HGB CONC 33.8 g/dL (32.0-36.0); Mean Corpuscular Hemoglobin 31.6 pg (27.0-31.0); Mean Corpuscular Volume 93.5 fL (78.0-98.0); Platelet Count 326 thou/uL (130-400); RBC Distribution Width 13.6 % (11.5-14.5); Red Blood Cell (RBC) Count 2.89 mill/uL (4.70-6.10); White Blood Cell (WBC) Count 9.2 thou/uL (4.8-10.8)
[2020-09-08 06:33] LABS: Anion Gap 11 mmol/L (10-20); BUN (Urea Nitrogen) 13 mg/dL (8.9-20.6); Calc. Creatinine Clearance 249 mL/min (70-130); Calcium 8.3 mg/dL (7.8-10.44); Carbon Dioxide 26 mmol/L (22-29); Chloride 100 mmol/L (98-107); Estimated GFR-MDRD Greater than 90; Glucose 92 mg/dL (70-105); Magnesium 2.1 mg/dL (1.6-2.6); Phosphorus 4.2 mg/dL (2.3-4.7); Potassium 4.3 mmol/L (3.5-5.1); Sodium 133 mmol/L (136-145)
[2020-09-08] MEDS ORDERED: RISPERIDONE MICROSPHERES 25 MG IM SCH (09:00)
[2020-09-08] MEDS: Ferrous Sulfate 325 MG TAB PO SCH ×2 (09:13→20:56)
[2020-09-08] MEDS: Ascorbic Acid 500 mg Chewable Tablet PO SCH ×2 (09:13→20:56)
[2020-09-08] MEDS: guaiFENesin ER 600 MG TAB PO SCH ×2 (09:13→20:56)
[2020-09-08] MEDS: Sodium Chloride 1 GM TAB PO SCH ×2 (09:13→20:56)
[2020-09-08] MEDS: Saccharomyces boulardii 250 MG CAP PO SCH ×2 (09:13→20:56)
[2020-09-08] MEDS: Senokot S 8.6-50 MG TAB PO SCH ×2 (09:13→20:56)
[2020-09-08] MEDS: Gabapentin 300 MG CAP PO SCH ×3 (09:13→20:56)
[2020-09-08] MEDS: risperiDONE 1 MG TAB PO SCH ×2 (09:13→20:56)
[2020-09-08] MEDS: Enoxaparin Sodium 80 MG/0.8 ML SYRINGE SC SCH ×2 (09:14→20:57)
[2020-09-08] MEDS: Bisacodyl 10 MG SUPP PR SCH (09:14)
[2020-09-08] MEDS: Mag-Al 1200 mg/1200 mg/30 ML UDCUP PO SCH ×4 (09:14→20:56)
[2020-09-08] MEDS: Polyethylene Glycol 3350 17 GM Packet PO SCH (09:21)
[2020-09-08 11:01] LABS: SARS-CoV-2 MS2 Positive; SARS-CoV-2 N Gene Negative; SARS-CoV-2 S Gene Negative; SARS-CoV-2 by NAA Not Detected (NotDetected); SARS-CoV-2 orf1ab Negative
[2020-09-08] MEDS: Albuterol 200 PUFF (6.7GM INHALER) INH SCH ×2 (11:32→15:54)
--- NOTE | 2020-09-08 13:21 | EKG ---
Test Reason : Blood Pressure : / mmHG Vent. Rate : 138 BPM Atrial Rate : 138 BPM P-R Int : 126 ms QRS Dur : 080 ms QT Int : 288 ms P-R-T Axes : 057 015 043 degrees QTc Int : 436 ms Sinus tachycardia Otherwise normal ECG When compared with ECG of 14-JUN-2020 16:03, Vent. rate has increased BY 52 BPM QRS duration has decreased Borderline criteria for Lateral infarct are no longer Present Confirmed by DR. Beth MOON ([id number]) on 09/08/2020 1:21:38 PM Referred By: DERRICK Confirmed By:DR. Beth MOON
[2020-09-08] MEDS: Cyclobenzaprine 10 MG TAB PO PRN (19:13)
[2020-09-08] MEDS: Ibuprofen 800 MG TAB PO PRN (19:13)
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
[2020-09-08] MEDS: oxyCODONE 5 MG TAB PO PRN (20:58)
[2020-09-09] MEDS: Albuterol 200 PUFF (6.7GM INHALER) INH SCH ×4 (00:50→14:10)
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
[2020-09-09] MEDS: Acetaminophen 500 MG TAB PO SCH ×4 (05:54→23:34)
[2020-09-09] MEDS: traMADol HCl 50 MG TAB PO SCH ×4 (05:54→23:34)
[2020-09-09] MEDS: Ascorbic Acid 500 mg Chewable Tablet PO SCH ×2 (09:36→20:48)
[2020-09-09] MEDS: Bisacodyl 10 MG SUPP PR SCH (09:36)
[2020-09-09] MEDS: guaiFENesin ER 600 MG TAB PO SCH ×2 (09:37→20:48)
[2020-09-09] MEDS: Enoxaparin Sodium 80 MG/0.8 ML SYRINGE SC SCH ×2 (09:37→20:49)
[2020-09-09] MEDS: risperiDONE 1 MG TAB PO SCH ×2 (09:37→20:48)
[2020-09-09] MEDS: Senokot S 8.6-50 MG TAB PO SCH ×2 (09:37→20:47)
[2020-09-09] MEDS: Gabapentin 300 MG CAP PO SCH ×3 (09:37→20:48)
[2020-09-09] MEDS: Mag-Al 1200 mg/1200 mg/30 ML UDCUP PO SCH ×4 (09:37→20:48)
[2020-09-09] MEDS: Ferrous Sulfate 325 MG TAB PO SCH ×2 (09:37→20:48)
[2020-09-09] MEDS: Saccharomyces boulardii 250 MG CAP PO SCH ×2 (09:37→20:48)
[2020-09-09] MEDS: Sodium Chloride 1 GM TAB PO SCH ×2 (09:37→20:47)
[2020-09-09] MEDS: Polyethylene Glycol 3350 17 GM Packet PO SCH (09:37)
[2020-09-09] MEDS: Ondansetron PF 4 MG/2 ML Vial IVP PRN (13:35)
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
[2020-09-09] MEDS: Cyclobenzaprine 10 MG TAB PO PRN (20:47)
[2020-09-10] MEDS: Acetaminophen 500 MG TAB PO SCH ×4 (05:25→23:58)
[2020-09-10] MEDS: traMADol HCl 50 MG TAB PO SCH ×4 (05:25→23:58)
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
[2020-09-10] MEDS: Senokot S 8.6-50 MG TAB PO SCH ×2 (09:31→21:35)
[2020-09-10] MEDS: Sodium Chloride 1 GM TAB PO SCH ×2 (09:31→20:26)
[2020-09-10] MEDS: Mag-Al 1200 mg/1200 mg/30 ML UDCUP PO SCH ×4 (09:31→20:26)
[2020-09-10] MEDS: Bisacodyl 10 MG SUPP PR SCH (09:32)
[2020-09-10] MEDS: Saccharomyces boulardii 250 MG CAP PO SCH ×2 (09:32→20:27)
[2020-09-10] MEDS: guaiFENesin ER 600 MG TAB PO SCH ×2 (09:32→21:35)
[2020-09-10] MEDS: Ferrous Sulfate 325 MG TAB PO SCH ×2 (09:32→20:27)
[2020-09-10] MEDS: Enoxaparin Sodium 80 MG/0.8 ML SYRINGE SC SCH ×2 (09:32→20:26)
[2020-09-10] MEDS: Gabapentin 300 MG CAP PO SCH ×3 (09:32→20:27)
[2020-09-10] MEDS: risperiDONE 1 MG TAB PO SCH ×2 (09:32→20:27)
[2020-09-10] MEDS: Polyethylene Glycol 3350 17 GM Packet PO SCH (09:32)
[2020-09-10] MEDS: Ascorbic Acid 500 mg Chewable Tablet PO SCH ×2 (09:32→20:27)
[2020-09-10] MEDS: Ondansetron ODT 4 MG TAB PO PRN (12:36)
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
[2020-09-11] MEDS: Acetaminophen 500 MG TAB PO SCH ×3 (06:10→17:06)
[2020-09-11] MEDS: traMADol HCl 50 MG TAB PO SCH ×3 (06:10→17:06)
[2020-09-11] MEDS: guaiFENesin ER 600 MG TAB PO SCH ×2 (08:41→21:08)
[2020-09-11] MEDS: risperiDONE 1 MG TAB PO SCH ×2 (08:41→21:08)
[2020-09-11] MEDS: Ascorbic Acid 500 mg Chewable Tablet PO SCH ×2 (08:41→21:08)
[2020-09-11] MEDS: Ferrous Sulfate 325 MG TAB PO SCH ×2 (08:41→21:08)
[2020-09-11] MEDS: Saccharomyces boulardii 250 MG CAP PO SCH ×2 (08:41→21:08)
[2020-09-11] MEDS: Polyethylene Glycol 3350 17 GM Packet PO SCH (08:42)
[2020-09-11] MEDS: Enoxaparin Sodium 80 MG/0.8 ML SYRINGE SC SCH ×2 (08:42→21:08)
[2020-09-11] MEDS: Gabapentin 300 MG CAP PO SCH ×3 (08:42→21:08)
[2020-09-11] MEDS: Sodium Chloride 1 GM TAB PO SCH ×2 (08:42→21:08)
[2020-09-11] MEDS: Senokot S 8.6-50 MG TAB PO SCH ×2 (08:42→21:09)
[2020-09-11] MEDS: Bisacodyl 10 MG SUPP PR SCH (08:42)
[2020-09-11] MEDS: Mag-Al 1200 mg/1200 mg/30 ML UDCUP PO SCH ×4 (08:42→21:08)
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
--- NOTE | 2020-09-12 01:12 | PRG ---
DATE OF SERVICE: 09/11/2020 SUBJECTIVE: Patient was seen during evening rounds on the surgical floor. Patient is sitting up in bed, in no distress. The patient continues to work on bladder training. Patient does void in a diaper. Patient has been getting q.8 hour bladder scans and I and O caths with very high amounts. Patient did have a bowel movement today. Patient continues to tolerate a diet. PLAN: We will have nursing do bladder scans every 4 hours and I and O caths and attempt to have less than 500 mL out. Continue supportive care. Continue physical and occupational therapy. Patient is pending placement to [facility] pending financial approval. Patient is ready for discharge at this time. Job ID: [id number]
[2020-09-12] MEDS: Acetaminophen 500 MG TAB PO SCH ×4 (04:10→17:39)
[2020-09-12] MEDS: traMADol HCl 50 MG TAB PO SCH ×4 (04:10→17:39)
[2020-09-12] MEDS: Sodium Chloride 1 GM TAB PO SCH ×2 (08:46→20:49)
[2020-09-12] MEDS: Mag-Al 1200 mg/1200 mg/30 ML UDCUP PO SCH ×4 (08:46→20:50)
[2020-09-12] MEDS: risperiDONE 1 MG TAB PO SCH ×2 (08:47→20:49)
[2020-09-12] MEDS: guaiFENesin ER 600 MG TAB PO SCH ×2 (08:47→20:49)
[2020-09-12] MEDS: Senokot S 8.6-50 MG TAB PO SCH ×2 (08:47→20:50)
[2020-09-12] MEDS: Enoxaparin Sodium 80 MG/0.8 ML SYRINGE SC SCH ×2 (08:47→20:50)
[2020-09-12] MEDS: Gabapentin 300 MG CAP PO SCH ×3 (08:47→20:49)
[2020-09-12] MEDS: Ascorbic Acid 500 mg Chewable Tablet PO SCH ×2 (08:47→20:49)
[2020-09-12] MEDS: Ferrous Sulfate 325 MG TAB PO SCH ×2 (08:47→20:49)
[2020-09-12] MEDS: Saccharomyces boulardii 250 MG CAP PO SCH ×2 (08:48→20:50)
[2020-09-12] MEDS: Polyethylene Glycol 3350 17 GM Packet PO SCH (08:48)
[2020-09-12] MEDS: Bisacodyl 10 MG SUPP PR SCH (08:48)
[2020-09-13] MEDS: traMADol HCl 50 MG TAB PO SCH ×5 (01:28→23:25)
[2020-09-13] MEDS: Acetaminophen 500 MG TAB PO SCH ×5 (01:28→23:25)
[2020-09-13] MEDS: Mag-Al 1200 mg/1200 mg/30 ML UDCUP PO SCH ×4 (09:03→20:45)
[2020-09-13] MEDS: Enoxaparin Sodium 80 MG/0.8 ML SYRINGE SC SCH ×2 (09:03→20:48)
[2020-09-13] MEDS: Sodium Chloride 1 GM TAB PO SCH ×2 (09:03→20:46)
[2020-09-13] MEDS: Senokot S 8.6-50 MG TAB PO SCH ×2 (09:04→20:56)
[2020-09-13] MEDS: Gabapentin 300 MG CAP PO SCH ×3 (09:04→20:45)
[2020-09-13] MEDS: guaiFENesin ER 600 MG TAB PO SCH ×2 (09:04→20:45)
[2020-09-13] MEDS: Saccharomyces boulardii 250 MG CAP PO SCH ×2 (09:04→20:46)
[2020-09-13] MEDS: Ferrous Sulfate 325 MG TAB PO SCH ×2 (09:05→20:46)
[2020-09-13] MEDS: risperiDONE 1 MG TAB PO SCH ×2 (09:05→20:46)
[2020-09-13] MEDS: Ascorbic Acid 500 mg Chewable Tablet PO SCH ×2 (09:05→20:46)
[2020-09-13] MEDS: Polyethylene Glycol 3350 17 GM Packet PO SCH (09:13)
[2020-09-13] MEDS: Bisacodyl 10 MG SUPP PR SCH (09:13)
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
[2020-09-14] MEDS: traMADol HCl 50 MG TAB PO SCH ×4 (05:54→23:27)
[2020-09-14] MEDS: Acetaminophen 500 MG TAB PO SCH ×4 (05:54→23:27)
[2020-09-14] MEDS: guaiFENesin ER 600 MG TAB PO SCH ×2 (08:53→20:45)
[2020-09-14] MEDS: Ascorbic Acid 500 mg Chewable Tablet PO SCH ×2 (08:53→20:33)
[2020-09-14] MEDS: Gabapentin 300 MG CAP PO SCH ×3 (08:53→20:32)
[2020-09-14] MEDS: Mag-Al 1200 mg/1200 mg/30 ML UDCUP PO SCH ×4 (08:53→20:32)
[2020-09-14] MEDS: risperiDONE 1 MG TAB PO SCH ×2 (08:54→20:33)
[2020-09-14] MEDS: Enoxaparin Sodium 80 MG/0.8 ML SYRINGE SC SCH ×2 (08:54→20:34)
[2020-09-14] MEDS: Saccharomyces boulardii 250 MG CAP PO SCH ×2 (08:54→20:33)
[2020-09-14] MEDS: Sodium Chloride 1 GM TAB PO SCH ×2 (08:54→20:33)
[2020-09-14] MEDS: Ferrous Sulfate 325 MG TAB PO SCH ×2 (08:54→20:33)
[2020-09-14] MEDS: Bisacodyl 10 MG SUPP PR SCH (08:54)
[2020-09-14] MEDS: Polyethylene Glycol 3350 17 GM Packet PO SCH (08:55)
[2020-09-14] MEDS: Senokot S 8.6-50 MG TAB PO SCH ×2 (08:55→20:33)
[2020-09-14 17:45] LABS: Prothrombin Time 13.1 sec (12.0-14.7)
[2020-09-14] MEDS ORDERED: Warfarin Sodium 10 MG TAB PO SCH (18:15)
[2020-09-15 05:22] LABS: Prothrombin Time 13.8 sec (12.0-14.7)
[2020-09-15] MEDS: Acetaminophen 500 MG TAB PO SCH ×3 (05:45→17:53)
[2020-09-15] MEDS: traMADol HCl 50 MG TAB PO SCH ×3 (05:46→17:53)
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
[2020-09-15] MEDS: Mag-Al 1200 mg/1200 mg/30 ML UDCUP PO SCH ×4 (09:29→21:59)
[2020-09-15] MEDS: Senokot S 8.6-50 MG TAB PO SCH ×2 (09:29→22:00)
[2020-09-15] MEDS: Sodium Chloride 1 GM TAB PO SCH ×2 (09:29→22:00)
[2020-09-15] MEDS: Ascorbic Acid 500 mg Chewable Tablet PO SCH ×2 (09:30→22:00)
[2020-09-15] MEDS: Ferrous Sulfate 325 MG TAB PO SCH ×2 (09:30→22:00)
[2020-09-15] MEDS: Gabapentin 300 MG CAP PO SCH ×3 (09:30→22:00)
[2020-09-15] MEDS: guaiFENesin ER 600 MG TAB PO SCH ×2 (09:30→22:01)
[2020-09-15] MEDS: risperiDONE 1 MG TAB PO SCH ×2 (09:30→22:00)
[2020-09-15] MEDS: Saccharomyces boulardii 250 MG CAP PO SCH ×2 (09:31→22:00)
[2020-09-15] MEDS: Bisacodyl 10 MG SUPP PR SCH (09:31)
[2020-09-15] MEDS: Enoxaparin Sodium 80 MG/0.8 ML SYRINGE SC SCH ×2 (09:31→22:01)
[2020-09-15] MEDS: Polyethylene Glycol 3350 17 GM Packet PO SCH ×2 (09:31→09:38)
[2020-09-15] MEDS: Ondansetron ODT 4 MG TAB PO PRN (09:43)
--- NOTE | 2020-09-15 12:33 | PDOC.FMACP ---
Advance Care Planning - Problem (1) Palliative care encounter Status: Acute Code(s): Z51.5 - ENCOUNTER FOR PALLIATIVE CARE - Note Participants: patient, palliative care Summary: Palliative Care addressed Advanced Care Planning. The diagnosis, prognosis and goals of care were discussed. Appropriate forms and documentation to accomplish the goals of care were discussed. All questions were answered. Mr Younger elected to complete a MPOA. This was done with our Registrar with original an copies provided to patient and copy placed on his chart. He had no questions at this time. Please refer to Palliative Care note in note section Thank you for this consult, Palliative Care will sign off secondary to completion of MPOA, please re consult our team if we can further assist with this patient. Time Spent (mins): 20
[2020-09-15] MEDS ORDERED: Warfarin Sodium 10 MG TAB PO SCH (17:00)
[2020-09-16] MEDS: Acetaminophen 500 MG TAB PO SCH ×4 (00:52→17:29)
[2020-09-16] MEDS: traMADol HCl 50 MG TAB PO SCH ×4 (00:52→17:37)
[2020-09-16 06:13] LABS: Hemoglobin 10.4 g/dL (14.0-18.0); Platelet Count 366 thou/uL (130-400)
[2020-09-16 06:18] LABS: Prothrombin Time 23.4 sec (12.0-14.7)
[2020-09-16] MEDS: Mag-Al 1200 mg/1200 mg/30 ML UDCUP PO SCH ×4 (09:45→21:51)
[2020-09-16] MEDS: Ascorbic Acid 500 mg Chewable Tablet PO SCH ×2 (09:46→21:52)
[2020-09-16] MEDS: risperiDONE 1 MG TAB PO SCH ×2 (09:46→21:52)
[2020-09-16] MEDS: Senokot S 8.6-50 MG TAB PO SCH ×2 (09:46→21:51)
[2020-09-16] MEDS: Saccharomyces boulardii 250 MG CAP PO SCH ×2 (09:47→21:51)
[2020-09-16] MEDS: Gabapentin 300 MG CAP PO SCH ×3 (09:47→21:52)
[2020-09-16] MEDS: guaiFENesin ER 600 MG TAB PO SCH ×2 (09:48→21:52)
[2020-09-16] MEDS: Sodium Chloride 1 GM TAB PO SCH ×2 (09:48→22:27)
[2020-09-16] MEDS: Ferrous Sulfate 325 MG TAB PO SCH ×2 (09:48→21:52)
[2020-09-16] MEDS: Enoxaparin Sodium 80 MG/0.8 ML SYRINGE SC SCH ×2 (09:49→21:59)
[2020-09-16] MEDS: Polyethylene Glycol 3350 17 GM Packet PO SCH (09:50)
[2020-09-16] MEDS: Bisacodyl 10 MG SUPP PR SCH (09:50)
[2020-09-16] MEDS: Ondansetron ODT 4 MG TAB PO PRN (11:16)
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
[2020-09-16 16:49] LABS: Bacteria/HPF None Seen HPF (None Seen); Bilirubin Negative (Negative); Blood, Urine Negative (Negative); Clarity Clear (Clear); Glucose, Urine (Dipstick) Normal (Negative); Ketone, Urine Negative (Negative); Leukocyte Negative Leu/uL (Negative); Nitrite Negative (Negative); Protein, Urine (Dipstick) Negative (Neg-Trace); RBC/HPF 0-3 HPF (0-3); Specific Gravity, Urine 1.014 (1.002-1.036); Squamous Epithelial None Seen HPF (0-3); Urobilinogen Normal mg/dL (Less than 2); WBC/HPF 0-3 HPF (0-3)
[2020-09-16 16:50] LABS: Urine Culture Reflex No No
[2020-09-16] MEDS: Warfarin Sodium 5 MG TAB PO SCH (17:30)
[2020-09-17] MEDS: traMADol HCl 50 MG TAB PO SCH ×3 (01:22→12:45)
[2020-09-17] MEDS: Acetaminophen 500 MG TAB PO SCH ×4 (01:22→17:26)
[2020-09-17 05:55] LABS: Hemoglobin 10.9 g/dL (14.0-18.0); Platelet Count 371 thou/uL (130-400)
[2020-09-17 06:02] LABS: INR-International Normal Ratio 2.3; Prothrombin Time 25.4 sec (12.0-14.7)
[2020-09-17] MEDS: Polyethylene Glycol 3350 17 GM Packet PO SCH ×2 (09:38→09:47)
[2020-09-17] MEDS: Senokot S 8.6-50 MG TAB PO SCH ×2 (09:39→21:31)
[2020-09-17] MEDS: Saccharomyces boulardii 250 MG CAP PO SCH ×2 (09:39→21:31)
[2020-09-17] MEDS: guaiFENesin ER 600 MG TAB PO SCH (09:40)
[2020-09-17] MEDS: Sodium Chloride 1 GM TAB PO SCH ×2 (09:40→21:31)
[2020-09-17] MEDS: Gabapentin 300 MG CAP PO SCH ×3 (09:40→21:32)
[2020-09-17] MEDS: Ferrous Sulfate 325 MG TAB PO SCH ×2 (09:41→21:32)
[2020-09-17] MEDS: Ascorbic Acid 500 mg Chewable Tablet PO SCH ×2 (09:42→21:31)
[2020-09-17] MEDS: Enoxaparin Sodium 80 MG/0.8 ML SYRINGE SC SCH ×2 (09:42→21:31)
[2020-09-17] MEDS: Mag-Al 1200 mg/1200 mg/30 ML UDCUP PO SCH ×2 (09:43→11:30)
[2020-09-17] MEDS: Bisacodyl 10 MG SUPP PR SCH (09:43)
[2020-09-17] MEDS: risperiDONE 1 MG TAB PO SCH ×2 (09:46→21:32)
[2020-09-17] MEDS: Cyclobenzaprine 10 MG TAB PO PRN (10:04)
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
[2020-09-17] MEDS: Warfarin Sodium 5 MG TAB PO SCH (17:31)
[2020-09-18] MEDS: Acetaminophen 500 MG TAB PO SCH ×3 (02:56→13:07)
[2020-09-18 05:18] LABS: Hemoglobin 10.4 g/dL (14.0-18.0); Platelet Count 355 thou/uL (130-400)
[2020-09-18 05:24] LABS: INR-International Normal Ratio 2.3
[2020-09-18] MEDS: Polyethylene Glycol 3350 17 GM Packet PO SCH (09:25)
[2020-09-18] MEDS: Saccharomyces boulardii 250 MG CAP PO SCH (09:25)
[2020-09-18] MEDS: Sodium Chloride 1 GM TAB PO SCH (09:25)
[2020-09-18] MEDS: Senokot S 8.6-50 MG TAB PO SCH (09:26)
[2020-09-18] MEDS: Gabapentin 300 MG CAP PO SCH (09:26)
[2020-09-18] MEDS: Ferrous Sulfate 325 MG TAB PO SCH (09:26)
[2020-09-18] MEDS: Enoxaparin Sodium 80 MG/0.8 ML SYRINGE SC SCH (09:27)
[2020-09-18] MEDS: Bisacodyl 10 MG SUPP PR SCH (09:27)
[2020-09-18] MEDS: Ascorbic Acid 500 mg Chewable Tablet PO SCH (09:27)
[2020-09-18] MEDS: risperiDONE 1 MG TAB PO SCH (09:27)
[2020-09-18] MEDS: Ondansetron ODT 4 MG TAB PO PRN (10:43)
[2020-09-18 11:36] VITALS: BP 117/77; TEMP 97.4
== END 2020-09-18 15:07 | DRG 956 ==
LOC: ERS 06:56 → CCU 07:55 → SURG A 08-27 11:35
PROVIDERS: ADMIT Specialist; ATTEND Specialist
PROC: 0QS004Z Reposition Lumbar Vertebra with Internal Fixation Device, Open Approach (ICD-10-PCS; principal; 2020-08-24)
PROC: 0QS806Z Reposition Right Femoral Shaft with Intramedullary Internal Fixation Device, Open Approach (ICD-10-PCS; 2020-08-24)
PROC: 0RG6071 Fusion of Thoracic Vertebral Joint with Autologous Tissue Substitute, Posterior Approach, Posterior Column, Open Approach (ICD-10-PCS; 2020-08-24)
PROC: 0RGA071 Fusion of Thoracolumbar Vertebral Joint with Autologous Tissue Substitute, Posterior Approach, Posterior Column, Open Approach (ICD-10-PCS; 2020-08-24)
PROC: 0SG1071 Fusion of 2 or more Lumbar Vertebral Joints with Autologous Tissue Substitute, Posterior Approach, Posterior Column, Open Approach (ICD-10-PCS; 2020-08-24)
PROC: 01NB0ZZ Release Lumbar Nerve, Open Approach (ICD-10-PCS; 2020-08-24)
PROC: 00NY0ZZ Release Lumbar Spinal Cord, Open Approach (ICD-10-PCS; 2020-08-24)
PROC: 04L23DZ Occlusion of Gastric Artery with Intraluminal Device, Percutaneous Approach (ICD-10-PCS; 2020-08-24)
PROC: 047 Lower Arteries, Dilation (ICD-10-PCS; 2020-08-24)
PROC: B4101ZZ Fluoroscopy of Abdominal Aorta using Low Osmolar Contrast (ICD-10-PCS; 2020-08-24)
PROC: B3121ZZ Fluoroscopy of Left Subclavian Artery using Low Osmolar Contrast (ICD-10-PCS; 2020-08-24)
PROC: 30233L1 Transfusion of Nonautologous Fresh Plasma into Peripheral Vein, Percutaneous Approach (ICD-10-PCS; 2020-08-24)
PROC: 30233N1 Transfusion of Nonautologous Red Blood Cells into Peripheral Vein, Percutaneous Approach (ICD-10-PCS; 2020-08-24)
PROC: 0PSG04Z Reposition Left Humeral Shaft with Internal Fixation Device, Open Approach (ICD-10-PCS; 2020-08-26)
DX: S24.103A Unspecified injury at T7-T10 level of thoracic spinal cord, initial encounter (principal); S72.301B Unspecified fracture of shaft of right femur, initial encounter for open fracture type I or II; T79.4XXA Traumatic shock, initial encounter; J96.90 Respiratory failure, unspecified, unspecified whether with hypoxia or hypercapnia; U07.1 COVID-19; I26.99 Other pulmonary embolism without acute cor pulmonale; S42.402A Unspecified fracture of lower end of left humerus, initial encounter for closed fracture; S32.10XA Unspecified fracture of sacrum, initial encounter for closed fracture; S27.0XXA Traumatic pneumothorax, initial encounter; D62 Acute posthemorrhagic anemia; E87.2 Acidosis; J98.11 Atelectasis; E87.1 Hypo-osmolality and hyponatremia; S22.20XA Unspecified fracture of sternum, initial encounter for closed fracture; S32.011A Stable burst fracture of first lumbar vertebra, initial encounter for closed fracture; S32.9XXA Fracture of unspecified parts of lumbosacral spine and pelvis, initial encounter for closed fracture; S22.32XA Fracture of one rib, left side, initial encounter for closed fracture; S22.31XA Fracture of one rib, right side, initial encounter for closed fracture; S36.039A Unspecified laceration of spleen, initial encounter; G82.21 Paraplegia, complete; Z51.5 Encounter for palliative care; E83.39 Other disorders of phosphorus metabolism; T79.6XXA Traumatic ischemia of muscle, initial encounter; S22.069A Unspecified fracture of T7-T8 vertebra, initial encounter for closed fracture; F31.9 Bipolar disorder, unspecified; S00.01XA Abrasion of scalp, initial encounter; S67.22XA Crushing injury of left hand, initial encounter; Z59.0 Homelessness; V81.3XXA Occupant of railway train or railway vehicle injured in collision with other object, initial encounter
CPT/HCPCS: 36415; 36416; 36430; 37244; 51702; 70450; 70486; 70498; 71045; 71260; 71275; 72170; 74018; 74177; 75625; 76000; 76942; 80048; 80053; 80202; 80306; 80307; 81001; 81003; 81015; 82550; 82553; 82805; 83605; 83735; 83880; 84100; 84484; 85014; 85018; 85025; 85049; 85060; 85610; 85730; 86850; 86900; 86901; 87070; 87086; 87205; 87635; 90471; 90648; 90662; 90715; 90733; 93005; 93010; 93970; 94002; 94760; 96365; 99152; 99153; C1713; C1751; C1768; C1769; C9113; G0008; G0390; J0690; J1100; J1644; J1650; J1815; J1940; J2001; J2250; J2270; J2370; J2405; J2704; J3010; J3370; J3475; J3490; J7050; J8540; L0639; P9016; P9045; P9048; Q0162; Q9967; U0002; U0003

== ENCOUNTER 2020-11-08 22:28 | Emergency (ER) | payer SELFPAY | END 2020-11-08 23:55 | LOC: ERS 22:28 | DX: F32.9 Major depressive disorder, single episode, unspecified (principal); F17.210 Nicotine dependence, cigarettes, uncomplicated | CPT/HCPCS: 99284 ==

== ENCOUNTER 2021-03-31 10:20 | Emergency (ER) | payer MEDICAID ==
[2021-03-31 10:53] LABS: #Eosinphils 0.2 thou/uL (0.0-0.7); #Lymphocytes 1.9 thou/uL (1.20-3.40); #Monocytes 0.6 thou/uL (0.11-0.59); #Neutrophils 8.4 thou/uL (1.40-6.50); %Basophils 0.2 % (0.0-1.0); %Eosinophils 1.9 % (0.0-10.0); %Lymphocytes 16.8 % (21.0-51.0); %Monocytes 5.1 % (0.0-10.0); %Neutrophils 76.1 % (42.0-75.0); Hemoglobin 14.7 g/dL (14.0-18.0); Mean Corpuscular HGB CONC 35.2 g/dL (32.0-36.0); Mean Corpuscular Hemoglobin 31.7 pg (27.0-31.0); Mean Corpuscular Volume 89.8 fL (78.0-98.0); Mean Platelet Volume 7.5 fL (7.4-10.4); Platelet Count 262 thou/uL (130-400); RBC Distribution Width 12.1 % (11.5-14.5); Red Blood Cell (RBC) Count 4.66 mill/uL (4.70-6.10); White Blood Cell (WBC) Count 11.1 thou/uL (4.8-10.8)
[2021-03-31 11:22] LABS: ALT (SGPT) 19 U/L (8-55); AST (SGOT) 13 U/L (5-34); Albumin 4.5 g/dL (3.5-5.0); Alkaline Phosphatase 108 U/L (40-110); Anion Gap 12 mmol/L (10-20); BUN (Urea Nitrogen) 15 mg/dL (8.9-20.6); Bilirubin, Total 0.5 mg/dL (0.2-1.2); Calc. Creatinine Clearance 0 mL/min (70-130); Calcium 9.8 mg/dL (7.8-10.44); Carbon Dioxide 28 mmol/L (22-29); Chloride 103 mmol/L (98-107); Globulin 2.7 g/dL (2.4-3.5); Glucose 79 mg/dL (70-105); Potassium 4.3 mmol/L (3.5-5.1); Protein, Total 7.2 g/dL (6.0-8.3); Sodium 139 mmol/L (136-145)
[2021-03-31] MEDS ORDERED: Iopamidol 370 76% 100 ML VIAL ONE (11:35)
[2021-03-31 11:58] LABS: Bilirubin Negative (Negative); Blood, Urine Negative (Negative); Clarity Extra Turbid (Clear); Glucose, Urine (Dipstick) Normal (Negative); Ketone, Urine Negative (Negative); Leukocyte 500 Leu/uL (Negative); Nitrite Negative (Negative); Protein, Urine (Dipstick) 300 mg/dL (Neg-Trace); Specific Gravity, Urine 1.018 (1.002-1.036); Urobilinogen Normal mg/dL (Less than 2); pH, Urine 8.5 (5.0-9.0)
[2021-03-31 12:06] LABS: RBC/HPF 0-3 HPF (0-3); Squamous Epithelial 0-3 HPF (0-3); WBC/HPF 0-3 HPF (0-3)
[2021-03-31 12:07] LABS: Triple Phosphate Crystal 2+ HPF (None Seen)
[2021-03-31 12:08] LABS: Bacteria/HPF Rare-Few HPF (None Seen)
== END 2021-03-31 15:58 ==
LOC: ERS 10:20
DX: T83.090A Other mechanical complication of cystostomy catheter, initial encounter (principal); K21.9 Gastro-esophageal reflux disease without esophagitis; F17.210 Nicotine dependence, cigarettes, uncomplicated; Z79.899 Other long term (current) drug therapy
CPT/HCPCS: 36415; 51702; 74177; 80053; 81003; 81015; 85025; Q9967

== ENCOUNTER 2022-03-21 02:31 | Emergency (ER) | payer MEDICAID, OTHER | END 2022-03-21 05:27 | LOC: ERS 02:31 | DX: N48.89 Other specified disorders of penis (principal); K21.9 Gastro-esophageal reflux disease without esophagitis; F17.210 Nicotine dependence, cigarettes, uncomplicated; G82.20 Paraplegia, unspecified | CPT/HCPCS: 51702 ==

== ENCOUNTER 2022-05-13 20:38 | Emergency (ER) | payer OTHER ==
[2022-05-13] MEDS ORDERED: Ondansetron PF 4 MG/2 ML Vial ONE (21:04)
[2022-05-13] MEDS ORDERED: Acetaminophen 500 MG TAB ONE (21:04)
[2022-05-13 21:33] LABS: #Basophils 0.1 thou/uL (0.0-0.2); #Eosinphils 0.2 thou/uL (0.0-0.7); #Lymphocytes 2.2 thou/uL (1.20-3.40); #Monocytes 0.5 thou/uL (0.11-0.59); #Neutrophils 10.4 thou/uL (1.40-6.50); %Basophils 0.5 % (0.0-1.0); %Eosinophils 1.5 % (0.0-10.0); %Lymphocytes 16.6 % (21.0-51.0); %Monocytes 3.5 % (0.0-10.0); %Neutrophils 77.9 % (42.0-75.0); Hemoglobin 16.3 g/dL (14.0-18.0); Mean Corpuscular HGB CONC 33.9 g/dL (32.0-36.0); Mean Corpuscular Hemoglobin 31.2 pg (27.0-31.0); Mean Corpuscular Volume 92.1 fL (78.0-98.0); Mean Platelet Volume 8.5 fL (7.4-10.4); Platelet Count 248 thou/uL (130-400); RBC Distribution Width 12.3 % (11.5-14.5); Red Blood Cell (RBC) Count 5.23 mill/uL (4.70-6.10); White Blood Cell (WBC) Count 13.3 thou/uL (4.8-10.8)
[2022-05-13 21:40] LABS: INR-International Normal Ratio 2.9
[2022-05-13 21:41] LABS: PTT 72.9 sec (22.9-36.1)
[2022-05-13 21:57] LABS: ALT (SGPT) 20 U/L (8-55); AST (SGOT) 16 U/L (5-34); Albumin 4.8 g/dL (3.5-5.0); Alkaline Phosphatase 102 U/L (40-110); Anion Gap 17 mmol/L (10-20); BUN (Urea Nitrogen) 13 mg/dL (8.9-20.6); Bilirubin, Total 0.5 mg/dL (0.2-1.2); Calc. Creatinine Clearance 0 mL/min (70-130); Calcium 9.7 mg/dL (7.8-10.44); Carbon Dioxide 22 mmol/L (22-29); Chloride 106 mmol/L (98-107); Globulin 3.5 g/dL (2.4-3.5); Glucose 83 mg/dL (70-105); Lipase 41 U/L (8-78); Potassium 4.1 mmol/L (3.5-5.1); Protein, Total 8.3 g/dL (6.0-8.3); Sodium 141 mmol/L (136-145)
[2022-05-13 22:27] LABS: Bacteria/HPF 4+ HPF (None Seen); Bilirubin Negative (Negative); Blood, Urine 2+ (Negative); Clarity Extra Turbid (Clear); Glucose, Urine (Dipstick) Normal (Negative); Ketone, Urine 20 mg/dL (Negative); Leukocyte 500 Leu/uL (Negative); Nitrite 2+ (Negative); Protein, Urine (Dipstick) 100 mg/dL (Neg-Trace); RBC/HPF Greater than 50 HPF (0-3); Specific Gravity, Urine 1.026 (1.002-1.036); Squamous Epithelial 0-3 HPF (0-3); Triple Phosphate Crystal 1+ HPF (None Seen); Urobilinogen 6 mg/dL (Less than 2); WBC/HPF Greater than 50 HPF (0-3); pH, Urine 8.5 (5.0-9.0)
[2022-05-13 23:49] LABS: SARS-CoV-2 NAA Rapid Test Not Detected (NotDetected)
== END 2022-05-13 22:56 ==
LOC: ERS 20:38
DX: B34.9 Viral infection, unspecified (principal); Z20.822 Contact with and (suspected) exposure to COVID-19; K21.9 Gastro-esophageal reflux disease without esophagitis; F17.210 Nicotine dependence, cigarettes, uncomplicated
CPT/HCPCS: 36415; 80053; 81003; 81015; 83690; 85025; 85610; 85730; 87804; 96361; 96374; J2405; U0002

== ENCOUNTER 2022-05-20 10:10 | Emergency (ER) | payer OTHER ==
[~2022-05-20 10:10] MED LIST changes: -Divalproex Sodium 250 MG (DR) TAB ONE; +ISOVUE-370 76%-LOCM 1 ML ONE; -Lidocaine 1% (PF) 30 ML VIAL ONE; -OLANZapine 5 MG TAB ONE
[2022-05-20] MEDS ORDERED: Ondansetron ODT 4 MG TAB ONE (11:16)
[2022-05-20 11:24] LABS: #Basophils 0.1 thou/uL (0.0-0.2); #Eosinphils 0.1 thou/uL (0.0-0.7); #Lymphocytes 1.8 thou/uL (1.20-3.40); #Monocytes 0.6 thou/uL (0.11-0.59); #Neutrophils 9.9 thou/uL (1.40-6.50); %Basophils 0.5 % (0.0-1.0); %Lymphocytes 14.1 % (21.0-51.0); %Monocytes 4.9 % (0.0-10.0); %Neutrophils 79.5 % (42.0-75.0); Hemoglobin 15.4 g/dL (14.0-18.0); Mean Corpuscular Hemoglobin 30.5 pg (27.0-31.0); Mean Corpuscular Volume 92.3 fL (78.0-98.0); Mean Platelet Volume 8.4 fL (7.4-10.4); Platelet Count 247 thou/uL (130-400); RBC Distribution Width 12.4 % (11.5-14.5); Red Blood Cell (RBC) Count 5.06 mill/uL (4.70-6.10); White Blood Cell (WBC) Count 12.5 thou/uL (4.8-10.8)
[2022-05-20 11:40] LABS: AST (SGOT) 13 U/L (5-34); Bilirubin, Total 0.6 mg/dL (0.2-1.2); Calcium 9.8 mg/dL (7.8-10.44); Chloride 106 mmol/L (98-107); Potassium 4.1 mmol/L (3.5-5.1); Sodium 142 mmol/L (136-145)
[2022-05-20 11:50] LABS: ALT (SGPT) 22 U/L (8-55); Albumin 4.6 g/dL (3.5-5.0); Alkaline Phosphatase 98 U/L (40-110); BUN (Urea Nitrogen) 11 mg/dL (8.9-20.6); Calc. Creatinine Clearance 0 mL/min (70-130); Carbon Dioxide 24 mmol/L (22-29); Estimated GFR 132; Globulin 2.9 g/dL (2.4-3.5); Glucose 105 mg/dL (70-105); Protein, Total 7.5 g/dL (6.0-8.3)
[2022-05-20 12:24] LABS: Anion Gap 16 mmol/L (10-20)
[2022-05-20 12:53] LABS: Bilirubin Negative (Negative); Blood, Urine 1+ (Negative); Clarity Turbid (Clear); Glucose, Urine (Dipstick) Normal (Negative); Ketone, Urine Trace mg/dL (Negative); Leukocyte 500 Leu/uL (Negative); Nitrite 2+ (Negative); Protein, Urine (Dipstick) 70 mg/dL (Neg-Trace); Specific Gravity, Urine 1.026 (1.002-1.036); pH, Urine 8.5 (5.0-9.0)
[2022-05-20 12:59] LABS: Bacteria/HPF 3+ HPF (None Seen); Squamous Epithelial 0-3 HPF (0-3)
[2022-05-20] MEDS ORDERED: CEFAZOLIN 1 GM VIAL ONE ×2 (13:42→13:43)
[2022-05-20] MEDS ORDERED: cefTRIAXone\\ROCEPHIN 1 GM VIAL ONE ×2 (13:42→13:43)
== END 2022-05-20 14:15 | disposition home or self-care (01) ==
LOC: ERS 10:10
DX: N39.0 Urinary tract infection, site not specified (principal); K59.00 Constipation, unspecified; R11.2 Nausea with vomiting, unspecified; K21.9 Gastro-esophageal reflux disease without esophagitis; F17.210 Nicotine dependence, cigarettes, uncomplicated
CPT/HCPCS: 36415; 74177; 80053; 81003; 81015; 85025; 87077; 87086; 87186; 96361; 96374; J0690; J0696; Q0162; Q9966

== ENCOUNTER 2023-05-05 21:10 | Emergency (ER) | payer OTHER ==
[2023-05-05] MEDS ORDERED: Ondansetron PF 4 MG/2 ML Vial ONE (21:26)
[2023-05-05 22:03] LABS: Bacteria/HPF 4+ HPF (None Seen); Bilirubin 1+ (Negative); Blood, Urine 3+ (Negative); CAUTI Indications for Culture Pelvic or flank pain; Clarity Extra Turbid (Clear); Glucose, Urine (Dipstick) Normal (Negative); Ketone, Urine Trace mg/dL (Negative); Leukocyte 500 Leu/uL (Negative); Nitrite Negative (Negative); Protein, Urine (Dipstick) 300 mg/dL (Neg-Trace); RBC/HPF Greater than 50 HPF (0-3); Specific Gravity, Urine 1.029 (1.002-1.036); Squamous Epithelial 0-3 HPF (0-3); Urobilinogen 3 mg/dL (Less than 2); WBC/HPF Greater than 50 HPF (0-3)
[2023-05-05 22:04] LABS: Urine Culture Reflex Yes Yes
[2023-05-05] MEDS ORDERED: Promethazine HCl 12.5 MG in Sodium Chloride 0.9% 50 ML IVPB SCH (22:30)
[2023-05-05 22:58] LABS: #Basophils 0.1 thou/uL (0.0-0.2); #Eosinphils 0.1 thou/uL (0.0-0.7); #Monocytes 0.9 thou/uL (0.11-0.59); #Neutrophils 9.3 thou/uL (1.40-6.50); %Basophils 0.6 % (0.0-1.0); %Eosinophils 0.6 % (0.0-10.0); %Lymphocytes 17.1 % (21.0-51.0); %Monocytes 7.4 % (0.0-10.0); %Neutrophils 73.7 % (42.0-75.0); Hemoglobin 14.2 g/dL (14.0-18.0); Mean Corpuscular HGB CONC 33.8 g/dL (32.0-36.0); Mean Corpuscular Volume 88.8 fl (78.0-98.0); Mean Platelet Volume 10.2 fL (7.4-10.4); Platelet Count 270 10x3/uL (130-400); RBC Distribution Width 12.8 % (11.5-14.5); Red Blood Cell (RBC) Count 4.73 mill/uL (4.70-6.10); White Blood Cell (WBC) Count 12.5 10x3/uL (4.8-10.8)
[2023-05-06 00:02] LABS: ALT (SGPT) 24 U/L (8-55); AST (SGOT) 22 U/L (5-34); Albumin 4.2 g/dL (3.5-5.0); Alkaline Phosphatase 78 U/L (40-110); Anion Gap 14 mmol/L (10-20); BUN (Urea Nitrogen) 12 mg/dL (8.9-20.6); Bilirubin, Total 0.4 mg/dL (0.2-1.2); Calc. Creatinine Clearance 0 mL/min (70-130); Calcium 8.9 mg/dL (7.8-10.44); Carbon Dioxide 24 mmol/L (22-29); Chloride 103 mmol/L (98-107); Estimated GFR 126; Globulin 2.7 g/dL (2.4-3.5); Glucose 96 mg/dL (70-105); Lipase 13 U/L (8-78); Potassium 3.3 mmol/L (3.5-5.1); Protein, Total 6.9 g/dL (6.0-8.3); Sodium 138 mmol/L (136-145)
== END 2023-05-06 00:59 ==
LOC: ERS 21:10
DX: N39.0 Urinary tract infection, site not specified (principal); R11.2 Nausea with vomiting, unspecified; D72.829 Elevated white blood cell count, unspecified; K21.9 Gastro-esophageal reflux disease without esophagitis; F17.210 Nicotine dependence, cigarettes, uncomplicated; Z79.899 Other long term (current) drug therapy; Z79.01 Long term (current) use of anticoagulants
CPT/HCPCS: 36415; 80053; 81001; 83690; 85025; 87086; 96361; 96374; 96375; J2405; J2550

== ENCOUNTER 2023-08-19 07:29 | Outpatient (CLI) | payer OTHER | END 2023-08-19 07:30 | disposition home or self-care (01) | LOC: NM 07:29 | PROVIDERS: ATTEND Physician Assistant Medical | DX: K21.00 Gastro-esophageal reflux disease with esophagitis, without bleeding (principal); K44.9 Diaphragmatic hernia without obstruction or gangrene; K59.00 Constipation, unspecified; R11.2 Nausea with vomiting, unspecified; K30 Functional dyspepsia | CPT/HCPCS: 78264; A9541 ==

== ENCOUNTER 2024-01-25 17:58 | Emergency (ER) | payer OTHER, SELFPAY ==
[2024-01-25 18:42] LABS: Bacteria/HPF 4+ HPF (None Seen); Bilirubin Negative (Negative); Blood, Urine 1+ (Negative); CAUTI Indications for Culture Pelvic or flank pain; Calcium Oxalate Crystals 4+ HPF (None Seen); Clarity Extra Turbid (Clear); Glucose, Urine (Dipstick) Normal (Negative); Ketone, Urine 10 mg/dL (Negative); Leukocyte 250 Leu/uL (Negative); Nitrite 2+ (Negative); Protein, Urine (Dipstick) 100 mg/dL (Neg-Trace); RBC/HPF 21-50 HPF (0-3); Specific Gravity, Urine 1.027 (1.002-1.036); WBC/HPF Greater than 50 HPF (0-3)
[2024-01-25 18:47] LABS: Urine Culture Reflex Yes Yes
[2024-01-25 18:49] LABS: #Basophils 0.1 thou/uL (0.0-0.2); #Eosinphils 0.2 thou/uL (0.0-0.7); #Monocytes 0.6 thou/uL (0.11-0.59); #Neutrophils 7.8 thou/uL (1.40-6.50); %Basophils 0.5 % (0.0-1.0); %Eosinophils 1.7 % (0.0-10.0); %Lymphocytes 18.6 % (21.0-51.0); %Monocytes 5.9 % (0.0-10.0); %Neutrophils 72.6 % (42.0-75.0); Hematocrit 41.8 % (42.0-52.0); Mean Corpuscular HGB CONC 33.5 g/dL (32.0-36.0); Mean Corpuscular Hemoglobin 28.1 pg (27.0-31.0); Mean Corpuscular Volume 83.9 fl (78.0-98.0); Mean Platelet Volume 9.8 fL (7.4-10.4); Platelet Count 429 10x3/uL (130-400); RBC Distribution Width 13.7 % (11.5-14.5); Red Blood Cell (RBC) Count 4.98 mill/uL (4.70-6.10); White Blood Cell (WBC) Count 10.7 10x3/uL (4.8-10.8)
[2024-01-25 19:07] LABS: ALT (SGPT) 37 U/L (8-55); AST (SGOT) 23 U/L (5-34); Albumin 4.3 g/dL (3.5-5.0); Alkaline Phosphatase 76 U/L (40-110); Anion Gap 16 mmol/L (10-20); BUN (Urea Nitrogen) 10 mg/dL (8.9-20.6); Bilirubin, Total 0.5 mg/dL (0.2-1.2); Calc. Creatinine Clearance 0 mL/min (70-130); Calcium 9.5 mg/dL (7.8-10.44); Carbon Dioxide 27 mmol/L (22-29); Chloride 101 mmol/L (98-107); Estimated GFR 126; Glucose 94 mg/dL (70-105); Lipase 13 U/L (8-78); Potassium 3.7 mmol/L (3.5-5.1); Protein, Total 8.3 g/dL (6.0-8.3); Sodium 140 mmol/L (136-145)
== END 2024-01-25 22:01 | disposition home or self-care (01) ==
LOC: ERS 17:58
DX: N39.0 Urinary tract infection, site not specified (principal); K21.9 Gastro-esophageal reflux disease without esophagitis; F17.210 Nicotine dependence, cigarettes, uncomplicated; Z79.01 Long term (current) use of anticoagulants; Z44.9 Encounter for fitting and adjustment of unspecified external prosthetic device
CPT/HCPCS: 36415; 51705; 80053; 81001; 83605; 83690; 85025; 87040; 87086

== ENCOUNTER 2024-04-08 16:25 | Emergency (ER) | payer OTHER | END 2024-04-08 20:46 | disposition home or self-care (01) | LOC: ERS 16:25 | DX: T83.098A Other mechanical complication of other urinary catheter, initial encounter (principal); G82.20 Paraplegia, unspecified; R33.9 Retention of urine, unspecified; N39.0 Urinary tract infection, site not specified; N31.9 Neuromuscular dysfunction of bladder, unspecified; M62.50 Muscle wasting and atrophy, not elsewhere classified, unspecified site; F17.210 Nicotine dependence, cigarettes, uncomplicated; Z55.6 Problems related to health literacy | CPT/HCPCS: 99283 ==

== ENCOUNTER 2024-04-17 14:18 | Emergency (ER) | payer OTHER ==
[2024-04-17 15:42] LABS: #Basophils 0.05 10x3/uL (0.0-0.2); %Basophils 0.5 % (0.0-1.0); %Eosinophils 0.8 % (0.0-10.0); %Lymphocytes 19.5 % (21.0-51.0); %Monocytes 5.7 % (0.0-10.0); Hemoglobin 13.9 g/dL (14.0-18.0); Mean Corpuscular HGB CONC 33.9 g/dL (32.0-36.0); Mean Corpuscular Hemoglobin 27.1 pg (27.0-31.0); Mean Corpuscular Volume 80.1 fL (78.0-98.0); Mean Platelet Volume 9.6 fL (7.4-10.4); Platelet Count 451 10x3/uL (130-400); RBC Distribution Width 15.5 % (11.5-14.5); Red Blood Cell (RBC) Count 5.12 mill/uL (4.70-6.10)
[2024-04-17 15:55] LABS: ALT (SGPT) 14 U/L (8-55); AST (SGOT) 15 U/L (5-34); Albumin 3.9 g/dL (3.5-5.0); Alkaline Phosphatase 106 U/L (40-110); Anion Gap 17 mmol/L (10-20); BUN (Urea Nitrogen) 12 mg/dL (8.9-20.6); Bilirubin, Total 0.5 mg/dL (0.2-1.2); Calc. Creatinine Clearance 0 mL/min (70-130); Calcium 9.9 mg/dL (7.8-10.44); Carbon Dioxide 20 mmol/L (22-29); Chloride 105 mmol/L (98-107); Estimated GFR 130; Glucose 95 mg/dL (70-105); Potassium 3.4 mmol/L (3.5-5.1); Protein, Total 7.9 g/dL (6.0-8.3); Sodium 139 mmol/L (136-145)
[2024-04-17 16:26] LABS: Bacteria/HPF 4+ HPF (None Seen); Bilirubin Negative (Negative); Blood, Urine 1+ (Negative); CAUTI Indications for Culture Spinal Cord Injury; Glucose, Urine (Dipstick) Normal (Negative); Ketone, Urine 80 mg/dL (Negative); Leukocyte 500 Leu/uL (Negative); Nitrite 2+ (Negative); Protein, Urine (Dipstick) 300 mg/dL (Neg-Trace); RBC/HPF 21-50 HPF (0-3); Specific Gravity, Urine 1.034 (1.002-1.036); Squamous Epithelial 0-3 HPF (0-3); Urobilinogen 6 mg/dL (Less than 2); WBC/HPF Greater than 50 HPF (0-3)
[2024-04-17 16:36] LABS: Clarity Very Cloudy (Clear)
[2024-04-17 16:37] LABS: Urine Culture Reflex Yes Yes
== END 2024-04-17 18:15 | disposition home or self-care (01) ==
LOC: ERS 14:18
DX: R11.2 Nausea with vomiting, unspecified (principal); F17.210 Nicotine dependence, cigarettes, uncomplicated
CPT/HCPCS: 80053; 81001; 85025; 87077; 87086; 87186; 93005

== ENCOUNTER 2024-04-20 16:41 | Emergency (ER) | payer OTHER ==
[2024-04-20] MEDS ORDERED: Haloperidol Lactate 5 MG/ML VIAL ONE (17:43)
[2024-04-20 18:20] LABS: #Basophils 0.08 10x3/uL (0.0-0.2); %Basophils 0.5 % (0.0-1.0); %Eosinophils 1.4 % (0.0-10.0); %Lymphocytes 13.2 % (21.0-51.0); %Monocytes 4.6 % (0.0-10.0); %Neutrophils 79.6 % (42.0-75.0); Hematocrit 48.3 % (42.0-52.0); Hemoglobin 16.4 g/dL (14.0-18.0); Mean Corpuscular Hemoglobin 27.2 pg (27.0-31.0); Mean Corpuscular Volume 80.1 fL (78.0-98.0); Mean Platelet Volume 9.9 fL (7.4-10.4); Platelet Count 415 10x3/uL (130-400); RBC Distribution Width 15.4 % (11.5-14.5); Red Blood Cell (RBC) Count 6.03 mill/uL (4.70-6.10)
[2024-04-20 18:35] LABS: Lipase 18 U/L (8-78)
[2024-04-20 18:36] LABS: ALT (SGPT) 18 U/L (8-55); AST (SGOT) 18 U/L (5-34); Albumin 4.1 g/dL (3.5-5.0); Alkaline Phosphatase 103 U/L (40-110); Anion Gap 21 mmol/L (10-20); BUN (Urea Nitrogen) 12 mg/dL (8.9-20.6); Bilirubin, Total 0.7 mg/dL (0.2-1.2); Calc. Creatinine Clearance 0 mL/min (70-130); Calcium 10.3 mg/dL (7.8-10.44); Carbon Dioxide 20 mmol/L (22-29); Chloride 102 mmol/L (98-107); Estimated GFR 127; Globulin 4.6 g/dL (2.4-3.5); Glucose 79 mg/dL (70-105); Potassium 3.4 mmol/L (3.5-5.1); Protein, Total 8.7 g/dL (6.0-8.3); Sodium 140 mmol/L (136-145)
[2024-04-20 18:37] LABS: Acetaminophen Less than 10 mcg/mL (10.0-30.0); Alcohol Less than 10.0 mg/dL (Less than 10); Salicylate Less than 8.0 mg/dL (15.0-30.0)
[2024-04-20 19:44] LABS: Amphetamine Not Detected (NotDetected); Barbiturates Screen Not Detected (NotDetected); Benzodiazepine Screen Not Detected (NotDetected); Cocaine Metabolite Screen Not Detected (NotDetected); Methadone Not Detected (NotDetected); Methamphetamine Not Detected (NotDetected); Opiate Screen Detected (NotDetected); Oxycodone Screen Not Detected (NotDetected); Phencyclidine (PCP) Not Detected (NotDetected); THC/Cannabinoid Screen Detected (NotDetected); Tricyclic Screen Not Detected (NotDetected)
[2024-04-20 20:09] LABS: Bacteria/HPF 4+ HPF (None Seen); Bilirubin Negative (Negative); Blood, Urine 1+ (Negative); CAUTI Indications for Culture Dysuria,urgency,freq; Glucose, Urine (Dipstick) Normal (Negative); Ketone, Urine Greater than 150 mg/dL (Negative); Leukocyte 500 Leu/uL (Negative); Nitrite 2+ (Negative); Protein, Urine (Dipstick) 200 mg/dL (Neg-Trace); RBC/HPF 21-50 HPF (0-3); Specific Gravity, Urine 1.038 (1.002-1.036); Squamous Epithelial None Seen HPF (0-3); Urobilinogen 3 mg/dL (Less than 2); WBC/HPF Greater than 50 HPF (0-3); pH, Urine 6.5 (5.0-9.0)
[2024-04-20 20:22] LABS: Clarity Turbid (Clear)
[2024-04-20 20:23] LABS: Urine Culture Reflex Yes Yes
[2024-04-20] MEDS ORDERED: Ondansetron PF 4 MG/2 ML Vial ONE (21:09)
[2024-04-20] MEDS ORDERED: Mag-Al 1200 mg/1200 mg/30 ML UDCUP ONE (23:28)
== END 2024-04-20 21:30 ==
LOC: ERS 16:41
DX: N39.0 Urinary tract infection, site not specified (principal); R11.10 Vomiting, unspecified; F17.210 Nicotine dependence, cigarettes, uncomplicated; Z55.6 Problems related to health literacy
CPT/HCPCS: 36415; 74177; 80053; 80306; 80307; 81001; 83605; 83690; 85025; 87086; 93005; 96361; 96374; 96375; J1630; J2405

== ENCOUNTER 2024-06-07 13:39 | Inpatient (IN) | payer OTHER ==
[~2024-06-07 13:39] MED LIST changes: -ISOVUE-370 76%-LOCM 1 ML ONE; +Iopamidol-370 76% 500 ML MDV (1 ML CHARGE) ONE
[2024-06-07 14:27] LABS: #Basophils 0.06 10x3/uL (0.0-0.2); %Basophils 0.6 % (0.0-1.0); %Eosinophils 1.2 % (0.0-10.0); %Lymphocytes 21.3 % (21.0-51.0); %Monocytes 5.9 % (0.0-10.0); %Neutrophils 70.6 % (42.0-75.0); Hematocrit 43.5 % (42.0-52.0); Hemoglobin 14.9 g/dL (14.0-18.0); Mean Corpuscular HGB CONC 34.3 g/dL (32.0-36.0); Mean Corpuscular Hemoglobin 27.9 pg (27.0-31.0); Mean Corpuscular Volume 81.5 fL (78.0-98.0); Mean Platelet Volume 10.2 fL (7.4-10.4); Platelet Count 353 10x3/uL (130-400); RBC Distribution Width 14.5 % (11.5-14.5); Red Blood Cell (RBC) Count 5.34 mill/uL (4.70-6.10)
[2024-06-07 14:34] LABS: Bacteria/HPF None Seen HPF (None Seen); Bilirubin 1+ (Negative); Blood, Urine 2+ (Negative); CAUTI Indications for Culture Pelvic or flank pain; Clarity Turbid (Clear); Glucose, Urine (Dipstick) Normal (Negative); Ketone, Urine Greater than 150 mg/dL (Negative); Leukocyte 250 Leu/uL (Negative); Nitrite Negative (Negative); Protein, Urine (Dipstick) 600 mg/dL (Neg-Trace); RBC/HPF Greater than 50 HPF (0-3); Specific Gravity, Urine 1.036 (1.002-1.036); WBC/HPF Greater than 50 HPF (0-3)
[2024-06-07 14:42] LABS: Urine Culture Reflex Yes Yes
[2024-06-07 14:44] LABS: ALT (SGPT) 16 U/L (8-55); AST (SGOT) 14 U/L (5-34); Alkaline Phosphatase 85 U/L (40-110); Anion Gap 17 mmol/L (10-20); BUN (Urea Nitrogen) 13 mg/dL (8.9-20.6); Bilirubin, Total 0.7 mg/dL (0.2-1.2); CK (CPK) 134 U/L (30-200); Calc. Creatinine Clearance 0 mL/min (70-130); Calcium 9.4 mg/dL (7.8-10.44); Carbon Dioxide 23 mmol/L (22-29); Chloride 108 mmol/L (98-107); Estimated GFR 129; Globulin 3.1 g/dL (2.4-3.5); Glucose 99 mg/dL (70-105); Lipase 11 U/L (8-78); Potassium 3.1 mmol/L (3.5-5.1); Protein, Total 7.1 g/dL (6.0-8.3); Sodium 145 mmol/L (136-145)
[2024-06-07 14:54] LABS: Troponin I Less than 0.010 ng/mL (< 0.028)
[2024-06-07] MEDS ORDERED: Haloperidol Lactate 5 MG/ML VIAL ONE (14:58)
[2024-06-07] MEDS ORDERED: Pantoprazole 40 MG VIAL ONE (15:07)
[2024-06-07] MEDS ORDERED: Ondansetron PF 4 MG/2 ML Vial ONE (17:08)
[2024-06-07] MEDS ORDERED: Potassium Chloride 20 MEQ (100 mL) BAG ONE (17:23)
[2024-06-07] MEDS ORDERED: Acetaminophen 650 MG Suppository PR PRN (17:53)
[2024-06-07] MEDS ORDERED: Ondansetron ODT 4 MG TAB PO PRN (17:53)
[2024-06-07] MEDS ORDERED: Electrolyte Replacement Protocol 1 EACH FS SCH (18:00)
[2024-06-07] MEDS ORDERED: Electrolyte Replacement Protocol FS PRN (18:15)
[2024-06-07 18:40] LABS: Amphetamine Not Detected (NotDetected); Barbiturates Screen Not Detected (NotDetected); Benzodiazepine Screen Not Detected (NotDetected); Cocaine Metabolite Screen Not Detected (NotDetected); Methadone Not Detected (NotDetected); Methamphetamine Not Detected (NotDetected); Opiate Screen Not Detected (NotDetected); Oxycodone Screen Not Detected (NotDetected); Phencyclidine (PCP) Not Detected (NotDetected); THC/Cannabinoid Screen Detected (NotDetected); Tricyclic Screen Not Detected (NotDetected)
[2024-06-07] MEDS ORDERED: diphenhydrAMINE 50 MG/ML VIAL IVP PRN (18:50)
[2024-06-07 19:41] LABS: Magnesium 1.4 mg/dL (1.6-2.6)
[2024-06-07 19:42] LABS: Acetaminophen Less than 10 mcg/mL (10.0-30.0); Alcohol Less than 10.0 mg/dL (Less than 10); Salicylate Less than 8.0 mg/dL (15.0-30.0)
[2024-06-07 21:15] VITALS: BMI 29.4
[2024-06-07] MEDS: Famotidine/PF 20 mg/2ml Vial SLOW IVP SCH (21:28)
[2024-06-07] MEDS: Sodium Chloride 0.9% 1,000 ML IV SCH (21:28)
[2024-06-07] MEDS: Famotidine 20 MG TAB PO SCH (21:32)
[2024-06-07] MEDS: Magnesium Sulfate In Water 4 GM in Premix 1 BAG IVPB SCH (23:27)
[2024-06-08 06:31] LABS: #Basophils 0.05 10x3/uL (0.0-0.2); %Basophils 0.6 % (0.0-1.0); %Eosinophils 3.6 % (0.0-10.0); %Lymphocytes 27.6 % (21.0-51.0); %Monocytes 5.1 % (0.0-10.0); %Neutrophils 62.5 % (42.0-75.0); Hematocrit 40.7 % (42.0-52.0); Hemoglobin 13.3 g/dL (14.0-18.0); Mean Corpuscular HGB CONC 32.7 g/dL (32.0-36.0); Mean Corpuscular Hemoglobin 27.8 pg (27.0-31.0); Mean Corpuscular Volume 85.1 fL (78.0-98.0); Platelet Count 282 10x3/uL (130-400); RBC Distribution Width 14.5 % (11.5-14.5); Red Blood Cell (RBC) Count 4.78 mill/uL (4.70-6.10)
[2024-06-08 06:47] LABS: Anion Gap 13 mmol/L (10-20); BUN (Urea Nitrogen) 8 mg/dL (8.9-20.6); Calc. Creatinine Clearance 233 mL/min (70-130); Calcium 8.5 mg/dL (7.8-10.44); Carbon Dioxide 21 mmol/L (22-29); Chloride 111 mmol/L (98-107); Estimated GFR 136; Glucose 90 mg/dL (70-105); Sodium 142 mmol/L (136-145)
[2024-06-08] MEDS: Potassium Chloride 20 MEQ in Premix 1 BAG IVPB SCH (08:09)
[2024-06-08] MEDS: Enoxaparin 40 MG (0.4 mL) SYRINGE SC SCH (08:10)
[2024-06-08] MEDS: Saccharomyces boulardii 250 MG CAP PO SCH (08:18)
[2024-06-08 10:39] LABS: Phosphorus 3.2 mg/dL (2.3-4.7)
[2024-06-08 14:36] VITALS: BMI 29.4
[2024-06-08] MEDS: Ondansetron PF 4 MG/2 ML Vial IVP PRN (17:51)
[2024-06-09] MEDS: Metoclopramide HCl 10 MG (2 mL) VIAL IVP PRN (00:38)
[2024-06-09 06:12] LABS: #Basophils 0.06 10x3/uL (0.0-0.2); %Basophils 0.5 % (0.0-1.0); %Eosinophils 2.2 % (0.0-10.0); %Lymphocytes 24.4 % (21.0-51.0); %Monocytes 4.8 % (0.0-10.0); %Neutrophils 67.6 % (42.0-75.0); Hematocrit 40.2 % (42.0-52.0); Hemoglobin 13.4 g/dL (14.0-18.0); Mean Corpuscular HGB CONC 33.3 g/dL (32.0-36.0); Mean Corpuscular Hemoglobin 28.2 pg (27.0-31.0); Mean Corpuscular Volume 84.5 fL (78.0-98.0); Mean Platelet Volume 10.3 fL (7.4-10.4); Platelet Count 324 10x3/uL (130-400); RBC Distribution Width 14.3 % (11.5-14.5); Red Blood Cell (RBC) Count 4.76 mill/uL (4.70-6.10)
[2024-06-09 06:39] LABS: Anion Gap 13 mmol/L (10-20); BUN (Urea Nitrogen) 5 mg/dL (8.9-20.6); Calc. Creatinine Clearance 225 mL/min (70-130); Calcium 8.9 mg/dL (7.8-10.44); Carbon Dioxide 20 mmol/L (22-29); Chloride 111 mmol/L (98-107); Estimated GFR 135; Glucose 86 mg/dL (70-105); Magnesium 2.1 mg/dL (1.6-2.6); Phosphorus 2.6 mg/dL (2.3-4.7); Potassium 3.3 mmol/L (3.5-5.1); Sodium 141 mmol/L (136-145)
[2024-06-09] MEDS ORDERED: Ondansetron ODT 8 MG TAB PO PRN (12:01)
[2024-06-09] MEDS ORDERED: Cyclobenzaprine 10 MG TAB PO PRN (12:01)
[2024-06-09] MEDS ORDERED: Loperamide HCl 2 MG CAP PO PRN (12:09)
[2024-06-09] MEDS: Promethazine HCl 25 MG in Sodium Chloride 0.9% 50 ML IVPB PRN (12:22)
[2024-06-09] MEDS ORDERED: Lactulose 20 GM (30 mL) UDCUP PO PRN (12:23)
[2024-06-09] MEDS: Potassium Bicarbonate/Cit Ac 20 MEQ TAB PO SCH (12:29)
[2024-06-09] MEDS: Gabapentin 300 MG CAP PO SCH (15:03)
[2024-06-09] MEDS: Prazosin HCl 1 MG CAP PO SCH (19:49)
[2024-06-09] MEDS: Metoprolol Tartrate 100 MG TAB PO SCH (19:49)
[2024-06-09] MEDS: Ziprasidone 20 MG CAP PO SCH (19:49)
[2024-06-09] MEDS: OXcarbazepine 300 MG TAB PO SCH (19:50)
[2024-06-09] MEDS: Atorvastatin Calcium 10 MG TAB PO SCH (19:51)
[2024-06-09] MEDS: Apixaban 2.5 MG TAB PO SCH (19:51)
[2024-06-09] MEDS: Ketorolac Tromethamine 30 MG (1 mL) VIAL IVP PRN (19:51)
[2024-06-10 07:46] VITALS: TEMP 97.8
[2024-06-10] MEDS: Cyanocobalamin (Vitamin B-12) 1,000 MCG TAB PO SCH (09:35)
[2024-06-10] MEDS: Sertraline 25 MG TAB PO SCH (09:35)
[2024-06-10] MEDS: Potassium Chloride 20 MEQ TAB PO SCH (09:36)
[2024-06-10] MEDS: Furosemide 20 MG TAB PO SCH (09:36)
[2024-06-10] MEDS: Pantoprazole DR 40 MG TAB PO SCH (09:36)
[2024-06-10] MEDS: Multivit, Therapeutic 1 TAB PO SCH (09:36)
[2024-06-10] MEDS: Polyethylene Glycol 3350 17 GM Packet PO SCH (09:37)
[2024-06-10] MEDS: Losartan 25 MG TAB PO SCH (09:37)
[2024-06-10] MEDS: Acetaminophen 325 MG TAB PO PRN (14:19)
[2024-06-10 17:28] VITALS: BP 147/98
== END 2024-06-10 20:32 | disposition home or self-care (01) | DRG 392 ==
LOC: ERS 13:39 → T4-A 18:34 → INTOOBSV 18:34 → OBSVTOIN 06-08 14:12
PROVIDERS: ADMIT Internal Medicine; ATTEND Internal Medicine
DX: K31.84 Gastroparesis (principal); G82.20 Paraplegia, unspecified; R11.2 Nausea with vomiting, unspecified; I10 Essential (primary) hypertension; E78.5 Hyperlipidemia, unspecified; F31.9 Bipolar disorder, unspecified; K21.9 Gastro-esophageal reflux disease without esophagitis; E87.6 Hypokalemia; E83.42 Hypomagnesemia; R33.9 Retention of urine, unspecified; F12.10 Cannabis abuse, uncomplicated; Z79.899 Other long term (current) drug therapy
CPT/HCPCS: 36415; 74177; 80048; 80053; 80306; 80307; 81001; 82550; 83605; 83690; 83735; 84100; 84484; 85025; 87086; 96361; 96374; 96375; 97139; C9113; J1630; J1650; J1885; J2405; J2550; J2765; J3475; J3480; J7050; Q9967; S0028

== ENCOUNTER 2024-08-08 13:21 | Emergency (ER) | payer OTHER ==
[2024-08-08] MEDS ORDERED: Ondansetron ODT 4 MG TAB ONE (15:14)
[2024-08-08] MEDS ORDERED: Acetaminophen 500 MG TAB ONE (15:14)
[2024-08-08 15:26] LABS: Bacteria/HPF None Seen HPF (None Seen); Bilirubin Negative (Negative); Blood, Urine Trace (Negative); CAUTI Indications for Culture Acute Hematuria; Clarity Clear (Clear); Glucose, Urine (Dipstick) Normal (Negative); Ketone, Urine Negative (Negative); Leukocyte 75 Leu/uL (Negative); Nitrite Negative (Negative); Protein, Urine (Dipstick) Negative (Neg-Trace); Squamous Epithelial None Seen HPF (0-3); Urobilinogen Normal mg/dL (Less than 2)
[2024-08-08 15:27] LABS: Urine Culture Reflex Yes Yes
== END 2024-08-08 16:22 | disposition home or self-care (01) ==
LOC: ERS 13:21
DX: N39.0 Urinary tract infection, site not specified (principal); F17.210 Nicotine dependence, cigarettes, uncomplicated
CPT/HCPCS: 81001; 87077; 87086; 99284; Q0162

== ENCOUNTER 2024-09-21 19:45 | Emergency (ER) | payer OTHER ==
[2024-09-21] MEDS ORDERED: Ondansetron ODT 4 MG TAB ONE (20:52)
[2024-09-21 21:37] LABS: Bacteria/HPF Rare-Few HPF (None Seen); Bilirubin Negative (Negative); Blood, Urine 2+ (Negative); CAUTI Indications for Culture Pelvic or flank pain; Clarity Turbid (Clear); Glucose, Urine (Dipstick) Normal (Negative); Ketone, Urine 20 mg/dL (Negative); Leukocyte 500 Leu/uL (Negative); Nitrite Negative (Negative); Protein, Urine (Dipstick) 100 mg/dL (Neg-Trace); RBC/HPF 21-50 HPF (0-3); Specific Gravity, Urine 1.034 (1.002-1.036); Squamous Epithelial 0-3 HPF (0-3); WBC/HPF Greater than 50 HPF (0-3)
[2024-09-21 21:38] LABS: Urine Culture Reflex Yes Yes
== END 2024-09-21 22:01 | disposition home or self-care (01) ==
LOC: ERS 19:45
DX: N39.0 Urinary tract infection, site not specified (principal); K21.9 Gastro-esophageal reflux disease without esophagitis; F17.210 Nicotine dependence, cigarettes, uncomplicated
CPT/HCPCS: 81001; 87077; 87086; 87186; 99283; Q0162

== ENCOUNTER 2024-10-11 20:04 | Emergency (ER) | payer OTHER ==
[2024-10-11 21:37] LABS: Bacteria/HPF None Seen HPF (None Seen); Bilirubin Negative (Negative); Blood, Urine Negative (Negative); CAUTI Indications for Culture Dysuria,urgency,freq; Clarity Clear (Clear); Glucose, Urine (Dipstick) Normal (Negative); Ketone, Urine Negative (Negative); Leukocyte 75 Leu/uL (Negative); Nitrite Negative (Negative); Protein, Urine (Dipstick) 100 mg/dL (Neg-Trace); Specific Gravity, Urine 1.017 (1.002-1.036); Squamous Epithelial 0-3 HPF (0-3); pH, Urine 8.5 (5.0-9.0)
[2024-10-11 21:38] LABS: RBC/HPF 0-3 HPF (0-3)
[2024-10-11 21:39] LABS: Urine Culture Reflex No No
[2024-10-11] MEDS ORDERED: Ondansetron ODT 4 MG TAB ONE (22:10)
== END 2024-10-11 22:42 | disposition home or self-care (01) ==
LOC: ERS 20:04
DX: T83.031A Leakage of indwelling urethral catheter, initial encounter (principal); T83.518A Infection and inflammatory reaction due to other urinary catheter, initial encounter; F17.210 Nicotine dependence, cigarettes, uncomplicated
CPT/HCPCS: 81001; 99283; Q0162

== ENCOUNTER 2024-10-24 14:41 | Emergency (ER) | payer OTHER ==
[2024-10-24] MEDS ORDERED: Ondansetron PF 4 MG/2 ML Vial ONE (15:26)
[2024-10-24] MEDS ORDERED: LevoFLOXacin 250 MG TAB ONE (15:49)
[2024-10-24 16:04] LABS: Bilirubin Negative (Negative); Blood, Urine 3+ (Negative); CAUTI Indications for Culture Acute Hematuria; Clarity Turbid (Clear); Glucose, Urine (Dipstick) Normal (Negative); Ketone, Urine 10 mg/dL (Negative); Leukocyte 75 Leu/uL (Negative); Nitrite Negative (Negative); Protein, Urine (Dipstick) 50 mg/dL (Neg-Trace); RBC/HPF Greater than 50 HPF (0-3); Specific Gravity, Urine 1.023 (1.002-1.036); Squamous Epithelial 0-3 HPF (0-3); pH, Urine 8.5 (5.0-9.0)
[2024-10-24 16:16] LABS: Bacteria/HPF Rare-Few HPF (None Seen)
[2024-10-24 16:17] LABS: Urine Culture Reflex No No
[2024-10-24] MEDS ORDERED: Ondansetron ODT 4 MG TAB ONE (18:35)
== END 2024-10-24 22:23 | disposition home or self-care (01) ==
LOC: ERS 14:41
DX: T83.098A Other mechanical complication of other urinary catheter, initial encounter (principal); N39.0 Urinary tract infection, site not specified; F17.210 Nicotine dependence, cigarettes, uncomplicated; Z79.899 Other long term (current) drug therapy
CPT/HCPCS: 51702; 81001; 96374; J2405; Q0162

== ENCOUNTER 2024-11-05 12:28 | Emergency (ER) | payer OTHER ==
[2024-11-05 14:59] LABS: Bacteria/HPF None Seen HPF (None Seen); Bilirubin Negative (Negative); Blood, Urine 2+ (Negative); CAUTI Indications for Culture Dysuria,urgency,freq; Clarity Clear (Clear); Glucose, Urine (Dipstick) Normal (Negative); Ketone, Urine Negative (Negative); Leukocyte 250 Leu/uL (Negative); Nitrite 2+ (Negative); Protein, Urine (Dipstick) Negative (Neg-Trace); Specific Gravity, Urine 1.011 (1.002-1.036); Squamous Epithelial None Seen HPF (0-3); Urobilinogen Normal mg/dL (Less than 2); WBC/HPF 21-50 HPF (0-3); pH, Urine 7.5 (5.0-9.0)
[2024-11-05 15:01] LABS: Urine Culture Reflex Yes Yes
== END 2024-11-05 15:02 | disposition home or self-care (01) ==
LOC: ERS 12:28
DX: T83.098A Other mechanical complication of other urinary catheter, initial encounter (principal); F17.210 Nicotine dependence, cigarettes, uncomplicated
CPT/HCPCS: 51102; 81001; 87077; 87086; 87186; 99283

== ENCOUNTER 2024-11-10 18:06 | Emergency (ER) | payer OTHER ==
[2024-11-10 19:08] LABS: #Basophils 0.05 10x3/uL (0.0-0.2); %Basophils 0.4 % (0.0-1.0); %Eosinophils 1.5 % (0.0-10.0); %Monocytes 4.4 % (0.0-10.0); Hematocrit 44.9 % (42.0-52.0); Hemoglobin 14.6 g/dL (14.0-18.0); Mean Corpuscular HGB CONC 32.5 g/dL (32.0-36.0); Mean Corpuscular Hemoglobin 26.9 pg (27.0-31.0); Mean Corpuscular Volume 82.8 fL (78.0-98.0); Mean Platelet Volume 9.7 fL (7.4-10.4); Platelet Count 346 10x3/uL (130-400); RBC Distribution Width 16.3 % (11.5-14.5); Red Blood Cell (RBC) Count 5.42 mill/uL (4.70-6.10)
[2024-11-10 19:22] LABS: INR-International Normal Ratio 0.9; Prothrombin Time 12.3 sec (12.0-14.7)
[2024-11-10 19:23] LABS: ALT (SGPT) 14 U/L (8-55); AST (SGOT) 13 U/L (5-34); Albumin 3.8 g/dL (3.5-5.0); Alkaline Phosphatase 85 U/L (40-110); Anion Gap 14 mmol/L (10-20); BUN (Urea Nitrogen) 8 mg/dL (8.9-20.6); Bilirubin, Total 0.4 mg/dL (0.2-1.2); Calc. Creatinine Clearance 0 mL/min (70-130); Calcium 9.3 mg/dL (7.8-10.44); Carbon Dioxide 23 mmol/L (22-29); Chloride 105 mmol/L (98-107); Estimated GFR 134; Globulin 3.8 g/dL (2.4-3.5); Glucose 88 mg/dL (70-105); PTT 29.5 sec (22.9-36.1); Potassium 3.9 mmol/L (3.5-5.1); Protein, Total 7.6 g/dL (6.0-8.3); Sodium 138 mmol/L (136-145)
[2024-11-10] MEDS ORDERED: Morphine 2 MG/ML VIAL ONE (19:24)
== END 2024-11-10 20:55 | disposition home or self-care (01) ==
LOC: ERS 18:06
DX: S72.401A Unspecified fracture of lower end of right femur, initial encounter for closed fracture (principal); F17.210 Nicotine dependence, cigarettes, uncomplicated; X50.1XXA Overexertion from prolonged static or awkward postures, initial encounter
CPT/HCPCS: 36415; 71045; 80053; 85025; 85610; 85730; 93005; 96374; J2272

== ENCOUNTER → 2025-09-28 | Emergency (ER) | payer MEDICAID ==
[~2025-09-28] MED LIST changes: +Famotidine/PF 20 mg/2ml Vial ONE; -Iopamidol-370 76% 500 ML MDV (1 ML CHARGE) ONE; +Lidocaine Viscous Sol 2% 15 ml UD Cup ONE; +Mag-Al 1200 mg/1200 mg/30 ML UDCUP ONE; +Ondansetron PF 4 MG/2 ML Vial ONE; +cefTRIAXone (ROCEPHIN) 1 GM VIAL ONE
[2025-09-29 01:22] LABS: #Basophils 0.06 10x3/uL (0.0-0.2); #Eosinophils 0.23 10x3/uL (0.0-0.7); #Monocytes 0.71 10x3/uL (0.11-0.59); #Neutrophils 8.61 10x3/uL (1.40-6.50); %Basophils 0.5 % (0.0-1.0); %Eosinophils 1.9 % (0.0-10.0); %Lymphocytes 19.8 % (21.0-51.0); %Monocytes 5.9 % (0.0-10.0); %Neutrophils 71.2 % (42.0-75.0); Hematocrit 43.5 % (42.0-52.0); Hemoglobin 13.7 g/dL (14.0-18.0); Mean Corpuscular Hemoglobin 24.8 pg (27.0-31.0); Mean Corpuscular Volume 78.7 fL (78.0-98.0); Platelet Count 420 10x3/uL (130-400); Red Blood Cell (RBC) Count 5.53 mill/uL (4.70-6.10); White Blood Cell (WBC) Count 12.10 10x3/uL (4.8-10.8)
[2025-09-29 01:36] LABS: ALT (SGPT) 26 U/L (Less than 45); AST (SGOT) 22 U/L (11-34); Albumin 3.7 g/dL (3.1-4.5); Alkaline Phosphatase 80 U/L (40-110); Anion Gap 18 mmol/L (10-20); BUN (Urea Nitrogen) 10 mg/dL (8.9-20.6); Bilirubin, Total 0.3 mg/dL (0.3-1.2); Calc. Creatinine Clearance 0 mL/min (70-130); Calcium 9.8 mg/dL (7.8-10.44); Carbon Dioxide 23 mmol/L (22-29); Chloride 100 mmol/L (98-107); Globulin 4.7 g/dL (2.4-3.5); Glucose 106 mg/dL (70-105); Lipase 20 U/L (8-78); Magnesium 2.0 mg/dL (1.6-2.6); Potassium 3.8 mmol/L (3.5-5.1); Sodium 137 mmol/L (136-145)
[2025-09-29 02:24] LABS: Bacteria/HPF 3+ HPF (None Seen); CAUTI Indications for Culture Pelvic or flank pain; Glucose, Urine (Dipstick) Normal (Negative); Leukocyte 500 Leu/uL (Negative); Protein, Urine (Dipstick) Negative (Neg-Trace); Specific Gravity, Urine 1.010 (1.002-1.036)
[2025-09-29 02:28] LABS: Urine Culture Reflex Yes Yes
== END ==
LOC: ERS 12:28
DX: N39.0 Urinary tract infection, site not specified (principal); R11.2 Nausea with vomiting, unspecified; K21.9 Gastro-esophageal reflux disease without esophagitis; Z79.899 Other long term (current) drug therapy; Z79.01 Long term (current) use of anticoagulants; Z79.2 Long term (current) use of antibiotics
CPT/HCPCS: 36415; 80053; 81001; 83690; 83735; 85025; 87070; 87077; 87086; 87205

== ENCOUNTER 2025-11-15 01:18 | Emergency (ER) | payer MEDICAID ==
[2025-11-15 03:03] LABS: Bacteria/HPF 1+ HPF (None Seen); CAUTI Indications for Culture Urological Procedure; Glucose, Urine (Dipstick) Normal (Negative); Leukocyte 500 Leu/uL (Negative); Protein, Urine (Dipstick) 50 mg/dL (Neg-Trace); Specific Gravity, Urine 1.031 (1.002-1.036); WBC/HPF 21-50 HPF (0-3)
[2025-11-15 03:04] LABS: RBC/HPF 0-3 HPF (0-3)
[2025-11-15 03:05] LABS: Cocaine Metabolite Screen Negative (Negative); THC/Cannabinoid Screen Negative (Negative); Tricyclic Screen PRELIM POSITIVE (Negative); Urine Culture Reflex Yes Yes
[2025-11-15 05:06] LABS: #Basophils 0.07 10x3/uL (0.0-0.2); #Eosinophils 0.47 10x3/uL (0.0-0.7); #Monocytes 0.61 10x3/uL (0.11-0.59); #Neutrophils 5.58 10x3/uL (1.40-6.50); %Basophils 0.7 % (0.0-1.0); %Eosinophils 4.8 % (0.0-10.0); %Lymphocytes 30.2 % (21.0-51.0); %Monocytes 6.2 % (0.0-10.0); %Neutrophils 57.2 % (42.0-75.0); Hematocrit 38.9 % (42.0-52.0); Hemoglobin 12.3 g/dL (14.0-18.0); Mean Corpuscular Hemoglobin 25.4 pg (27.0-31.0); Mean Corpuscular Volume 80.2 fL (78.0-98.0); Platelet Count 384 10x3/uL (130-400); Red Blood Cell (RBC) Count 4.85 mill/uL (4.70-6.10); White Blood Cell (WBC) Count 9.77 10x3/uL (4.8-10.8)
[2025-11-15 05:32] LABS: Acetaminophen Less than 10 mcg/mL (Less than 10); Salicylate Less than 8.0 mg/dL (Less than 8.0)
[2025-11-15 05:33] LABS: ALT (SGPT) 10 U/L (Less than 45); AST (SGOT) 20 U/L (11-34); Albumin 3.1 g/dL (3.1-4.5); Alkaline Phosphatase 69 U/L (40-110); Anion Gap 14 mmol/L (10-20); BUN (Urea Nitrogen) 8 mg/dL (8.9-20.6); Bilirubin, Total 0.2 mg/dL (0.3-1.2); Calc. Creatinine Clearance 0 mL/min (70-130); Calcium 8.6 mg/dL (7.8-10.44); Carbon Dioxide 25 mmol/L (22-29); Chloride 105 mmol/L (98-107); Globulin 4.2 g/dL (2.4-3.5); Glucose 141 mg/dL (70-105); Potassium 3.5 mmol/L (3.5-5.1); Sodium 140 mmol/L (136-145)
== END 2025-11-15 08:50 | disposition home or self-care (01) ==
LOC: ERS 01:18
DX: N39.0 Urinary tract infection, site not specified (principal); R45.1 Restlessness and agitation; G47.8 Other sleep disorders
CPT/HCPCS: 36415; 80053; 80306; 80307; 81001; 85025; 87077; 87086; 87186; 93005; 99285